=== PATIENT | female | born 1950 | race Caucasian/White ===

== ENCOUNTER 2022-12-04 10:48 | Observation (INO) ==
[2022-12-04] MEDS ORDERED: SODIUM CHLORIDE 0.9% 1000ML 1,000 ML IV ONE ×2 (10:57→15:00)
[2022-12-04 11:37] LABS: Basophils # (auto) 0.08 K/uL (0-0.2); Basophils % (auto) 0.8 %; Eosinophils # (auto) 0.05 K/uL (0-0.50); Eosinophils % (auto) 0.5 %; Hematocrit (blood only) 43.1 % (37.0-47.0); Hemoglobin 13.8 g/dl (12.0-16.0); Immature Granulocytes # (auto) 0.07 K/uL (0.01-0.20); Immature Granulocytes % (auto) 0.7 %; Lymphocytes # (auto) 1.17 K/uL (1.2-3.4); Lymphocytes % (auto) 12.3 %; Mean Corpuscular Hemoglobin 28.3 pg (25.0-34.0); Mean Corpuscular Volume 88.3 fL (80.0-100.0); Mean Platelet Volume 9.3 fL (9.4-12.4); Monocytes # (auto) 0.59 K/uL (0.11-0.59); Monocytes % (auto) 6.2 %; Neutrophils # (auto) 7.52 K/uL (1.40-6.50); Neutrophils % (auto) 79.5 %; Platelet Count 345 K/uL (130-400); RDW Coefficient of Variation 12.8 % (11.5-14.5); RDW Standard Deviation 41.4 fL (36.4-46.3); Red Blood Count 4.88 M/uL (4.20-5.40); White Blood Count 9.48 K/ul (4.8-10.8)
[2022-12-04 11:57] LABS: Albumin Globulin Ratio 1.5 (0.9-2); Albumin Level 4.3 gm/dl (3.4-5.0); BUN Creatinine Ratio 67.2 (10-20); Bilirubin,Total 0.9 mg/dl (0.2-1.0); Calcium 9.9 mg/dl (8.5-10.1); Creatinine Clr Calc Pharmacy 69.4 ml/min; Est GFR (African American) 103.3 ml/min; Est GFR (Non-African American) 89.2 ml/min; Globulin 2.9 gm/dl (2.5-4.0); Phosphorus 3.6 mg/dl (2.5-4.9); Potassium 4.1 mmol/L (3.5-5.1); Total Protein 7.2 gm/dl (6.0-8.3); Troponin I High Sensitivity 4.4 pg/ml (0-14)
--- NOTE | 2022-12-04 11:59 | XRay Report ---
XR chest 1V portable HISTORY: Atypical chest pain. COMPARISON: Chest 11/11/2022. FINDINGS: No pneumothorax or no pleural effusions. Left-sided dual-chamber pacemaker. The heart is no rmal in size. Cervical spinal fusion hardware is again noted. The lungs are clear. No evidence for pu lmonary edema. An atrial septal closure device is present. IMPRESSION: No significant change compared to the prior study. No acute process. ACT 112: Negative or not required by law. Electronically signed by: Sarmad Dickerson M.D. 12/04/2022 11:58 AM
[2022-12-04 12:02] LABS: Thyroid Stimulating Hormone 0.232 uIu/ml (0.300-4.500)
[2022-12-04] MEDS ORDERED: diphenhydrAMINE 50 MG/ML VIAL IV STA (12:25)
[2022-12-04] MEDS ORDERED: METOCLOPRAMIDE HCL INJ 5 MG/ML 2 ML VIAL IV STA (12:25)
[2022-12-04] MEDS ORDERED: FAMOTIDINE 20MG IV PUSH 20 MG/5 ML SYR IV STA (12:27)
[2022-12-04 12:37] LABS: T4 Free Thyroxine 1.45 ng/dl (0.61-1.60)
[2022-12-04] MEDS ORDERED: OPTIRAY 320 500ml IV ONE (13:51)
--- NOTE | 2022-12-04 14:10 | CT Scan Report ---
UNENHANCED CT OF THE BRAIN; CT ANGIOGRAM OF THE BRAIN; CT ANGIOGRAM OF THE NECK CLINICAL HISTORY: Vertigo. COMPARISON STUDY: CT of the brain dated 10/14/2022. TECHNIQUE: Unenhanced axial CT scan of the brain is performed. Subsequently, following the IV adminis tration of 108 of [employer] 320, CT angiogram of the head and neck was performed from the aortic arch t o the vertex. Images are reviewed in the axial, sagittal, and coronal planes. 3-D MIPS images are cre ated and assessed. IV contrast was administered without complication. All measurements were calculate d based on NASCET criteria. A dose lowering technique was utilized adhering to the principles of ALA RA. The examinations are compromised by motion artifact. CT DOSE: 2791.83 mGy.cm FINDINGS: Brain parenchyma: There is age-related involutional change noting moderate subcortical and periventri cular microangiopathic disease. There is no hemorrhage, mass effect, or evidence of acute territorial ischemia by CT criteria. There is no evidence of enhancing mass lesion on the angiogram phase images . The ventricles, sulci, and cisterns are prominent secondary to involutional change. Cox-white arielle er differentiation is preserved. No extra-axial fluid collection is seen. Thoracic aorta: There is atherosclerotic calcification of the thoracic aorta. Visualized portions of the thoracic aorta are normal in caliber. The aortic arch demonstrates standard 3-vessel anatomy. Right carotid arterial system: The right common carotid artery is widely patent, as are the right int ernal and external carotid arteries. Calcified plaque is noted in the carotid bulb. Left carotid arterial system: The left common carotid artery is widely patent, as are the left administration internship al and external carotid arteries. Calcified plaque is noted in the carotid bulb. Vertebral arteries: The vertebral arteries are widely patent bilaterally and codominant. Subclavian arteries: Widely patent bilaterally. Intracranial vasculature: There is atherosclerotic calcification of the cavernous carotid arteries. T he internal carotid arteries are patent at the skull base, as are the anterior and middle cerebral ar teries bilaterally. The vertebrobasilar system and posterior cerebral arteries are widely patent. The vertebral arteries are codominant. There are small bilateral posterior communicating arteries. There is no aneurysm, high-grade stenosis, or focal vessel cut off seen throughout the intracranial circul ation. Jugular veins: Patent bilaterally. Dural sinuses: Patent. Lung apices: Partially visualized upper lobe lung parenchyma appears clear. Soft tissues: The visualized pharyngeal soft tissues are normal in appearance noting angiographic pha se technique. The oropharyngeal airway appears widely patent. The salivary and thyroid glands are nor mal in appearance. No cervical lymphadenopathy is seen. Pacemaker leads are noted at the left thoraci c inlet. Skeletal structures: The skeletal structures are osteopenic. The calvarium appears intact. The cervic al spine is maintained thickening multilevel spondylotic and postsurgical change. No lytic or blastic lesion is seen. Orbits: The bony orbits are intact. Orbital contents are normal as visualized noting a right ocular l ens implant. Sinuses and mastoids: The paranasal sinuses are clear. The mastoid air cells are well pneumatized. IMPRESSION: 1. There is no hemorrhage, mass effect, or evidence of acute territorial ischemia by CT criteria noti ng a motion degraded examination. 2. Unremarkable CT angiogram of the brain. 3. Unremarkable CT angiogram of the neck. ACT 112: Negative or not required by law. Electronically signed by: Carlos Gallo M.D. 12/04/2022 2:07 PM
[2022-12-04] MEDS ORDERED: PROMETHAZINE 25 MG/51 ML BAG IV STA (15:00)
--- NOTE | 2022-12-04 15:11 | Emergency Department Note ---
Impression & Plan Vertigo, Dehydration, Metabolic acidosis, Intractable nausea and vomiting, Adult failure to thrive ED Provider Note NAME: BAYRON FALL AGE: 72 SEX: F ARRIVES VIA: Walk-In INFORMANT: Patient ED PROVIDER(S): Ole Khanna MD CHIEF COMPLAINT: Vertigo, nausea vomiting, referred PLAN: Disposition: Admit MEDICAL DECISION MAKING: The patient is a pleasant 72-year-old woman with a past medical history of GERD with esophagitis, depression, tardive dyskinesia, CORINA, type 2 diabetes, peripheral neuropathy, hypertension, hyperlipidemia, sick sinus syndrome status post PPM who presents to the emergency department accompanied by her daughter for evaluation of persistent symptoms of vertigo with room spinning and associated nausea and vomiting which has been chronic for months. The patient was seen in the emergency yesterday for evaluation of her symptoms of vertigo and was treated with meclizine and Ativan. She was seen by her PCP office this morning and referred to the emergency department due to persistence of symptoms and concern for dehydration. They deny fevers, chills, cough, congestion, urinary symptoms. Patient has had poor oral intake. The patient reports that she has not moved her bowels since Friday. She had been seen in the emergency department in October and also September by this provider had an unremarkable CT of her abdomen pelvis in September and KUB in October demonstrating constipation. The patient had improved at that time following IV fluid hydration, famotidine, Carafate and was started on lactulose prn. She was noted to have a mild metabolic acidosis likely related to suspected starvation ketosis given her poor oral intake. On subsequent outpatient follow-up this had resolved in the setting of her IV fluid hydration during her emergency department visit. On arrival the patient is uncomfortable but no acute distress, afebrile with stable vital signs. She appears clinically dry. She has mild epigastric discomfort without discrete tenderness. Her tardive dyskinesia is at baseline. She exhibits generalized weakness in all extremities without focal weakness. EKG without overt acute ischemia. CXR negative for acute cardiopulmonary process. WBC, H/H and platelets within normal limits. Chemistry demonstrates similar mild metabolic acidosis as was the case in October with anion gap of 19 and bicarb of 18. BUN is 43 with BUN/creatinine >60. LFTs unremarkable. High- sensitivity troponin 4.4, within normal limits. TSH is slightly low at 0.232 however free T4 within normal limits. COVID-19 RNA, JENNIFER test was negative. CT of the head and CT of the head and neck were performed and were negative for acute abnormalities. Upon evaluation the patient did report some improvement in her symptoms though still a persistence of vertigo and mild nausea. Given the patient's continued symptoms in the setting of dehydration and poor oral intake the patient and her daughter at the bedside agree with plan for admission for further management. Case was discussed with LATRICE Engle hospitalist, who will evaluate the patient for admission. Triage Nursing notes reviewed and agree them. Prior/outside medical records reviewed Vital Signs: reviewed Differential diagnosis: Benign positional vertigo, dehydration, hypovolemia, anemia, tumor, infection, hypoglycemia, electrolyte abnormalities, cardiac sources, intracerebral event, toxicologic, neurologic, as well as other pathologies. ER treatment provided: See below. Diagnostics interpreted by me: ECG: Normal sinus rhythm, 73 bpm, no ectopy, right bundle branch block, no overt ST elevation or depression, QTc 467, QRS 122 Cardiac Monitoring: An order for continuous cardiac monitoring was placed and demonstrated Normal sinus rhythm, 73 bpm, no ectopy. Laboratory studies: See below Imaging studies: See below Consultation(s): LATRICE Engle hospitalist HPI: The patient is a pleasant 72-year-old woman with a past medical history of GERD with esophagitis, depression, tardive dyskinesia, CORINA, type 2 diabetes, peripheral neuropathy, hypertension, hyperlipidemia, sick sinus syndrome status post PPM who presents to the emergency department accompanied by her daughter for evaluation of persistent symptoms of vertigo with room spinning and associated nausea and vomiting which has been chronic for months. The patient was seen in the emergency yesterday for evaluation of her symptoms of vertigo and was treated with meclizine and Ativan. She was seen by her PCP office this morning and referred to the emergency department due to persistence of symptoms and concern for dehydration. They deny fevers, chills, cough, congestion, urinary symptoms. Patient has had poor oral intake. The patient reports that she has not moved her bowels since Friday. She had been seen in the emergency department in October and also September by this provider had an unremarkable CT of her abdomen pelvis in September and KUB in October demonstrating constipation. The patient had improved at that time following IV fluid hydration, famotidine, Carafate and was started on lactulose prn. She was noted to have a mild metabolic acidosis likely related to suspected starvation ketosis given her poor oral intake. On subsequent outpatient follow-up this had resolved in the setting of her IV fluid hydration during her emergency department visit. ROS: See above HPI for pertinent positives & negatives. A total of 10 systems reviewed and were otherwise negative. VITALS:See Below PHYSICAL EXAMINATION: GENERAL: Awake, alert, fatigued/uncomfortable-appearing, in no distress HENT: Normocephalic, atraumatic. Oropharynx with dry mucous membranes and otherwise unremarkable. EYES: Normal conjunctiva. Sclera non-icteric. EOMI. No nystamgus. PEARRL. NECK: Supple. No nuchal rigidity. FROM. No JVD. RESPIRATORY: Clear to auscultation. CARDIAC: Regular rate, normal rhythm. Extremities warm and well perfused. Pulses equal. ABDOMEN: Soft, non-distended. Mild epigastric discomfort without discrete tenderness. No rebound or guarding. No masses. RECTAL: Deferred. MUSCULOSKELETAL: Chest examination reveals no tenderness. The back is symmetrical on inspection without obvious abnormality. There is no CVA tenderness to palpation. No joint edema. LOWER EXTREMITIES: Calves are equal size bilaterally and non-tender. No edema. No discoloration. NEURO:No focal sensory or motor deficits noted. Generalized weakness without focal extremity weakness. Tardive dyskinesia is at baseline. SKIN: No rash or jaundice noted. Ole Khanna MD Past Med/Surg History Medical History Asthma, mild persistent DM type 2 with diabetic peripheral neuropathy Dyslipidemia GERD with esophagitis GERD and medium-sized hiatus hernia with associated Aravind's erosions (dx [address] Portillo) s/p lap Saji Fundoplication by Dr. Peralta at [facility] [place] in May of 2021 HTN (hypertension) Iron deficiency anemia Major depressive disorder CORINA (obstructive sleep apnea) PTSD (post-traumatic stress disorder) RLS (restless legs syndrome) SSS (sick sinus syndrome) Tardive dyskinesia Vitamin D deficiency Surgical History Amputation toe H/O ovarian cystectomy Hammer toe History of appendectomy History of bladder surgery vaginal sling History of bunionectomy History of cardiac cath History of cataract surgery History of cholecystectomy History of colonoscopy History of esophagogastroduodenoscopy (EGD) History of hysterectomy History of knee replacement bilateral History of repair of hiatal hernia History of tonsillectomy Pacemaker S/P cardiac pacemaker procedure S/P cervical spinal fusion S/P repair of paraesophageal hernia Status post rotator cuff repair Family History Daughter Cervical cancer Father Gallbladder cancer Aunt Diabetes Brother Suicide Heart disease Mother Schizophrenia Suicide Social History Smoking Status: Never smoker Hx Alcohol Use: No Hx Substance Use: No Preferred Language: Tanzanian Feels Safe at Home: Yes Allergies Allergies Allergy/AdvReac Type Severity Reaction Status Date / Time camphor [From Sarna Original] Allergy Intermediate Rash Verified 12/04/22 09:42 menthol [From Sarna Original] Allergy Intermediate Rash Verified 12/04/22 09:42 adhesive Allergy Mild TAPE Verified 12/04/22 09:42 aspirin [From Aggrenox] Allergy Unknown Unknown Verified 12/04/22 09:42 chlorpromazine Allergy Unknown CAN'T Verified 12/04/22 09:42 REMEMBER dipyridamole [From Aggrenox] Allergy Unknown Unknown Verified 12/04/22 09:42 latex Allergy Unknown Unknown Verified 12/04/22 09:42 loratadine Allergy Unknown Unknown Verified 12/04/22 09:42 prazosin Allergy Unknown CAN'T Verified 12/04/22 09:42 REMEMBER sulfamethoxazole [Bactrim] Allergy Unknown CAN'T Verified 12/04/22 09:42 REMEMBER trimethoprim [Bactrim] Allergy Unknown CAN'T Verified 12/04/22 09:42 REMEMBER cyclobenzaprine AdvReac Intermediate psych Verified 12/04/22 09:42 [From Flexeril] complications oxycodone AdvReac Intermediate ITCHING Verified 12/04/22 09:42 Home Meds Home Medications Medication Instructions Recorded Confirmed insulin glargine 100 unit/mL (3 6 unit subcut QPM 10/25/22 12/04/22 mL) subcutaneous pen (Lantus Solostar U-100 Insulin) diclofenac sodium 1 % topical gel 2 g topical QID PRN Pain 11/11/22 12/04/22 (Voltaren Arthritis Pain) gabapentin 100 mg capsule 100 mg PO QPM 11/11/22 12/04/22 gabapentin 300 mg capsule 300 mg PO TID 11/11/22 12/04/22 pantoprazole 40 mg tablet,delayed 40 mg PO DAILY 11/11/22 12/04/22 release (Protonix) metoprolol tartrate 25 mg tablet 12.5 mg PO DAILY 12/04/22 12/04/22 Previous Rx's Medication Instructions Recorded albuterol sulfate 2.5 mg/3 mL 2.5 mg (3 mL) inhalation Q6H PRN 09/25/22 (0.083 %) solution for nebulization shortness of breath or wheezing #180 mL albuterol sulfate 90 mcg/actuation 2 puff inhalation Q6H PRN 09/25/22 aerosol inhaler (Proventil HFA) shortness of breath or wheezing #8.5 grams amino acids-protein hydrolysate 16 30 ml PO BID #5,760 mL 09/25/22 gram-100 kcal/30 mL oral liquid (Liquacel) aspirin 81 mg tablet,delayed 81 mg PO DAILY #90 tabs 09/25/22 release (Adult Low Dose Aspirin) budesonide-formoterol HFA 160 2 puff inhalation BID #10.2 grams 09/25/22 mcg-4.5 mcg/actuation aerosol inhaler (Symbicort) buspirone 5 mg tablet See Rx Instructions PO .COMPLEX 09/25/22 #90 tabs cholecalciferol (vitamin D3) 50 50 mcg PO DAILY #30 caps 09/25/22 mcg (2,000 unit) capsule fluticasone propionate 50 2 spray intranasal DAILY #16 grams 09/25/22 mcg/actuation nasal spray,suspension (Flonase Allergy Relief) metoclopramide HCl 5 mg tablet 5 mg PO TID PRN nausea and 09/25/22 (Reglan) vomiting #30 tabs trolamine salicylate 10 % topical 1 applic topical DAILY PRN muscle 09/25/22 cream pain #100 grams venlafaxine 150 mg 150 mg PO DAILY #90 caps 09/25/22 capsule,extended release 24 hr empagliflozin 25 mg tablet 25 mg PO DAILY #90 tabs 10/03/22 (Jardiance) pen needle, diabetic 32 gauge x #100 ea 10/03/22" (BD Ultra-Fine Shreya Pen Needle) blood sugar diagnostic (OneTouch #100 ea 10/30/22 Ultra Test strips) blood-glucose meter #1 ea 11/13/22 lisinopril 2.5 mg tablet 2.5 mg PO DAILY #30 tabs 11/13/22 atorvastatin 40 mg tablet 40 mg PO DAILY #90 tabs 11/15/22 blood sugar diagnostic (OneTouch #100 ea 11/18/22 Verio test strips) lancets (EdRoverTouch UltraSoft #200 ea 11/18/22 Lancets) meclizine 12.5 mg tablet 12.5 mg PO TID PRN dizziness #20 12/02/22 tabs Results & Data (ED) Vital Signs Vital Signs - 24 hr 12/04/22 10:50 12/04/22 11:43 12/04/22 12:00 Temperature 36.6 C Temperature Source Temporal Artery Scan Pulse Rate 77 78 Pulse Rate from SpO2 Sensor Pulse Rhythm Regular Respiratory Rate 26 H 18 Respiratory Effort / Characteristics Spontaneous Blood Pressure 138/74 155/88 H Blood Pressure Mean 95 110 Pulse Oximetry 98 100 Oxygen Delivery Method Room Air Room Air Sepsis New/Unexplained Change in Mental Status N/A Sepsis Action Taken by Nursing No Action Required 12/04/22 12:00 12/04/22 12:22 12/04/22 13:01 Temperature Temperature Source Pulse Rate 75 74 83 Pulse Rate from SpO2 Sensor 77 82 Pulse Rhythm Respiratory Rate 19 24 Respiratory Effort / Characteristics Blood Pressure Blood Pressure Mean Pulse Oximetry 100 100 Oxygen Delivery Method Sepsis New/Unexplained Change in Mental Status Sepsis Action Taken by Nursing 12/04/22 13:01 12/04/22 14:00 12/04/22 14:00 Temperature Temperature Source Pulse Rate 78 Pulse Rate from SpO2 Sensor 78 Pulse Rhythm Respiratory Rate 24 Respiratory Effort / Characteristics Blood Pressure 132/47 L 118/60 Blood Pressure Mean 75 79 Pulse Oximetry 100 Oxygen Delivery Method Sepsis New/Unexplained Change in Mental Status Sepsis Action Taken by Nursing 12/04/22 15:00 12/04/22 16:00 12/04/22 16:11 Temperature Temperature Source Pulse Rate 91 H 90 90 Pulse Rate from SpO2 Sensor Pulse Rhythm Respiratory Rate 28 H 32 H Respiratory Effort / Characteristics Blood Pressure 123/51 L 118/63 Blood Pressure Mean 75 81 Pulse Oximetry 97 98 Oxygen Delivery Method Sepsis New/Unexplained Change in Mental Status Sepsis Action Taken by Nursing Laboratory Data Attestation: I reviewed the patient's lab results. 12/04/22 11:05 12/04/22 11:05 Lab Results 12/04/22 12/04/22 12/04/22 Range/Units 11:05 11:05 11:05 WBC 9.48 (4.8-10.8) K/ul RBC 4.88 (4.20-5.40) M/uL Hgb 13.8 (12.0-16.0) g/dl Hct 43.1 (37.0-47.0) % MCV 88.3 (80.0-100.0) fL MCH 28.3 (25.0-34.0) pg MCHC 32.0 (32.0-36.0) g/dL RDW Std Deviation 41.4 (36.4-46.3) fL RDW Coeff of Peggy 12.8 (11.5-14.5) % Plt Count 345 (130-400) K/uL MPV 9.3 L (9.4-12.4) fL Immature Gran % (Auto) 0.7 % Neut % (Auto) 79.5 % Lymph % (Auto) 12.3 % Culberson % (Auto) 6.2 % Eos % (Auto) 0.5 % Baso % (Auto) 0.8 % Neut # (Auto) 7.52 H (1.40-6.50) K/uL Lymph # (Auto) 1.17 L (1.2-3.4) K/uL Culberson # (Auto) 0.59 (0.11-0.59) K/uL Eos # (Auto) 0.05 (0-0.50) K/uL Baso # (Auto) 0.08 (0-0.2) K/uL Immature Gran # (Auto) 0.07 (0.01-0.20) K/uL Sodium 135 L (136-145) mmol/L Potassium 4.1 (3.5-5.1) mmol/L Chloride 98 (98-107) mmol/L Carbon Dioxide 18 L (21-32) mmol/L Anion Gap 19 H (3-11) BUN 43 H D (6-23) mg/dl Creatinine 0.64 (0.6-1.2) mg/dl Est Cr Clr Drug Dosing 69.4 ml/min Est GFR ( Amer) 103.3 ml/min Est GFR (Non-Af Amer) 89.2 ml/min BUN/Creatinine Ratio 67.2 H (10-20) Glucose 159 H (70-99(Fasting)) mg/dl POC Glucose (70-99) mg/dl Calcium 9.9 (8.5-10.1) mg/dl Phosphorus 3.6 (2.5-4.9) mg/dl Magnesium 2.0 (1.7-2.4) mg/dl Total Bilirubin 0.9 (0.2-1.0) mg/dl AST 28 (13-39) U/L ALT 21 (7-52) U/L Alkaline Phosphatase 85 (34-104) U/L Troponin I High Sens 4.4 (0-14) pg/ml Total Protein 7.2 (6.0-8.3) gm/dl Albumin 4.3 (3.4-5.0) gm/dl Globulin 2.9 (2.5-4.0) gm/dl Albumin/Globulin Ratio 1.5 (0.9-2) Lipase 10 L (11-82) U/L TSH 0.232 L (0.300-4.500) uIu/ml Free T4 1.45 (0.61-1.60) ng/dl SARS-CoV-2, RNA, NAAT (NEGATIVE) 12/04/22 12/04/22 Range/Units 11:33 11:35 WBC (4.8-10.8) K/ul RBC (4.20-5.40) M/uL Hgb (12.0-16.0) g/dl Hct (37.0-47.0) % MCV (80.0-100.0) fL MCH (25.0-34.0) pg MCHC (32.0-36.0) g/dL RDW Std Deviation (36.4-46.3) fL RDW Coeff of Peggy (11.5-14.5) % Plt Count (130-400) K/uL MPV (9.4-12.4) fL Immature Gran % (Auto) % Neut % (Auto) % Lymph % (Auto) % Culberson % (Auto) % Eos % (Auto) % Baso % (Auto) % Neut # (Auto) (1.40-6.50) K/uL Lymph # (Auto) (1.2-3.4) K/uL Culberson # (Auto) (0.11-0.59) K/uL Eos # (Auto) (0-0.50) K/uL Baso # (Auto) (0-0.2) K/uL Immature Gran # (Auto) (0.01-0.20) K/uL Sodium (136-145) mmol/L Potassium (3.5-5.1) mmol/L Chloride (98-107) mmol/L Carbon Dioxide (21-32) mmol/L Anion Gap (3-11) BUN (6-23) mg/dl Creatinine (0.6-1.2) mg/dl Est Cr Clr Drug Dosing ml/min Est GFR ( Amer) ml/min Est GFR (Non-Af Amer) ml/min BUN/Creatinine Ratio (10-20) Glucose (70-99(Fasting)) mg/dl POC Glucose 135 H (70-99) mg/dl Calcium (8.5-10.1) mg/dl Phosphorus (2.5-4.9) mg/dl Magnesium (1.7-2.4) mg/dl Total Bilirubin (0.2-1.0) mg/dl AST (13-39) U/L ALT (7-52) U/L Alkaline Phosphatase (34-104) U/L Troponin I High Sens (0-14) pg/ml Total Protein (6.0-8.3) gm/dl Albumin (3.4-5.0) gm/dl Globulin (2.5-4.0) gm/dl Albumin/Globulin Ratio (0.9-2) Lipase (11-82) U/L TSH (0.300-4.500) uIu/ml Free T4 (0.61-1.60) ng/dl SARS-CoV-2, RNA, NAAT NEGATIVE (NEGATIVE) Administered Medications Discontinued Medications Diphenhydramine HCl (Diphenhydramine 50 Mg/Ml Vial) 12.5 mg IV NOW STA Stop: 12/04/22 12:26 Last Admin: 12/04/22 12:33 Dose: 12.5 mg Documented By: DARRYN Sodium Chloride (Nss 1000ml) 1,000 mls @ 999 mls/hr IV .Q1H1M ONE Stop: 12/04/22 11:57 Last Infusion: 12/04/22 12:56 Dose: 0 mls/hr Documented By: Admin: 12/04/22 11:32 Dose: 999 mls/hr Documented By: DARRYN Famotidine (Pepcid 20mg Iv Push) 20 mg in 5 mls @ 2.5 mls/min IV NOW STA Stop: 12/04/22 12:28 Last Admin: 12/04/22 12:35 Dose: 2.5 mls/min Documented By: DARRYN Promethazine HCl (Phenergan) 25 mg in 51 mls @ 204 mls/hr IV NOW STA Stop: 12/04/22 15:14 Last Infusion: 12/04/22 15:33 Dose: 0 mls/hr Documented By: Admin: 12/04/22 15:13 Dose: 204 mls/hr Documented By: ML Sodium Chloride (Nss 1000ml) 1,000 mls @ 999 mls/hr IV .Q1H1M ONE Stop: 12/04/22 16:00 Last Infusion: 12/04/22 16:16 Dose: 0 mls/hr Documented By: Admin: 12/04/22 15:14 Dose: 999 mls/hr Documented By: ML Ioversol (Optiray 320 500ml) 108 ml IV ONCE ONE Stop: 12/04/22 13:52 Last Admin: 12/04/22 13:52 Dose: 108 ml Documented By: MARISOL Metoclopramide HCl (Metoclopramide Hcl Inj 5 Mg/Ml 2 Ml Vial) 5 mg IV NOW STA Stop: 12/04/22 12:26 Last Admin: 12/04/22 12:35 Dose: 5 mg Documented By: DARRYN Imaging Data Radiologist's Impression: Chest X-Ray 12/04/22 11:00 XR chest 1V portable HISTORY: Atypical chest pain. COMPARISON: Chest 11/11/2022. FINDINGS: No pneumothorax or no pleural effusions. Left-sided dual-chamber pacemaker. The heart is normal in size. Cervical spinal fusion hardware is again noted. The lungs are clear. No evidence for pulmonary edema. An atrial septal closure device is present. IMPRESSION: No significant change compared to the prior study. No acute process. ACT 112: Negative or not required by law. Electronically signed by: Sarmad Dickerson M.D. 12/04/2022 11:[address] 12/04/22 12:[address] OF THE BRAIN; CT ANGIOGRAM OF THE BRAIN; CT ANGIOGRAM OF THE NECK CLINICAL HISTORY: Vertigo. COMPARISON STUDY: CT of the brain dated 10/14/2022. TECHNIQUE: Unenhanced axial CT scan of the brain is performed. Subsequently, following the IV administration of 108 of Optiray 320, CT angiogram of the head and neck was performed from the aortic arch to the vertex. Images are reviewed in the axial, sagittal, and coronal planes. 3-D MIPS images are created and assessed. IV contrast was administered without complication. All measurements were calculated based on NASCET criteria. A dose lowering technique was utilized adhering to the principles of ALARA. The examinations are compromised by motion artifact. CT DOSE: 2791.83 mGy.cm FINDINGS: Brain parenchyma: There is age-related involutional change noting moderate subcortical and periventricular microangiopathic disease. There is no hemorrhage, mass effect, or evidence of acute territorial ischemia by CT criteria. There is no evidence of enhancing mass lesion on the angiogram phase images. The ventricles, sulci, and cisterns are prominent secondary to involutional change. Cox-white matter differentiation is preserved. No extra- axial fluid collection is seen. Thoracic aorta: There is atherosclerotic calcification of the thoracic aorta. Visualized portions of the thoracic aorta are normal in caliber. The aortic arch demonstrates standard 3-vessel anatomy. Right carotid arterial system: The right common carotid artery is widely patent, as are the right internal and external carotid arteries. Calcified plaque is noted in the carotid bulb. Left carotid arterial system: The left common carotid artery is widely patent, as are the left internal and external carotid arteries. Calcified plaque is noted in the carotid bulb. Vertebral arteries: The vertebral arteries are widely patent bilaterally and codominant. Subclavian arteries: Widely patent bilaterally. Intracranial vasculature: There is atherosclerotic calcification of the cavernous carotid arteries. The internal carotid arteries are patent at the skull base, as are the anterior and middle cerebral arteries bilaterally. The vertebrobasilar system and posterior cerebral arteries are widely patent. The vertebral arteries are codominant. There are small bilateral posterior communicating arteries. There is no aneurysm, high-grade stenosis, or focal vessel cut off seen throughout the intracranial circulation. Jugular veins: Patent bilaterally. Dural sinuses: Patent. Lung apices: Partially visualized upper lobe lung parenchyma appears clear. Soft tissues: The visualized pharyngeal soft tissues are normal in appearance n oting angiographic phase technique. The oropharyngeal airway appears widely patent. The salivary and thyroid glands are normal in appearance. No cervical lymphadenopathy is seen. Pacemaker leads are noted at the left thoracic inlet. Skeletal structures: The skeletal structures are osteopenic. The calvarium appears intact. The cervical spine is maintained thickening multilevel spondylotic and postsurgical change. No lytic or blastic lesion is seen. Orbits: The bony orbits are intact. Orbital contents are normal as visualized noting a right ocular lens implant. Sinuses and mastoids: The paranasal sinuses are clear. The mastoid air cells are well pneumatized. IMPRESSION: 1. There is no hemorrhage, mass effect, or evidence of acute territorial ischem ia by CT criteria noting a motion degraded examination. 2. Unremarkable CT angiogram of the brain. 3. Unremarkable CT angiogram of the neck. ACT 112: Negative or not required by law. Electronically signed by: Carlos Gallo M.D. 12/04/2022 2:07 PM Head CTA 12/04/22 12:[address] OF THE BRAIN; CT ANGIOGRAM OF THE BRAIN; CT ANGIOGRAM OF THE NECK CLINICAL HISTORY: Vertigo. COMPARISON STUDY: CT of the brain dated 10/14/2022. TECHNIQUE: Unenhanced axial CT scan of the brain is performed. Subsequently, following the IV administration of 108 of Optiray 320, CT angiogram of the head and neck was performed from the aortic arch to the vertex. Images are reviewed in the axial, sagittal, and coronal planes. 3-D MIPS images are created and assessed. IV contrast was administered without complication. All measurements were calculated based on NASCET criteria. A dose lowering technique was utilized adhering to the principles of ALARA. The examinations are compromised by motion artifact. CT DOSE: 2791.83 mGy.cm FINDINGS: Brain parenchyma: There is age-related involutional change noting moderate subc ortical and periventricular microangiopathic disease. There is no hemorrhage, mass effect, or evidence of acute territorial ischemia by CT criteria. There is no evidence of enhancing mass lesion on the angiogram phase images. The ventricles, sulci, and cisterns are prominent secondary to involutional change. Cox-white matter differentiation is preserved. No extra-axial fluid collection is seen. Thoracic aorta: There is atherosclerotic calcification of the thoracic aorta. Visualized portions of the thoracic aorta are normal in caliber. The aortic arch demonstrates standard 3-vessel anatomy. Right carotid arterial system: The right common carotid artery is widely patent, as are the right internal and external carotid arteries. Calcified plaque is noted in the carotid bulb. Left carotid arterial system: The left common carotid artery is widely patent, as are the left internal and external carotid arteries. Calcified plaque is noted in the carotid bulb. Vertebral arteries: The vertebral arteries are widely patent bilaterally and codominant. Subclavian arteries: Widely patent bilaterally. Intracranial vasculature: There is atherosclerotic calcification of the cavernous carotid arteries. The internal carotid arteries are patent at the skull base, as are the anterior and middle cerebral arteries bilaterally. The vertebrobasilar system and posterior cerebral arteries are widely patent. The vertebral arteries are codominant. There are small bilateral posterior communicating arteries. There is no aneurysm, high-grade stenosis, or focal vessel cut off seen throughout the intracranial circulation. Jugular veins: Patent bilaterally. Dural sinuses: Patent. Lung apices: Partially visualized upper lobe lung parenchyma appears clear. Soft tissues: The visualized pharyngeal soft tissues are normal in appearance noting angiographic phase technique. The oropharyngeal airway appears widely patent. The salivary and thyroid glands are normal in appearance. No cervical lymphadenopathy is seen. Pacemaker leads are noted at the left thoracic inlet. Skeletal structures: The skeletal structures are osteopenic. The calvarium appears intact. The cervical spine is maintained thickening multilevel spondylo tic and postsurgical change. No lytic or blastic lesion is seen. Orbits: The bony orbits are intact. Orbital contents are normal as visualized noting a right ocular lens implant. Sinuses and mastoids: The paranasal sinuses are clear. The mastoid air cells are well pneumatized. IMPRESSION: 1. There is no hemorrhage, mass effect, or evidence of acute territorial ischemia by CT criteria noting a motion degraded examination. 2. Unremarkable CT angiogram of the brain. 3. Unremarkable CT angiogram of the neck. ACT 112: Negative or not required by law. Electronically signed by: Carlos Gallo M.D. 12/04/2022 2:07 PM Neck CTA 12/04/22 12:[address] OF THE BRAIN; CT ANGIOGRAM OF THE BRAIN; CT ANGIOGRAM OF THE NECK CLINICAL HISTORY: Vertigo. COMPARISON STUDY: CT of the brain dated 10/14/2022. TECHNIQUE: Unenhanced axial CT scan of the brain is performed. Subsequently, following the IV administration of 108 of Optiray 320, CT angiogram of the head and neck was performed from the aortic arch to the vertex. Images are reviewed in the axial, sagittal, and coronal planes. 3-D MIPS images are created and assessed. IV contrast was administered without complication. All measurements were calculated based on NASCET criteria. A dose lowering technique was uti lized adhering to the principles of ALARA. The examinations are compromised by motion artifact. CT DOSE: 2791.83 mGy.cm FINDINGS: Brain parenchyma: There is age-related involutional change noting moderate subcortical and periventricular microangiopathic disease. There is no hemorrhage, mass effect, or evidence of acute territorial ischemia by CT criteria. There is no evidence of enhancing mass lesion on the angiogram phase images. The ventricles, sulci, and cisterns are prominent secondary to involutional change. Cox-white matter differentiation is preserved. No extra- axial fluid collection is seen. Thoracic aorta: There is atherosclerotic calcification of the thoracic aorta. Visualized portions of the thoracic aorta are normal in caliber. The aortic arch demonstrates standard 3-vessel anatomy. Right carotid arterial system: The right common carotid artery is widely patent, as are the right internal and external carotid arteries. Calcified plaque is noted in the carotid bulb. Left carotid arterial system: The left common carotid artery is widely patent, as are the left internal and external carotid arteries. Calcified plaque is noted in the carotid bulb. Vertebral arteries: The vertebral arteries are widely patent bilaterally and codominant. Subclavian arteries: Widely patent bilaterally. Intracranial vasculature: There is atherosclerotic calcification of the cavernous carotid arteries. The internal carotid arteries are patent at the skull base, as are the anterior and middle cerebral arteries bilaterally. The vertebrobasilar system and posterior cerebral arteries are widely patent. The vertebral arteries are codominant. There are small bilateral posterior communicating arteries. There is no aneurysm, high-grade stenosis, or focal vess el cut off seen throughout the intracranial circulation. Jugular veins: Patent bilaterally. Dural sinuses: Patent. Lung apices: Partially visualized upper lobe lung parenchyma appears clear. Soft tissues: The visualized pharyngeal soft tissues are normal in appearance noting angiographic phase technique. The oropharyngeal airway appears widely patent. The salivary and thyroid glands are normal in appearance. No cervical lymphadenopathy is seen. Pacemaker leads are noted at the left thoracic inlet. Skeletal structures: The skeletal structures are osteopenic. The calvarium appears intact. The cervical spine is maintained thickening multilevel spondylotic and postsurgical change. No lytic or blastic lesion is seen. Orbits: The bony orbits are intact. Orbital contents are normal as visualized noting a right ocular lens implant. Sinuses and mastoids: The paranasal sinuses are clear. The mastoid air cells are well pneumatized. IMPRESSION: 1. There is no hemorrhage, mass effect, or evidence of acute territorial ischemia by CT criteria noting a motion degraded examination. 2. Unremarkable CT angiogram of the brain. 3. Unremarkable CT angiogram of the neck. ACT 112: Negative or not required by law. Electronically signed by: Carlos Gallo M.D. 12/04/2022 2:07 PM Discharge Plan Visit Data Chief Complaint: Weakness Stated Complaint: WEAKNESS,DIFFICULTY SPEAKING/WALKING ED Provider: Ole Khanna Discharge Problem: Vertigo, Dehydration, Metabolic acidosis, Intractable nausea and vomiting, Adult failure to thrive Forms Stand Alone Forms: My [facility] Prescriptions Prescriptions: No Action (DME) OneTouch Ultra Test Strip See Rx Instructions .ROUTE .MEDSUPPLY Qty: 100 0RF Rx Instructions: Check blood sugar before meals and at bedtime atorvastatin 40 mg tablet 40 mg PO DAILY Qty: 90 3RF (DME) lancets [OneTouch UltraSoft Lancets] [facility] See Rx Instructions .Route Qty: 200 3RF Rx Instructions: Check blood sugar before meals and at bedtime (DME) OneTouch Verio test strips Strip See Rx Instructions .Route Qty: 100 3RF Rx Instructions: Check blood sugar before meals and at bedtime Jardiance 25 mg tablet 25 mg PO DAILY Qty: 90 3RF (DME) pen needle, diabetic [BD Ultra-Fine Shreya Pen Needle] 32 gauge x 5/32" needle See Rx Instructions .ROUTE .MEDSUPPLY Qty: 100 3RF Rx Instructions: As directed lisinopril 2.5 mg tablet 2.5 mg PO DAILY Qty: 30 2RF (DME) blood-glucose meter Kit See Rx Instructions .Route Qty: 1 0RF Rx Instructions: E11.42 check BSG four times daily metoprolol tartrate 25 mg tablet 12.5 mg PO DAILY Rx Instructions: take 1/2 in am and 1/2 in pm metoclopramide HCl [Reglan] 5 mg tablet 5 mg PO TID PRN (Reason: nausea and vomiting) Qty: 30 0RF cholecalciferol (vitamin D3) 50 mcg (2,000 unit) capsule 50 mcg PO DAILY Qty: 30 0RF trolamine salicylate 10 % cream 1 applic topical DAILY PRN (Reason: muscle pain) Qty: 100 0RF albuterol sulfate 2.5 mg /3 mL (0.083 %) solution for nebulization 2.5 mg inhalation Q6H PRN (Reason: shortness of breath or wheezing) Qty: 180 3RF venlafaxine 150 mg capsule,extended release 24hr 150 mg PO DAILY Qty: 90 3RF aspirin [Adult Low Dose Aspirin] 81 mg tablet,delayed release (DR/EC) 81 mg PO DAILY Qty: 90 3RF fluticasone propionate [Flonase Allergy Relief] 50 mcg/actuation spray,suspension 2 spray intranasal DAILY Qty: 16 2RF Rx Instructions: administer into each nostril Liquacel 16-100 gram-kcal/30 mL liquid 30 ml PO BID Qty: 5760 0RF buspirone 5 mg tablet See Rx Instructions PO .COMPLEX Qty: 90 2RF Rx Instructions: 2 tabs in the morning and 1 tab in the evening orally; budesonide-formoterol [Symbicort] 160-4.5 mcg/actuation HFA aerosol inhaler 2 puff inhalation BID Qty: 10.2 3RF Rx Instructions: Rinse mouth out after use albuterol sulfate [Proventil HFA] 90 mcg/actuation HFA aerosol inhaler 2 puff inhalation Q6H PRN (Reason: shortness of breath or wheezing) Qty: 8.5 0RF insulin glargine [Lantus Solostar U-100 Insulin] 100 unit/mL (3 mL) insulin pen 6 unit subcut QPM Hold Instructions: Hypoglycemia pantoprazole [Protonix] 40 mg tablet,delayed release (DR/EC) 40 mg PO DAILY gabapentin 300 mg capsule 300 mg PO TID Rx Instructions: Take by mouth three times daily, TOTAL DOSE AT HS 400 MG. gabapentin 100 mg capsule 100 mg PO QPM Rx Instructions: TOTAL DOSE QPM 400 MG--Take with 300 MG CAP. diclofenac sodium [Voltaren Arthritis Pain] 1 % gel 2 g topical QID PRN (Reason: Pain) meclizine 12.5 mg tablet 12.5 mg PO TID PRN (Reason: dizziness) Qty: 20 0RF Referrals Referrals: Jennifer Martin CRNP [Primary Care Provider] -
--- NOTE | 2022-12-04 15:38 | History & Physical Report ---
Date of Service December 04, 2022 Assessment & Plan (1) Vertigo: Plan: Weakness, ambulatory dysfunction, vertigo. Hx BPPV Patient is with room spinning/dizziness which occurs even when laying still in bed and which has awoken her from sleep. This is different from the past, she has had BPPV with rotary nystagmus however her symptoms now occur even while laying still. DDx includes BPPV, will follow-up for stroke given increased risk. Patient has received MRIs since having a pacemaker placed, reports this is pacemaker safe. Interrogation pending. MRI brain ordered EKG without ischemic changes Chest x-ray normal No leukocytosis Patient with a elevated anion gap and bicarb of 18 in the setting of renal dysfunction TSH mildly low with normal free T4 COVID-negative CTAhead/neck without acute findings Patient does continue with vertigo and nausea which have not improved with meclizine MRI ordered given history of TIA for vertebrobasilar assessment. No hearing loss Troponin high-sensitivity is normal, no transaminitis, BSG 159 Clinically volume depleted, BUN/creatinine ratio 67.2. Admitting creatinine 0.64. 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 Follows outpatient with cardiology Continue telemetry due to weakness and presyncope, interrogation pending Asthma No maintenance inhalers, uses albuterol as needed Anxiety/depression Continue BuSpar 10 mg a.m., 5 mg p.m. Continue Effexor 150 mg daily Continue outpatient counseling on discharge DVT prophylaxis: Lovenox dose reduced for age/BMI Diet: Type II DM Disposition: Medical telemetry CODE STATUS: DNR/DNI (2) GERD with esophagitis: (3) DM type 2 with diabetic peripheral neuropathy: (4) HTN (hypertension): (5) SSS (sick sinus syndrome): (6) S/P cardiac pacemaker procedure: (7) CORINA (obstructive sleep apnea): (8) Tardive dyskinesia: History of Present Illness Primary Care Provider: MARGOTH Craig Patient was referred to the ER by her PCP on morning visit for worsening weakness with some shortness of breath. PCP noting that she is unable to care for herself and can no longer reliant on roommates, office of aging was contacted by PCP and patient was recommended for admission and case management consultation Patient seen at the bedside. She reports she generally does not eat very much and has a poor diet, has had minimal intake in the last couple of weeks. She has a history of "ear stones "which has caused "I spinning "when she has had a test being laid back in the past, but that was many years ago. Her current dizziness which got significantly worse yesterday and today feels similar and that the room spins, but happens even when she is lying perfectly still in bed. She has also felt more weak and discoordinated in both of her arms and has difficulty performing finger-nose testing. She has not had any chest pain, janel st pressure. Does not dose that she has had multiple TIAs without focal residual deficits, but is generally globally weak. She did take aspirin this morning. She does take atorvastatin. She does have dyskinesia related to past psychiatric medication treatment. She has not had any fevers or chills, she notes that her temperature tends to be a little bit lower at baseline around 96 is normal for her. She has had nausea with the room spinning, denies vomiting. Is constipated generally at baseline, no abdominal pain on admission. Denies neck pain. Denies numbness/tingling. Medical History: Reviewed Medications: Reviewed Surgical History: Reviewed Family history: Reviewed Allergies: Reviewed Social History: Denies tobacco, alcohol, substance use Code Status: DNR/DNI Allergies Allergy/AdvReac Type Severity Reaction Status Date / Time camphor [From Sarna Original] Allergy Intermediate Rash Verified 12/04/22 09:42 menthol [From Sarna Original] Allergy Intermediate Rash Verified 12/04/22 09:42 adhesive Allergy Mild TAPE Verified 12/04/22 09:42 aspirin [From Aggrenox] Allergy Unknown Unknown Verified 12/04/22 09:42 chlorpromazine Allergy Unknown CAN'T Verified 03/15/23 09:42 REMEMBER dipyridamole [From Aggrenox] Allergy Unknown Unknown Verified 12/04/22 09:42 latex Allergy Unknown Unknown Verified 12/04/22 09:42 loratadine Allergy Unknown Unknown Verified 12/04/22 09:42 prazosin Allergy Unknown CAN'T Verified 12/04/22 09:42 REMEMBER sulfamethoxazole [Bactrim] Allergy Unknown CAN'T Verified 12/04/22 09:42 REMEMBER trimethoprim [Bactrim] Allergy Unknown CAN'T Verified 12/04/22 09:42 REMEMBER cyclobenzaprine AdvReac Intermediate psych Verified 12/04/22 09:42 [From Flexeril] complications oxycodone AdvReac Intermediate ITCHING Verified 12/04/22 09:42 Home Medications Medication Instructions Recorded Confirmed Type albuterol sulfate 2.5 mg/3 mL 2.5 mg (3 mL) inhalation Q6H PRN 09/25/22 12/04/22 Rx (0.083 %) solution for nebulization shortness of breath or wheezing #180 mL albuterol sulfate 90 mcg/actuation 2 puff inhalation Q6H PRN 09/25/22 12/04/22 Rx aerosol inhaler (Proventil HFA) shortness of breath or wheezing #8.5 grams amino acids-protein hydrolysate 16 30 ml PO BID #5,760 mL 09/25/22 12/04/22 Rx gram-100 kcal/30 mL oral liquid (Liquacel) aspirin 81 mg tablet,delayed 81 mg PO DAILY #90 tabs 09/25/22 12/04/22 Rx release (Adult Low Dose Aspirin) budesonide-formoterol HFA 160 2 puff inhalation BID #10.2 grams 09/25/22 12/04/22 Rx mcg-4.5 mcg/actuation aerosol inhaler (Symbicort) buspirone 5 mg tablet See Rx Instructions PO .COMPLEX 09/25/22 12/04/22 Rx #90 tabs cholecalciferol (vitamin D3) 50 50 mcg PO DAILY #30 caps 09/25/22 12/04/22 Rx mcg (2,000 unit) capsule fluticasone propionate 50 2 spray intranasal DAILY #16 grams 09/25/22 12/04/22 Rx mcg/actuation nasal spray,suspension (Flonase Allergy Relief) metoclopramide HCl 5 mg tablet 5 mg PO TID PRN nausea and 09/25/22 12/04/22 Rx (Reglan) vomiting #30 tabs trolamine salicylate 10 % topical 1 applic topical DAILY PRN muscle 09/25/22 12/04/22 Rx cream pain #100 grams venlafaxine 150 mg 150 mg PO DAILY #90 caps 09/25/22 12/04/22 Rx capsule,extended release 24 hr empagliflozin 25 mg tablet 25 mg PO DAILY #90 tabs 10/03/22 12/04/22 Rx (Jardiance) pen needle, diabetic 32 gauge x #100 ea 10/03/22 12/04/22 Rx 532" (BD Ultra-Fine Shreya Pen Needle) insulin glargine 100 unit/mL (3 6 unit subcut QPM 10/25/22 12/04/22 History mL) subcutaneous pen (Lantus Solostar U-100 Insulin) blood sugar diagnostic (OneTouch #100 ea 10/30/22 12/04/22 Rx Ultra Test strips) diclofenac sodium 1 % topical gel 2 g topical QID PRN Pain 11/11/22 12/04/22 History (Voltaren Arthritis Pain) gabapentin 100 mg capsule 100 mg PO QPM 11/11/22 12/04/22 History gabapentin 300 mg capsule 300 mg PO TID 11/11/22 12/04/22 History pantoprazole 40 mg tablet,delayed 40 mg PO DAILY 11/11/22 12/04/22 History release (Protonix) blood-glucose meter #1 ea 11/13/22 12/04/22 Rx lisinopril 2.5 mg tablet 2.5 mg PO DAILY #30 tabs 11/13/22 12/04/22 Rx atorvastatin 40 mg tablet 40 mg PO DAILY #90 tabs 11/15/22 12/04/22 Rx blood sugar diagnostic (OneTouch #100 ea 11/18/22 12/04/22 Rx Verio test strips) [facility]anc[facility] ([facility] 11/18/22 12/04/22 Rx Lancets) meclizine 12.5 mg tablet 12.5 mg PO TID PRN dizziness #20 12/02/22 12/04/22 Rx tabs metoprolol tartrate 25 mg tablet 12.5 mg PO DAILY 12/04/22 12/04/22 History Past Med/Surg History Medical History Asthma, mild persistent DM type 2 with diabetic peripheral neuropathy Dyslipidemia GERD with esophagitis GERD and medium-sized hiatus hernia with associated Aravind's erosions (dx [address] Portillo) s/p lap Saji Fundoplication by Dr. Peralta at [facility] [place] of [place] HTN (hypertension) Iron deficiency anemia Major depressive disorder CORINA (obstructive sleep apnea) PTSD (post-traumatic stress disorder) RLS (restless legs syndrome) SSS (sick sinus syndrome) Tardive dyskinesia Vitamin D deficiency Surgical History Amputation toe H/O ovarian cystectomy Hammer toe History of appendectomy History of bladder surgery vaginal sling History of bunionectomy History of cardiac cath History of cataract surgery History of cholecystectomy History of colonoscopy History of esophagogastroduodenoscopy (EGD) History of hysterectomy History of knee replacement bilateral History of repair of hiatal hernia History of tonsillectomy Pacemaker S/P cardiac pacemaker procedure S/P cervical spinal fusion S/P repair of paraesophageal hernia Status post rotator cuff repair Family History Daughter Cervical cancer Father Gallbladder cancer Aunt Diabetes Brother Suicide Heart disease Mother Schizophrenia Suicide Social History Smoking Status: Never smoker Hx Alcohol Use: No Hx Substance Use: No Preferred Language: Israeli Feels Safe at Home: Yes Review of Systems Review of Systems: All systems reviewed & are unremarkable except as noted in HPI & below Physical Exam Physical Exam: General: A&Ox3. NAD. Cooperative. Appears weak/frail. HEENT: Atraumatic, normocephalic. Poor dentition, multiple missing teeth. Vision/hearing grossly intact. No hearing deficit. Pulm: CTAB A&P. -wheezes, -rales, -rhonchi. Symmetrical chest rise. No increased work of breathing. No respiratory distress. Cardiac: RRR, -mrg. Radial pulses intact and symmetrical. Abdominal: Nontender, nondistended, soft. BS present. CRANIAL NERVES: II: Pupils equal and reactive, no relative afferent pupillary defect, no VF cuts III, IV, : EOM intact, no gaze preference or deviation, no nystagmus. V: normal sensation in V1, V2, and V3 segments bilaterally VII: no asymmetry, no nasolabial fold flattening VIII: normal hearing to speech IX, X: normal palatal elevation, no uvular deviation XI: 5/5 head turn and 5/5 shoulder shrug bilaterally XII: midline tongue protrusion Patient with dyskinesia on heel/mcmillan and finger-nose testing. Is with dysmetria, worse than baseline per pt. Roll Capper strength/elbow flexion/extension 4 - /5, hip flexion 4 -/5, ankle dorsiflexion/plantarflexion 4/5 bilaterally Results & Data Results & Data Vital Signs (Past 12 Hours) Vital Signs Temp Pulse Resp BP Pulse Ox O2 Del Method 12/04/22 14:00 78 24 100 12/04/22 14:00 118/60 12/04/22 13:01 132/47 L 12/04/22 13:01 83 24 100 12/04/22 12:22 74 12/04/22 12:00 75 19 100 12/04/22 12:00 155/88 H 12/04/22 11:43 78 18 100 Room Air 12/04/22 10:50 36.6 C 77 26 H 138/74 98 Room Air PG Care Time/CCT Total # of Minutes Spent Total Time Spent with Patient: Total time spent is greater than 50% in coordination of care (as documented) at patient's floor/unit and/or counseling patient: Coding Level of Care Code 23778 INT INP/OBS CARE 3/75MIN Diagnoses Vertigo R42 GERD with esophagitis K21.00 DM type 2 with diabetic peripheral neuropathy E11.42 HTN (hypertension) I10 SSS (sick sinus syndrome) I49.5 S/P cardiac pacemaker procedure Z95.0 CORINA (obstructive sleep apnea) G47.33 Tardive dyskinesia G24.01
[2022-12-04 18:00] LABS: Appearance Urine Clear (Clear); Bilirubin Urine Negative (Negative); Blood Urine Negative (Negative); Color Urine Yellow; Glucose Urine UA 3+ (Negative); Ketones Urine 3+ (Negative); Leukocyte Esterase Urine Negative (Negative); Nitrite Urine Negative (Negative); Protein Urine Negative (Negative); Specific Gravity Urine > 1.045 (1.000-1.030); Urobilinogen Urine Negative (Negative)
--- NOTE | 2022-12-04 18:38 | XRay Report ---
KUB CLINICAL HISTORY: Nausea and vomiting. FINDINGS: 2 AP supine abdominal radiographs are compared to study dated 11/11/2022 and correlated with abdominal CT dated 10/14/2022. There is a nonobstructed abdominal bowel gas pattern. No evidence of i ntraperitoneal free air is seen on these supine images. Cholecystectomy clips are seen in the right u pper quadrant. Excreted IV contrast is noted within the renal collecting systems and bladder. Numerou s phleboliths are again seen in the pelvis. The skeletal structures are osteopenic and appear intact. Lumbosacral spondylosis is observed. The heart is enlarged. Pacemaker leads are in place. IMPRESSION: No acute abnormality is identified. See above. Electronically signed by: Carlos Gallo M.D. 12/04/2022 6:37 PM
[2022-12-04] MEDS ORDERED: POLYETHYLENE (MIRALAX) 17 GM PACK PO PRN (21:46)
[2022-12-04] MEDS ORDERED: MAGNESIUM HYDROXIDE SUSP 30 ML UDC PO PRN (21:46)
[2022-12-04] MEDS ORDERED: NORMOSOL-R 1,000 ML IV SCH (21:46)
[2022-12-04] MEDS: GABAPENTIN 100 MG CAP PO SCH (22:48)
[2022-12-04] MEDS: busPIRone 5 MG TAB PO SCH (22:49)
[2022-12-05] MEDS: ACETAMINOPHEN 325 MG TAB PO PRN (02:14)
[2022-12-05] MEDS: ONDANSETRON INJ 2 MG/ML 2 ML VIAL IV PRN ×3 (02:17→20:53)
[2022-12-05] MEDS ORDERED: MoRPHine SULFATE 2 MG/ML CARP IV ONE (04:15)
[2022-12-05 07:40] LABS: Basophils # (auto) 0.05 K/uL (0-0.2); Eosinophils # (auto) 0.16 K/uL (0-0.50); Eosinophils % (auto) 3.1 %; Hematocrit (blood only) 33.4 % (37.0-47.0); Immature Granulocytes # (auto) 0.01 K/uL (0.01-0.20); Immature Granulocytes % (auto) 0.2 %; Lymphocytes # (auto) 1.74 K/uL (1.2-3.4); Lymphocytes % (auto) 33.3 %; Mean Corpuscular Hemoglobin 28.4 pg (25.0-34.0); Mean Corpuscular Hgb Conc 32.9 g/dL (32.0-36.0); Mean Corpuscular Volume 86.3 fL (80.0-100.0); Mean Platelet Volume 9.3 fL (9.4-12.4); Monocytes # (auto) 0.61 K/uL (0.11-0.59); Monocytes % (auto) 11.7 %; Neutrophils # (auto) 2.66 K/uL (1.40-6.50); Neutrophils % (auto) 50.7 %; Platelet Count 259 K/uL (130-400); RDW Coefficient of Variation 12.8 % (11.5-14.5); RDW Standard Deviation 40.4 fL (36.4-46.3); Red Blood Count 3.87 M/uL (4.20-5.40); White Blood Count 5.23 K/ul (4.8-10.8)
[2022-12-05 07:58] LABS: BUN Creatinine Ratio 64.8 (10-20); Calcium 8.6 mg/dl (8.5-10.1); Creatinine Clr Calc Pharmacy 82.2 ml/min; Est GFR (African American) 109.3 ml/min; Est GFR (Non-African American) 94.3 ml/min; Potassium 3.8 mmol/L (3.5-5.1)
--- NOTE | 2022-12-05 10:44 | Magnetic Resonance Report ---
MR brain wo con HISTORY: 72 years-old Female ? vertebrobasilar cva acute dizziness with stroke like symptoms and hea dache COMPARISON: Head CT 12/04/2022 TECHNIQUE: Multiplanar multisequence MRI of the brain was obtained without the use of IV contrast FINDINGS: Partially empty sella. No restricted diffusion. No acute intracranial hemorrhage, midline shift, abno rmal extra axial collection, hydrocephalus or intracranial mass. No pathologic blooming artifact. Inv olutional changes with moderate T2/FLAIR hyperintense foci throughout the white matter. Cerebral venous sinuses and major arterial flow voids appear patent. Prior right-sided lens repair. T he skull, and soft tissues are unremarkable. Mastoid air cells and paranasal sinuses are generally cl ear. IMPRESSION: 1. No acute intracranial abnormality. 2. No acute or subacute infarct. 2. Involutional changes with moderate chronic microvascular ischemic disease. ACT 112: Negative or not required by law. The above report was generated using voice recognition software. It may contain grammatical, syntax o r spelling errors. Electronically signed by: Maykel Lainez M.D. 12/05/2022 10:41 AM
[2022-12-05] MEDS: ENOXAPARIN INJ 30 MG/0.3 ML SYR SQ SCH (10:45)
[2022-12-05] MEDS: ASPIRIN 81 MG ECTAB PO SCH ×2 (10:45→11:24)
[2022-12-05] MEDS: METOPROLOL TARTRATE 25 MG TAB PO SCH (10:45)
[2022-12-05] MEDS: ATORVASTATIN 40 MG TAB PO SCH (10:45)
[2022-12-05] MEDS: CHOLECALCIFEROL 1,000 UNITS 25 MCG TAB PO SCH ×2 (10:45→11:24)
[2022-12-05] MEDS: VENLAFAXINE HCL XR 150 MG CAPXR PO SCH ×2 (10:46→11:24)
[2022-12-05] MEDS: lisinopril 2.5 MG TAB PO SCH (10:46)
[2022-12-05] MEDS: PANTOprazole 40 MG TAB PO SCH (10:46)
[2022-12-05] MEDS: busPIRone 5 MG TAB PO SCH ×3 (10:46→20:25)
[2022-12-05] MEDS: FLUTICASONE/VILANTEROL 200/25MCG 14 PUFFS/INHALER INH SCH (10:47)
[2022-12-05] MEDS: MECLIZINE 12.5 MG TAB PO PRN (15:22)
--- NOTE | 2022-12-05 16:50 | Hospitalist Progress Note ---
Date of Service December 05, 2022 Assessment & Plan (1) Vertigo: Plan: Weakness, ambulatory dysfunction, vertigo. 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 Consult PT/OT Consult social work GERD Continue PPI Type II DM with peripheral neuropathy Last A1c 10.6 in September, poorly controlled Convert to basal bolus insulin while inpatient Patient may have diabetic gastroparesis due to poorly controlled diabetes, has a history of constipation Bowel regimen Glucose checks AC/at bedtime Goal BSG 131375 Weight-based basal bolus: Lantus 6 units twice daily, CF 70, carb ratio 23 Hypertension Metoprolol 12.5 mg twice daily Hyperlipidemia Atorvastatin daily, continue History of prior CVA Continue daily aspirin Sick sinus syndrome S/p dual-chamber pacemaker placement 01/2022. Follows outpatient with cardiology Continue telemetry due to weakness and presyncope, interrogation pending Asthma No maintenance inhalers, uses albuterol as needed Anxiety/depression Continue BuSpar 10 mg a.m., 5 mg p.m. Continue Effexor 150 mg daily Continue outpatient counseling on discharge DVT prophylaxis: Lovenox dose reduced for age/BMI Diet: Type II DM Disposition: Medical telemetry CODE STATUS: DNR/DNI (2) GERD with esophagitis: (3) DM type 2 with diabetic peripheral neuropathy: (4) HTN (hypertension): (5) SSS (sick sinus syndrome): (6) S/P cardiac pacemaker procedure: (7) CORINA (obstructive sleep apnea): (8) Tardive dyskinesia: Admission and Anticipated Discharge Date Admission Date: December 04, 2022 Subjective Patient complains of ongoing dizziness. Denies chest pain or shortness of breath. Review of Systems Review of Systems: All systems reviewed & are unremarkable except as noted in Subjective Physical Exam Physical Exam: General: Awake, conversant, tardive dyskinesia noted Heart: S1, S2/regular rate and rhythm, no murmur rubs or gallops Lungs: Clear to auscultation bilaterally. Normal effort Abdomen: Soft/nontender/nondistended. No hepatosplenomegaly Extremities: No clubbing/cyanosis. No edema Behavior: Appropriate, cooperative Results & Data Results & Data Vital Signs (Past 12 Hours) Vital Signs Temp Pulse Pulse Resp BP Pulse Ox O2 Del Method 12/05/22 16:06 63 12/05/22 15:36 36.5 C 63 18 97/60 L 96 Room Air 12/05/22 11:35 36.6 C 65 16 105/64 99 Room Air 12/05/22 07:33 36.5 C 69 14 113/70 94 Room Air 12/05/22 06:07 81 Laboratory Results Abnormal lab results 12/04/22 12/05/22 12/05/22 Range/Units 17:31 06:53 06:53 RBC 3.87 L (4.20-5.40) M/uL Hgb 11.0 L (12.0-16.0) g/dl Hct 33.4 L (37.0-47.0) % MPV 9.3 L (9.4-12.4) fL [place] # (Auto) 0.61 H (0.11-0.59) K/uL BUN 35 H (6-23) mg/dl Creatinine 0.54 L (0.6-1.2) mg/dl BUN/Creatinine Ratio 64.8 H (10-20) POC Glucose (70-99) mg/dl Ur Specific [place] > 1.045 H (1.000-1.030) Urine Glucose (UA) 3+ H (Negative) Urine Ketones 3+ H (Negative) 12/05/22 Range/Units 11:25 RBC (4.20-5.40) M/uL Hgb (12.0-16.0) g/dl Hct (37.0-47.0) % MPV (9.4-12.4) fL [place] # (Auto) (0.11-0.59) K/uL BUN (6-23) mg/dl Creatinine (0.6-1.2) mg/dl BUN/Creatinine Ratio (10-20) POC Glucose 102 H (70-99) mg/dl Ur Specific [place] (1.000-1.030) Urine Glucose (UA) (Negative) Urine Ketones (Negative) Diagnostic Findings KUB X-Ray 12/04/22 14:51 KUB CLINICAL HISTORY: Nausea and vomiting. FINDINGS: 2 AP supine abdominal radiographs are compared to study dated 11/11/2022 and correlated with abdominal CT dated 10/14/2022. There is a nonobstructed abdominal bowel gas pattern. No evidence of intraperitoneal free air is seen on these supine images. Cholecystectomy clips are seen in the right upper quadrant. Excreted IV contrast is noted within the renal collecting systems and bladder. Numerous phleboliths are again seen in the pelvis. The skeletal structures are osteopenic and appear intact. Lumbosacral spondylosis is observed. The heart is enlarged. Pacemaker leads are in place. IMPRESSION: No acute abnormality is identified. See above. Electronically signed by: Carlos Gallo M.D. 12/04/2022 6:37 PM Brain MRI 12/05/22 00:00 MR brain wo con HISTORY: 72 years-old Female ? vertebrobasilar cva acute dizziness with stroke like symptoms and headache COMPARISON: Head CT 12/04/2022 TECHNIQUE: Multiplanar multisequence MRI of the brain was obtained without the use of IV contrast FINDINGS: Partially empty sella. No restricted diffusion. No acute intracranial hemorrhage, midline shift, abnormal extra axial collection, hydrocephalus or intracranial mass. No pathologic blooming artifact. Involutional changes with moderate T2/FLAIR hyperintense foci throughout the white matter. Cerebral venous sinuses and major arterial flow voids appear patent. Prior right-sided lens repair. The skull, and soft tissues are unremarkable. Mastoid air cells and paranasal sinuses are generally clear. IMPRESSION: 1. No acute intracranial abnormality. 2. No acute or subacute infarct. 2. Involutional changes with moderate chronic microvascular ischemic disease. ACT 112: Negative or not required by law. The above report was generated using voice recognition software. It may contain grammatical, syntax or spelling errors. Electronically signed by: Maykel Lainez M.D. 12/05/2022 10:41 AM PG Care Time/CCT Total # of Minutes Spent Total Time Spent with Patient: Total time spent is greater than 50% in coordination of care (as documented) at patient's floor/unit and/or counseling patient: Coding Level of Care Code 70049 SUB INP/OBS CARE 2/35MIN Diagnoses Vertigo R42 GERD with esophagitis K21.00 DM type 2 with diabetic peripheral neuropathy E11.42 HTN (hypertension) I10 SSS (sick sinus syndrome) I49.5 S/P cardiac pacemaker procedure Z95.0 CORINA (obstructive sleep apnea) G47.33 Tardive dyskinesia G24.01
--- NOTE | 2022-12-05 18:44 | XCELERA ---
[id number]
[2022-12-05] MEDS: GABAPENTIN 100 MG CAP PO SCH (20:25)
[2022-12-06] MEDS: lisinopril 2.5 MG TAB PO SCH (08:56)
[2022-12-06] MEDS: VENLAFAXINE HCL XR 150 MG CAPXR PO SCH (08:56)
[2022-12-06] MEDS: ASPIRIN 81 MG ECTAB PO SCH (08:56)
[2022-12-06] MEDS: CHOLECALCIFEROL 1,000 UNITS 25 MCG TAB PO SCH (08:56)
[2022-12-06] MEDS: ATORVASTATIN 40 MG TAB PO SCH (08:56)
[2022-12-06] MEDS: busPIRone 5 MG TAB PO SCH ×2 (08:56→21:19)
[2022-12-06] MEDS: ENOXAPARIN INJ 30 MG/0.3 ML SYR SQ SCH (08:57)
[2022-12-06] MEDS: METOPROLOL TARTRATE 25 MG TAB PO SCH (08:57)
[2022-12-06] MEDS: PANTOprazole 40 MG TAB PO SCH (08:57)
[2022-12-06] MEDS: FLUTICASONE/VILANTEROL 200/25MCG 14 PUFFS/INHALER INH SCH (08:57)
[2022-12-06] MEDS: ACETAMINOPHEN 325 MG TAB PO PRN ×3 (10:54→23:05)
--- NOTE | 2022-12-06 15:23 | Hospitalist Progress Note ---
Date of Service December 06, 2022 Assessment & Plan (1) Vertigo: Plan: Weakness, ambulatory dysfunction, vertigo. 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 Consult PT/OT Consult social work Consult case folder to see if PT/OT can help with the vertigo while inpatient GERD Continue PPI Type II DM with peripheral neuropathy Last A1c 10.6 in September, poorly controlled Convert to basal bolus insulin while inpatient Patient may have diabetic gastroparesis due to poorly controlled diabetes, has a history of constipation Bowel regimen Glucose checks AC/at bedtime Goal BSG 105204 Weight-based basal bolus: Lantus 6 units twice daily, CF 70, carb ratio 23 Hypertension Metoprolol 12.5 mg twice daily Hyperlipidemia Atorvastatin daily, continue History of prior CVA Continue daily aspirin Sick sinus syndrome S/p dual-chamber pacemaker placement 01/2022. Follows outpatient with cardiology Continue telemetry due to weakness and presyncope, interrogation pending Asthma No maintenance inhalers, uses albuterol as needed Anxiety/depression Continue BuSpar 10 mg a.m., 5 mg p.m. Continue Effexor 150 mg daily Continue outpatient counseling on discharge DVT prophylaxis: Lovenox dose reduced for age/BMI Diet: Type II DM Disposition: Medical telemetry CODE STATUS: DNR/DNI (2) GERD with esophagitis: (3) DM type 2 with diabetic peripheral neuropathy: (4) HTN (hypertension): (5) SSS (sick sinus syndrome): (6) S/P cardiac pacemaker procedure: (7) CORINA (obstructive sleep apnea): (8) Tardive dyskinesia: Admission and Anticipated Discharge Date Admission Date: December 04, 2022 Subjective Patient complains of ongoing vertigo earlier this morning. Patient complains of nausea associated with the vertigo Review of Systems Review of Systems: All systems reviewed & are unremarkable except as noted in Subjective Physical Exam Physical Exam: General: Awake, conversant, tardive dyskinesia noted Heart: S1, S2/regular rate and rhythm, no murmur rubs or gallops Lungs: Clear to auscultation bilaterally. Normal effort Abdomen: Soft/nontender/nondistended. No hepatosplenomegaly Extremities: No clubbing/cyanosis. No edema Behavior: Appropriate, cooperative Results & Data Results & Data Vital Signs (Past 12 Hours) Vital Signs Temp Pulse Pulse Resp BP Pulse Ox O2 Del Method 12/06/22 15:09 36.7 C 61 18 141/90 H 96 Room Air 12/06/22 11:17 36.7 C 60 20 124/76 95 Room Air 12/06/22 08:14 65 12/06/22 08:02 60 20 111/66 96 Room Air PG Care Time/CCT Total # of Minutes Spent Total Time Spent with Patient: Total time spent is greater than 50% in coordination of care (as documented) at patient's floor/unit and/or counseling patient: Coding Level of Care Code 14359 SUB INP/OBS CARE 2/35MIN Diagnoses Vertigo R42 GERD with esophagitis K21.00 DM type 2 with diabetic peripheral neuropathy E11.42 HTN (hypertension) I10 SSS (sick sinus syndrome) I49.5 S/P cardiac pacemaker procedure Z95.0 CORINA (obstructive sleep apnea) G47.33 Tardive dyskinesia G24.01
[2022-12-06] MEDS: POLYETHYLENE (MIRALAX) 17 GM PACK PO SCH (15:47)
[2022-12-06] MEDS: GABAPENTIN 100 MG CAP PO SCH (21:20)
--- NOTE | 2022-12-06 23:30 | Electrocardiogram Report ---
Test Reason : Blood Pressure : / mmHG Vent. Rate : 073 BPM Atrial Rate : 073 BPM P-R Int : 136 ms QRS Dur : 122 ms QT Int : 424 ms P-R-T Axes : 020 055 037 degrees QTc Int : 467 ms Normal sinus rhythm Right bundle branch block Abnormal ECG When compared with ECG of 02-DEC-2022 20:00, T wave inversion no longer evident in Anterior leads Confirmed by Eddie Mcgowan ([id number]) on 12/06/2022 11:29:46 PM Referred By: Confirmed By:Eddie Mcgowan
[2022-12-07] MEDS ORDERED: MELATONIN 3 MG TAB PO PRN (00:14)
[2022-12-07] MEDS ORDERED: MoRPHine SULFATE 2 MG/ML CARP IV STA ×2 (01:31→07:35)
[2022-12-07 07:16] LABS: Creatinine Clr Calc Pharmacy 82.2 ml/min; Est GFR (African American) 109.3 ml/min; Est GFR (Non-African American) 94.3 ml/min
[2022-12-07] MEDS: PANTOprazole 40 MG TAB PO SCH (08:18)
[2022-12-07] MEDS: CHOLECALCIFEROL 1,000 UNITS 25 MCG TAB PO SCH (08:18)
[2022-12-07] MEDS: METOPROLOL TARTRATE 25 MG TAB PO SCH (08:18)
[2022-12-07] MEDS: ASPIRIN 81 MG ECTAB PO SCH (08:18)
[2022-12-07] MEDS: busPIRone 5 MG TAB PO SCH ×2 (08:18→21:26)
[2022-12-07] MEDS: VENLAFAXINE HCL XR 150 MG CAPXR PO SCH (08:18)
[2022-12-07] MEDS: lisinopril 2.5 MG TAB PO SCH (08:18)
[2022-12-07] MEDS: ATORVASTATIN 40 MG TAB PO SCH (08:18)
[2022-12-07] MEDS: POLYETHYLENE (MIRALAX) 17 GM PACK PO SCH (08:19)
[2022-12-07] MEDS: ENOXAPARIN INJ 30 MG/0.3 ML SYR SQ SCH (08:19)
[2022-12-07] MEDS: FLUTICASONE/VILANTEROL 200/25MCG 14 PUFFS/INHALER INH SCH (08:19)
[2022-12-07] MEDS: GABAPENTIN 300 MG CAP PO SCH ×3 (09:59→21:26)
--- NOTE | 2022-12-07 14:11 | Hospitalist Progress Note ---
Date of Service December 07, 2022 Assessment & Plan (1) Vertigo: Plan: Weakness, ambulatory dysfunction, vertigo. 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 Consult PT/OT Consult social work Consult cyanide case hardener to see if PT/OT can help with the vertigo while inpatient Patient agreed with rehab placement, Awaiting placement Generalized pain Patient has a history of restless leg syndrome and diabetic neuropathy for which she is on gabapentin at home Gabapentin was being held since admission Patient has been complaining of generalized pain all over, requiring morphine Resume gabapentin GERD Continue PPI Type II DM with peripheral neuropathy Last A1c 10.6 in September, poorly controlled Convert to basal bolus insulin while inpatient Patient may have diabetic gastroparesis due to poorly controlled diabetes, has a history of constipation Bowel regimen Glucose checks AC/at bedtime Goal BSG 046982 Weight-based basal bolus: Lantus 6 units twice daily, CF 70, carb ratio 23 Hypertension Metoprolol 12.5 mg twice daily Hyperlipidemia Atorvastatin daily, continue History of prior CVA Continue daily aspirin Sick sinus syndrome S/p dual-chamber pacemaker placement 01/2022. Follows outpatient with cardiology Continue telemetry due to weakness and presyncope, interrogation pending Asthma No maintenance inhalers, uses albuterol as needed Anxiety/depression Continue BuSpar 10 mg a.m., 5 mg p.m. Continue Effexor 150 mg daily Continue outpatient counseling on discharge DVT prophylaxis: Lovenox dose reduced for age/BMI Diet: Type II DM CODE STATUS: DNR/DNI (2) GERD with esophagitis: (3) DM type 2 with diabetic peripheral neuropathy: (4) HTN (hypertension): (5) SSS (sick sinus syndrome): (6) S/P cardiac pacemaker procedure: (7) CORINA (obstructive sleep apnea): (8) Tardive dyskinesia: Admission and Anticipated Discharge Date Admission Date: December 06, 2022 Subjective Overnight, patient had severe generalized pain all over her body, she was given morphine with good response. Noted that she takes gabapentin 300 mg each in the morning and afternoon and 400 mg at night. Her gabapentin was being held during the hospital stay. Review of Systems Review of Systems: All systems reviewed & are unremarkable except as noted in Subjective Physical Exam Physical Exam: General: Awake, conversant, tardive dyskinesia noted Heart: S1, S2/regular rate and rhythm, no murmur rubs or gallops Lungs: Clear to auscultation bilaterally. Normal effort Abdomen: Soft/nontender/nondistended. No hepatosplenomegaly Extremities: No clubbing/cyanosis. No edema Behavior: Appropriate, cooperative Results & Data Results & Data Vital Signs (Past 12 Hours) Vital Signs Temp Pulse Resp BP BP Pulse Ox O2 Del Method 12/07/22 07:44 36.5 C 71 16 112/64 99 Room Air 12/07/22 02:07 36.4 C L 61 153/69 H 95 Room Air Laboratory Results Abnormal lab results 12/06/22 12/06/22 12/06/22 Range/Units 16:33 16:34 16:35 Creatinine (0.6-1.2) mg/dl POC Glucose 302 H* 294 H 305 H* (70-99) mg/dl 12/06/22 12/07/22 12/07/22 Range/Units 20:13 06:02 07:28 Creatinine 0.54 L (0.6-1.2) mg/dl POC Glucose 177 H 115 H (70-99) mg/dl 12/07/22 Range/Units 11:42 Creatinine (0.6-1.2) mg/dl POC Glucose 150 H (70-99) mg/dl PG Care Time/CCT Total # of Minutes Spent Total Time Spent with Patient: Total time spent is greater than 50% in coordination of care (as documented) at patient's floor/unit and/or counseling patient: Coding Level of Care Code 50768 SUB INP/OBS CARE 2/35MIN Diagnoses Vertigo R42 GERD with esophagitis K21.00 DM type 2 with diabetic peripheral neuropathy E11.42 HTN (hypertension) I10 SSS (sick sinus syndrome) I49.5 S/P cardiac pacemaker procedure Z95.0 CORINA (obstructive sleep apnea) G47.33 Tardive dyskinesia G24.01
[2022-12-07] MEDS ORDERED: METOCLOPRAMIDE HCL 5 MG TABLET PO PRN (14:12)
[2022-12-07] MEDS: INSULIN ASPART PER UNIT CHARGE SC SCH ×2 (17:45→21:24)
[2022-12-07] MEDS: ACETAMINOPHEN 325 MG TAB PO PRN (19:32)
[2022-12-07] MEDS: LANTUS PER UNIT CHARGE SQ SCH (21:23)
[2022-12-07] MEDS: GABAPENTIN 100 MG CAP PO SCH (21:26)
[2022-12-08] MEDS: ACETAMINOPHEN 325 MG TAB PO PRN ×2 (08:06→21:32)
[2022-12-08] MEDS: POLYETHYLENE (MIRALAX) 17 GM PACK PO SCH (08:15)
[2022-12-08] MEDS: ASPIRIN 81 MG ECTAB PO SCH (08:52)
[2022-12-08] MEDS: ATORVASTATIN 40 MG TAB PO SCH (08:53)
[2022-12-08] MEDS: busPIRone 5 MG TAB PO SCH ×2 (08:54→21:27)
[2022-12-08] MEDS: CHOLECALCIFEROL 1,000 UNITS 25 MCG TAB PO SCH (08:55)
[2022-12-08] MEDS: lisinopril 2.5 MG TAB PO SCH (08:56)
[2022-12-08] MEDS: GABAPENTIN 300 MG CAP PO SCH ×3 (08:56→21:27)
[2022-12-08] MEDS: METOPROLOL TARTRATE 25 MG TAB PO SCH (08:57)
[2022-12-08] MEDS: PANTOprazole 40 MG TAB PO SCH (08:59)
[2022-12-08] MEDS: VENLAFAXINE HCL XR 150 MG CAPXR PO SCH (09:00)
[2022-12-08] MEDS: ENOXAPARIN INJ 30 MG/0.3 ML SYR SQ SCH (09:15)
[2022-12-08] MEDS: FLUTICASONE/VILANTEROL 200/25MCG 14 PUFFS/INHALER INH SCH (09:21)
[2022-12-08] MEDS: LANTUS PER UNIT CHARGE SQ SCH ×2 (09:32→21:26)
[2022-12-08] MEDS: INSULIN ASPART PER UNIT CHARGE SC SCH ×4 (09:33→21:49)
--- NOTE | 2022-12-08 13:31 | Hospitalist Progress Note ---
Date of Service December 08, 2022 Assessment & Plan (1) Vertigo: Plan: Weakness, ambulatory dysfunction, vertigo. 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 Consult PT/OT Consult social work Consult manager case management to see if PT/OT can help with the vertigo while inpatient Patient agreed with rehab placement, Awaiting placement Generalized pain Patient has a history of restless leg syndrome and diabetic neuropathy for which she is on gabapentin at home Gabapentin was being held since admission Patient has been complaining of generalized pain all over, which could be related to gabapentin withdrawal Resumed gabapentin Dysphagia Patient has trouble swallowing Ordered a pured diet GERD Continue PPI Type II DM with peripheral neuropathy Last A1c 10.6 in September, poorly controlled Convert to basal bolus insulin while inpatient Patient may have diabetic gastroparesis due to poorly controlled diabetes, has a history of constipation Bowel regimen Glucose checks AC/at bedtime Goal BSG 137579 Weight-based basal bolus: Lantus 6 units twice daily, CF 70, carb ratio 23 Hypertension Metoprolol 12.5 mg twice daily Hyperlipidemia Atorvastatin daily, continue History of prior CVA Continue daily aspirin Sick sinus syndrome S/p dual-chamber pacemaker placement 01/2022. Follows outpatient with cardiology Continue telemetry due to weakness and presyncope, interrogation pending Asthma No maintenance inhalers, uses albuterol as needed Anxiety/depression Continue BuSpar 10 mg a.m., 5 mg p.m. Continue Effexor 150 mg daily Continue outpatient counseling on discharge DVT prophylaxis: Lovenox dose reduced for age/BMI Diet: Type II DM pured (2) GERD with esophagitis: (3) DM type 2 with diabetic peripheral neuropathy: (4) HTN (hypertension): (5) SSS (sick sinus syndrome): (6) S/P cardiac pacemaker procedure: (7) CORINA (obstructive sleep apnea): (8) Tardive dyskinesia: Admission and Anticipated Discharge Date Admission Date: December 06, 2022 Subjective Patient complains of aches and pains all over. Daughter in the room states that her pain is worse whenever it is "rainy and cloudy outside". The patient states that she was diagnosed with schizophrenia many years ago and was started on antipsychotic medication. She is no more on that medication but it has left her with a tardive dyskinesia. Patient says that she always has trouble swallowing anything other than a pured diet. Review of Systems Review of Systems: All systems reviewed & are unremarkable except as noted in Subjective Physical Exam Physical Exam: General: Awake, conversant, tardive dyskinesia noted Heart: S1, S2/regular rate and rhythm, no murmur rubs or gallops Lungs: Clear to auscultation bilaterally. Normal effort Abdomen: Soft/nontender/nondistended. No hepatosplenomegaly Extremities: No clubbing/cyanosis. No edema Behavior: Appropriate, cooperative Results & Data Results & Data Vital Signs (Past 12 Hours) Vital Signs Temp Pulse Pulse Resp BP BP Pulse Ox 12/08/22 11:50 36.4 C L 60 20 101/60 97 12/08/22 07:30 36.4 C L 63 16 112/71 99 12/08/22 07:04 36.5 C 69 18 116/70 100 O2 Del Method 12/08/22 11:50 Room Air 12/08/22 07:30 Room Air 12/08/22 07:04 Room Air Laboratory Results Abnormal lab results 12/07/22 12/07/22 12/08/22 Range/Units 17:01 21:12 11:59 POC Glucose 127 H 104 H 204 H (70-99) mg/dl PG Care Time/CCT Total # of Minutes Spent Total Time Spent with Patient: Total time spent is greater than 50% in coordination of care (as documented) at patient's floor/unit and/or counseling patient: Coding Level of Care Code 75023 SUB INP/OBS CARE 2/35MIN Diagnoses Vertigo R42 GERD with esophagitis K21.00 DM type 2 with diabetic peripheral neuropathy E11.42 HTN (hypertension) I10 SSS (sick sinus syndrome) I49.5 S/P cardiac pacemaker procedure Z95.0 CORINA (obstructive sleep apnea) G47.33 Tardive dyskinesia G24.01
[2022-12-08] MEDS ORDERED: bisacodyL 10 MG SUPP PR STA (13:38)
[2022-12-08] MEDS: DOCUSATE SODIUM/SENNA 50/8.6MG TAB PO SCH (14:57)
[2022-12-08] MEDS: GABAPENTIN 100 MG CAP PO SCH (21:27)
[2022-12-09] MEDS: METOPROLOL TARTRATE 25 MG TAB PO SCH (07:58)
[2022-12-09] MEDS: POLYETHYLENE (MIRALAX) 17 GM PACK PO SCH (08:03)
[2022-12-09] MEDS: VENLAFAXINE HCL XR 150 MG CAPXR PO SCH (08:05)
[2022-12-09] MEDS: lisinopril 2.5 MG TAB PO SCH (08:06)
[2022-12-09] MEDS: PANTOprazole 40 MG TAB PO SCH (08:06)
[2022-12-09] MEDS: GABAPENTIN 300 MG CAP PO SCH ×3 (08:07→20:53)
[2022-12-09] MEDS: DOCUSATE SODIUM/SENNA 50/8.6MG TAB PO SCH (08:08)
[2022-12-09] MEDS: FLUTICASONE/VILANTEROL 200/25MCG 14 PUFFS/INHALER INH SCH (08:08)
[2022-12-09] MEDS: CHOLECALCIFEROL 1,000 UNITS 25 MCG TAB PO SCH (08:09)
[2022-12-09] MEDS: busPIRone 5 MG TAB PO SCH ×2 (08:10→20:53)
[2022-12-09] MEDS: ASPIRIN 81 MG ECTAB PO SCH (08:11)
[2022-12-09] MEDS: ATORVASTATIN 40 MG TAB PO SCH (08:11)
[2022-12-09] MEDS: ENOXAPARIN INJ 30 MG/0.3 ML SYR SQ SCH (08:22)
[2022-12-09] MEDS: INSULIN ASPART PER UNIT CHARGE SC SCH ×4 (09:06→20:57)
[2022-12-09] MEDS: LANTUS PER UNIT CHARGE SQ SCH ×2 (09:13→20:54)
--- NOTE | 2022-12-09 10:40 | Fluoroscopy Report ---
FL video swallow CLINICAL HISTORY: 72 years-old Female with solid food and pill dysphagia. TECHNIQUE: Video fluoroscopic evaluation of swallowing was performed in the AP and lateral projection s by the speech pathology staff. The patient is fed thin liquid, mildly thick, pudding and cracker wi th paste consistencies. FLUOROSCOPY TIME: 2.9 minutes. 1102 images were submitted. 37.19 mGy Air Kerma COMPARISON STUDY: None. FINDINGS: Laryngeal penetration with thin liquid barium and trace aspiration with mildly thick liquid . No aspiration with additional consistencies. Decreased pharyngeal constriction with epiglottic inve rsion. Study is motion degraded. Extensive cervical spinal fusion hardware. IMPRESSION: 1. Aspiration as above. 2. Please see the speech pathologist report for detailed findings and recommendations. ACT 112: Negative or not required by law. Electronically signed by: Maykel Lainez M.D. 12/09/2022 10:26 AM
--- NOTE | 2022-12-09 15:57 | Hospitalist Progress Note ---
Date of Service December 09, 2022 Assessment & Plan (1) Vertigo: Plan: Weakness, ambulatory dysfunction, vertigo. 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 Consult PT/OT Consult social work Consult outpatient case manager Patient agreed with rehab placement, Awaiting placement Generalized pain Patient has a history of restless leg syndrome and diabetic neuropathy for which she is on gabapentin at home Gabapentin was being held since admission Patient has been complaining of generalized pain all over, which could be related to gabapentin withdrawal Resumed gabapentin Dysphagia Patient has trouble swallowing Ordered a pured diet Video swallow test results reviewed GERD Continue PPI Type II DM with peripheral neuropathy Last A1c 10.6 in September, poorly controlled Convert to basal bolus insulin while inpatient Patient may have diabetic gastroparesis due to poorly controlled diabetes, has a history of constipation Bowel regimen Glucose checks AC/at bedtime Goal BSG 969715 Weight-based basal bolus: Lantus 6 units twice daily, CF 70, carb ratio 23 Hypertension Metoprolol 12.5 mg twice daily Hyperlipidemia Atorvastatin daily, continue History of prior CVA Continue daily aspirin Sick sinus syndrome S/p dual-chamber pacemaker placement 01/2022. Follows outpatient with cardiology Continue telemetry due to weakness and presyncope, interrogation pending Asthma No maintenance inhalers, uses albuterol as needed Anxiety/depression Continue BuSpar 10 mg a.m., 5 mg p.m. Continue Effexor 150 mg daily Continue outpatient counseling on discharge DVT prophylaxis: Lovenox dose reduced for age/BMI Diet: Type II DM pured Code: Patient confirmed DNR/DNI (2) GERD with esophagitis: (3) DM type 2 with diabetic peripheral neuropathy: (4) HTN (hypertension): (5) SSS (sick sinus syndrome): (6) S/P cardiac pacemaker procedure: (7) CORINA (obstructive sleep apnea): (8) Tardive dyskinesia: Admission and Anticipated Discharge Date Admission Date: December 06, 2022 Subjective Patient says that she feels much better since she had a bowel movement. She still has episodes of vertigo. Review of Systems Review of Systems: All systems reviewed & are unremarkable except as noted in Subjective Physical Exam Physical Exam: General: Awake, conversant, tardive dyskinesia noted Heart: S1, S2/regular rate and rhythm, no murmur rubs or gallops Lungs: Clear to auscultation bilaterally. Normal effort Abdomen: Soft/nontender/nondistended. No hepatosplenomegaly Extremities: No clubbing/cyanosis. No edema Behavior: Appropriate, cooperative Results & Data Results & Data Vital Signs (Past 12 Hours) Vital Signs Temp Pulse Resp BP BP Pulse Ox O2 Del Method 12/09/22 15:31 36.6 C 80 16 142/71 H 95 Room Air 12/09/22 07:45 36.4 C L 66 15 110/72 97 Room Air Laboratory Results Abnormal lab results 12/08/22 12/09/22 Range/Units 20:33 11:51 POC Glucose 111 H 126 H (70-99) mg/dl Diagnostic Findings Videofluoroscopic Swallow 12/09/22 13:00 FL video swallow CLINICAL HISTORY: 72 years-old Female with solid food and pill dysphagia. TECHNIQUE: Video fluoroscopic evaluation of swallowing was performed in the AP and lateral projections by the speech pathology staff. The patient is fed thin liquid, mildly thick, pudding and cracker with paste consistencies. FLUOROSCOPY TIME: 2.9 minutes. 1102 images were submitted. 37.19 mGy Air Kerma COMPARISON STUDY: None. FINDINGS: Laryngeal penetration with thin liquid barium and trace aspiration wi th mildly thick liquid. No aspiration with additional consistencies. Decreased pharyngeal constriction with epiglottic inversion. Study is motion degraded. Extensive cervical spinal fusion hardware. IMPRESSION: 1. Aspiration as above. 2. Please see the speech pathologist report for detailed findings and recommendations. ACT 112: Negative or not required by law. Electronically signed by: Maykel Lainez M.D. 12/09/2022 10:26 AM PG Care Time/CCT Total # of Minutes Spent Total Time Spent with Patient: Total time spent is greater than 50% in coordination of care (as documented) at patient's floor/unit and/or counseling patient: Coding Level of Care Code 35841 SUB INP/OBS CARE 1/25MIN Diagnoses Vertigo R42 GERD with esophagitis K21.00 DM type 2 with diabetic peripheral neuropathy E11.42 HTN (hypertension) I10 SSS (sick sinus syndrome) I49.5 S/P cardiac pacemaker procedure Z95.0 CORINA (obstructive sleep apnea) G47.33 Tardive dyskinesia G24.01
[2022-12-09] MEDS: ACETAMINOPHEN 325 MG TAB PO PRN (20:52)
[2022-12-09] MEDS: GABAPENTIN 100 MG CAP PO SCH (20:53)
[2022-12-10 06:52] LABS: Creatinine Clr Calc Pharmacy 75.2 ml/min; Est GFR (African American) 106.1 ml/min; Est GFR (Non-African American) 91.6 ml/min
[2022-12-10] MEDS: INSULIN ASPART PER UNIT CHARGE SC SCH ×4 (08:25→20:51)
[2022-12-10] MEDS ORDERED: GLUCOSE 40% GEL 15 GM TUBE PO PRN (08:45)
[2022-12-10] MEDS ORDERED: GLUCOSE 10 TAB/TUBE PO PRN (08:45)
[2022-12-10] MEDS ORDERED: DEXTROSE 50% 50 ML SYRINGE IV PRN (08:45)
[2022-12-10] MEDS ORDERED: CARBOHYDRATES FOR HYPOGLYCEMIA PO PRN (08:45)
[2022-12-10] MEDS ORDERED: GLUCAGON FOR INJ 1 MG VIAL IM PRN (08:45)
[2022-12-10] MEDS: CHOLECALCIFEROL 1,000 UNITS 25 MCG TAB PO SCH (09:33)
[2022-12-10] MEDS: GABAPENTIN 300 MG CAP PO SCH ×3 (09:33→20:52)
[2022-12-10] MEDS: busPIRone 5 MG TAB PO SCH ×2 (09:34→20:52)
[2022-12-10] MEDS: PANTOprazole 40 MG TAB PO SCH (09:34)
[2022-12-10] MEDS: METOPROLOL TARTRATE 25 MG TAB PO SCH (09:34)
[2022-12-10] MEDS: lisinopril 2.5 MG TAB PO SCH (09:34)
[2022-12-10] MEDS: DOCUSATE SODIUM/SENNA 50/8.6MG TAB PO SCH (09:34)
[2022-12-10] MEDS: ASPIRIN 81 MG ECTAB PO SCH (09:34)
[2022-12-10] MEDS: ENOXAPARIN INJ 30 MG/0.3 ML SYR SQ SCH (09:35)
[2022-12-10] MEDS: VENLAFAXINE HCL XR 150 MG CAPXR PO SCH (09:35)
[2022-12-10] MEDS: ATORVASTATIN 40 MG TAB PO SCH (09:35)
[2022-12-10] MEDS: POLYETHYLENE (MIRALAX) 17 GM PACK PO SCH (09:35)
[2022-12-10] MEDS: FLUTICASONE/VILANTEROL 200/25MCG 14 PUFFS/INHALER INH SCH (09:35)
[2022-12-10] MEDS: MECLIZINE 12.5 MG TAB PO PRN (09:40)
--- NOTE | 2022-12-10 17:16 | Hospitalist Progress Note ---
Date of Service December 10, 2022 Assessment & Plan (1) Vertigo: Plan: Weakness, ambulatory dysfunction, vertigo. 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 Home health will be set up Patient is going to be discharged tomorrow when the family can get her Generalized pain Patient has a history of restless leg syndrome and diabetic neuropathy for which she is on gabapentin at home Gabapentin was being held since admission Patient has been complaining of generalized pain all over, which could be related to gabapentin withdrawal Resumed gabapentin Dysphagia Patient has trouble swallowing Ordered a pured diet Video swallow test results reviewed GERD Continue PPI Type II DM with peripheral neuropathy Last A1c 10.6 in September, poorly controlled Convert to basal bolus insulin while inpatient Patient may have diabetic gastroparesis due to poorly controlled diabetes, has a history of constipation Bowel regimen Glucose checks AC/at bedtime Goal BSG 131235 Weight-based basal bolus: Lantus 6 units twice daily, CF 70, carb ratio 23 Hypertension Metoprolol 12.5 mg twice daily Hyperlipidemia Atorvastatin daily, continue History of prior CVA Continue daily aspirin Sick sinus syndrome S/p dual-chamber pacemaker placement 01/2022. Follows outpatient with cardiology Continue telemetry due to weakness and presyncope, interrogation pending Asthma No maintenance inhalers, uses albuterol as needed Anxiety/depression Continue BuSpar 10 mg a.m., 5 mg p.m. Continue Effexor 150 mg daily Continue outpatient counseling on discharge DVT prophylaxis: Lovenox dose reduced for age/BMI Diet: Type II DM pured Code: Patient confirmed DNR/DNI (2) GERD with esophagitis: (3) DM type 2 with diabetic peripheral neuropathy: (4) HTN (hypertension): (5) SSS (sick sinus syndrome): (6) S/P cardiac pacemaker procedure: (7) CORINA (obstructive sleep apnea): (8) Tardive dyskinesia: Admission and Anticipated Discharge Date Admission Date: December 06, 2022 Subjective Patient feels well today. Complains of a little bit of vertigo. But overall much better. Review of Systems Review of Systems: All systems reviewed & are unremarkable except as noted in Subjective Physical Exam Physical Exam: General: Awake, conversant, tardive dyskinesia noted Heart: S1, S2/regular rate and rhythm, no murmur rubs or gallops Lungs: Clear to auscultation bilaterally. Normal effort Abdomen: Soft/nontender/nondistended. No hepatosplenomegaly Extremities: No clubbing/cyanosis. No edema Behavior: Appropriate, cooperative Results & Data Results & Data Vital Signs (Past 12 Hours) Vital Signs Temp Pulse Pulse Resp BP Pulse Ox O2 Del Method 12/10/22 15:24 36.5 C 88 16 111/64 95 Room Air 12/10/22 11:07 36.7 C 68 16 107/63 94 Room Air 12/10/22 09:00 Room Air 12/10/22 08:19 36.2 C L 70 16 126/74 97 Room Air PG Care Time/CCT Total # of Minutes Spent Total Time Spent with Patient: Total time spent is greater than 50% in coordination of care (as documented) at patient's floor/unit and/or counseling patient: Coding Level of Care Code 57633 SUB INP/OBS CARE 2/35MIN Diagnoses Vertigo R42 GERD with esophagitis K21.00 DM type 2 with diabetic peripheral neuropathy E11.42 HTN (hypertension) I10 SSS (sick sinus syndrome) I49.5 S/P cardiac pacemaker procedure Z95.0 CROINA (obstructive sleep apnea) G47.33 Tardive dyskinesia G24.01
[2022-12-10] MEDS: GABAPENTIN 100 MG CAP PO SCH (20:52)
[2022-12-10] MEDS: ACETAMINOPHEN 325 MG TAB PO PRN (20:54)
[2022-12-10] MEDS ORDERED: LANTUS PER UNIT CHARGE SQ SCH (21:00)
[2022-12-11] MEDS: ACETAMINOPHEN 325 MG TAB PO PRN (07:13)
[2022-12-11] MEDS: INSULIN ASPART PER UNIT CHARGE SC SCH (08:24)
[2022-12-11] MEDS: ASPIRIN 81 MG ECTAB PO SCH (08:45)
[2022-12-11] MEDS: ATORVASTATIN 40 MG TAB PO SCH (08:46)
[2022-12-11] MEDS: busPIRone 5 MG TAB PO SCH (08:47)
[2022-12-11] MEDS: DOCUSATE SODIUM/SENNA 50/8.6MG TAB PO SCH (08:50)
[2022-12-11] MEDS: CHOLECALCIFEROL 1,000 UNITS 25 MCG TAB PO SCH (08:50)
[2022-12-11] MEDS: lisinopril 2.5 MG TAB PO SCH (08:51)
[2022-12-11] MEDS: GABAPENTIN 300 MG CAP PO SCH (08:51)
[2022-12-11] MEDS: METOPROLOL TARTRATE 25 MG TAB PO SCH (08:52)
[2022-12-11] MEDS: PANTOprazole 40 MG TAB PO SCH (08:53)
[2022-12-11] MEDS: VENLAFAXINE HCL XR 150 MG CAPXR PO SCH (08:53)
[2022-12-11] MEDS: POLYETHYLENE (MIRALAX) 17 GM PACK PO SCH (08:59)
[2022-12-11] MEDS: ENOXAPARIN INJ 30 MG/0.3 ML SYR SQ SCH (09:02)
[2022-12-11] MEDS: FLUTICASONE/VILANTEROL 200/25MCG 14 PUFFS/INHALER INH SCH (09:05)
--- NOTE | 2022-12-11 10:52 | Discharge Summary ---
Date of Service December 11, 2022 Admission HPI Per Admitting Provider Patient was referred to the ER by her PCP on morning visit for worsening weakness with some shortness of breath. PCP noting that she is unable to care for herself and can no longer reliant on roommates, office of aging was contacted by PCP and patient was recommended for admission and case management consultation Patient seen at the bedside. She reports she generally does not eat very much and has a poor diet, has had minimal intake in the last couple of weeks. She has a history of "ear stones "which has caused "I spinning "when she has had a test being laid back in the past, but that was many years ago. Her current dizziness which got significantly worse yesterday and today feels similar and that the room spins, but happens even when she is lying perfectly still in bed. She has also felt more weak and discoordinated in both of her arms and has difficulty performing finger-nose testing. She has not had any chest pain, chest pressure. Does not dose that she has had multiple TIAs without focal re sidual deficits, but is generally globally weak. She did take aspirin this morning. She does take atorvastatin. She does have dyskinesia related to past psychiatric medication treatment. She has not had any fevers or chills, she notes that her temperature tends to be a little bit lower at baseline around 96 is normal for her. She has had nausea with the room spinning, denies vomiting. Is constipated generally at baseline, no abdominal pain on admission. Denies neck pain. Denies numbness/tingling. Medical History: Reviewed Medications: Reviewed Surgical History: Reviewed Family history: Reviewed Allergies: Reviewed Social History: Denies tobacco, alcohol, substance use Code Status: DNR/DNI Admission Exam Per Admitting Provider General: A&Ox3. NAD. Cooperative. Appears weak/frail. HEENT: Atraumatic, normocephalic. Poor dentition, multiple missing teeth. Vision/hearing grossly intact. No hearing deficit. Pulm: CTAB A&P. -wheezes, -rales, -rhonchi. Symmetrical chest rise. No increased work of breathing. No respiratory distress. Cardiac: RRR, -mrg. Radial pulses intact and symmetrical. Abdominal: Nontender, nondistended, soft. BS present. CRANIAL NERVES: II: Pupils equal and reactive, no relative afferent pupillary defect, no VF cuts III, IV, : EOM intact, no gaze preference or deviation, no nystagmus. V: normal sensation in V1, V2, and V3 segments bilaterally VII: no asymmetry, no nasolabial fold flattening VIII: normal hearing to speech IX, X: normal palatal elevation, no uvular deviation XI: 5/5 head turn and 5/5 shoulder shrug bilaterally XII: midline tongue protrusion Patient with dyskinesia on heel/mcmillan and finger-nose testing. Is with dysmetria, worse than baseline per pt. Slide Attendant strength/elbow flexion/extension 4 - /5, hip flexion 4 -/5, ankle dorsiflexion/plantarflexion 4/5 bilaterally Principal Diagnosis Vertigo due to benign positional vertigo Discharge Exam General: Awake, conversant, tardive dyskinesia noted Heart: S1, S2/regular rate and rhythm, no murmur rubs or gallops Lungs: Clear to auscultation bilaterally. Normal effort Abdomen: Soft/nontender/nondistended. No hepatosplenomegaly Extremities: No clubbing/cyanosis. No edema Behavior: Appropriate, cooperative Discharge Data Allergies Allergy/AdvReac Type Severity Reaction Status Date / Time camphor [From Sarna Original] Allergy Intermediate Rash Verified 12/04/22 09:42 menthol [From Sarna Original] Allergy Intermediate Rash Verified 12/04/22 09:42 adhesive Allergy Mild TAPE Verified 12/04/22 09:42 aspirin [From Aggrenox] Allergy Unknown Unknown Verified 12/04/22 09:42 chlorpromazine Allergy Unknown CAN'T Verified 12/04/22 09:42 REMEMBER dipyridamole [From Aggrenox] Allergy Unknown Unknown Verified 12/04/22 09:42 latex Allergy Unknown Unknown Verified 12/04/22 09:42 loratadine Allergy Unknown Unknown Verified 12/04/22 09:42 prazosin Allergy Unknown CAN'T Verified 12/04/22 09:42 REMEMBER sulfamethoxazole [Bactrim] Allergy Unknown CAN'T Verified 12/04/22 09:42 REMEMBER trimethoprim [Bactrim] Allergy Unknown CAN'T Verified 12/04/22 09:42 REMEMBER cyclobenzaprine AdvReac Intermediate psych Verified 12/04/22 09:42 [From Flexeril] complications oxycodone AdvReac Intermediate ITCHING Verified 12/04/22 09:42 Consultations 12/04/22 15:06 ED Decision to Admit Stat Ordered Studies 12/04/22 12:25 CT angio head w con Stat CT angio neck with con Stat CT head/brain wo con Stat 12/05/22 00:00 MR brain wo con Urgent 12/09/22 13:00 FL video swallow Routine Hospital Course (1) Vertigo: Weakness, ambulatory dysfunction, vertigo. 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 This is most likely benign positional vertigo. PT/OT recommended acute rehab, however patient is now wanting to go home. Home health will be set up Patient is going to be discharged tomorrow when the family can get her Vertigo has improved. Patient will go for vestibular therapy outpatient. Prescription given Generalized pain Patient has a history of restless leg syndrome and diabetic neuropathy for which she is on gabapentin at home Gabapentin was being held since admission Resumed gabapentin and her generalized pain resolved Dysphagia Patient has trouble swallowing Ordered a pured diet which is what patient eats at home Video swallow test results reviewed GERD Continue PPI Type II DM with peripheral neuropathy Last A1c 10.6 in September, poorly controlled Hypertension Metoprolol 12.5 mg twice daily Hyperlipidemia Atorvastatin daily, continue History of prior CVA Continue daily aspirin Sick sinus syndrome S/p dual-chamber pacemaker placement 01/2022. Follows outpatient with cardiology Continue telemetry due to weakness and presyncope, interrogation pending Asthma No maintenance inhalers, uses albuterol as needed Anxiety/depression Continue BuSpar 10 mg a.m., 5 mg p.m. Continue Effexor 150 mg daily Continue outpatient counseling on discharge DVT prophylaxis: Lovenox dose reduced for age/BMI Diet: Type II DM pured Code: Patient confirmed DNR/DNI (2) GERD with esophagitis: (3) DM type 2 with diabetic peripheral neuropathy: (4) HTN (hypertension): (5) SSS (sick sinus syndrome): (6) S/P cardiac pacemaker procedure: (7) CORINA (obstructive sleep apnea): (8) Tardive dyskinesia: Total Time Total Time Spent Total Time Spent (In Minutes): 35 Discharge Plan Discharge Items Patient Disposition: Home - Home Health Services Reason For Visit: WEAKNESS, VERTIGO, OOA REFERRAL 2/2 INABILITY TO C Discharge Diagnosis: Vertigo most likely secondary to benign positional vertigo Activity: Resume your previous activity Non-emergency contact: Primary Care Provider Call non-emergency contact if: your symptoms worsen Follow-up/Referrals: Jennifer Martin CRNP [Primary Care Provider] - 12/16/22 1:00 pm Diet: Carb Consistent or DM2 Addtl Attending Provider Instructions: Advised to note that you have been given a prescription for outpatient vestibular therapy for your vertigo. Pending Studies at Discharge: No Stand-Alone Forms: [facility] Medications and DC Order Prescriptions: Continued (DME) OneTouch Ultra Test Strip See Rx Instructions .ROUTE .MEDSUPPLY Qty: 100 0RF Rx Instructions: Check blood sugar before meals and at bedtime atorvastatin 40 mg tablet 40 mg PO DAILY Qty: 90 3RF (DME) lancets [OneTouch UltraSoft Lancets] Misc See Rx Instructions .Route Qty: 200 3RF Rx Instructions: Check blood sugar before meals and at bedtime (DME) OneTouch Verio test strips Strip See Rx Instructions .Route Qty: 100 3RF Rx Instructions: Check blood sugar before meals and at bedtime Sutab 1.479-0.188- 0.225 gram tablet See Rx Instructions PO .COMPLEX Qty: 24 0RF Rx Instructions: Take per split dose instructions. PLEASE USE COUPON BIN: [id number] PCN: EULOG[employer]#: [id number] Jardiance 25 mg tablet 25 mg PO DAILY Qty: 90 3RF (DME) pen needle, diabetic [BD Ultra-Fine Shreya Pen Needle] 32 gauge x 5/32" needle See Rx Instructions .ROUTE .MEDSUPPLY Qty: 100 3RF Rx Instructions: As directed lisinopril 2.5 mg tablet 2.5 mg PO DAILY Qty: 30 2RF (DME) blood-glucose meter Kit See Rx Instructions .Route Qty: 1 0RF Rx Instructions: E11.42 check BSG four times daily metoprolol tartrate 25 mg tablet 12.5 mg PO DAILY Rx Instructions: take 1/2 in am and 1/2 in pm metoclopramide HCl [Reglan] 5 mg tablet 5 mg PO TID PRN (Reason: nausea and vomiting) Qty: 30 0RF cholecalciferol (vitamin D3) 50 mcg (2,000 unit) capsule 50 mcg PO DAILY Qty: 30 0RF trolamine salicylate 10 % cream 1 applic topical DAILY PRN (Reason: muscle pain) Qty: 100 0RF albuterol sulfate 2.5 mg /3 mL (0.083 %) solution for nebulization 2.5 mg inhalation Q6H PRN (Reason: shortness of breath or wheezing) Qty: 180 3RF venlafaxine 150 mg capsule,extended release 24hr 150 mg PO DAILY Qty: 90 3RF aspirin [Adult Low Dose Aspirin] 81 mg tablet,delayed release (DR/EC) 81 mg PO DAILY Qty: 90 3RF fluticasone propionate [Flonase Allergy Relief] 50 mcg/actuation spray,suspension 2 spray intranasal DAILY Qty: 16 2RF Rx Instructions: administer into each nostril Liquacel 16-100 gram-kcal/30 mL liquid 30 ml PO BID Qty: 5760 0RF buspirone 5 mg tablet See Rx Instructions PO .COMPLEX Qty: 90 2RF Rx Instructions: 2 tabs in the morning and 1 tab in the evening orally; budesonide-formoterol [Symbicort] 160-4.5 mcg/actuation HFA aerosol inhaler 2 puff inhalation BID Qty: 10.2 3RF Rx Instructions: Rinse mouth out after use albuterol sulfate [Proventil HFA] 90 mcg/actuation HFA aerosol inhaler 2 puff inhalation Q6H PRN (Reason: shortness of breath or wheezing) Qty: 8.5 0RF insulin glargine [Lantus Solostar U-100 Insulin] 100 unit/mL (3 mL) insulin pen 6 unit subcut QPM Hold Instructions: Hypoglycemia pantoprazole [Protonix] 40 mg tablet,delayed release (DR/EC) 40 mg PO DAILY gabapentin 300 mg capsule 300 mg PO TID Rx Instructions: Take by mouth three times daily, TOTAL DOSE AT HS 400 MG. gabapentin 100 mg capsule 100 mg PO QPM Rx Instructions: TOTAL DOSE QPM 400 MG--Take with 300 MG CAP. diclofenac sodium [Voltaren Arthritis Pain] 1 % gel 2 g topical QID PRN (Reason: Pain) meclizine 12.5 mg tablet 12.5 mg PO TID PRN (Reason: dizziness) Qty: 20 0RF Discharge Orders: Discharge Order (Routine); Ordered 12/11/22 Ordered By: Vic Delcid/Other Patient Handouts: Vertigo Staying Safe Admission Data Admit Date/Time: 12/06/22 15:23 Attending Provider: Vic Andrews Admit Provider: Kevin Baptiste Primary Care Provider: Jennifer Martin Other Providers: Kevin Baptiste ; [place] Other Interventions: Discharge Summary Assessment (RN) Last Done: 12/11/22 11:13 Coding Level of Care Code 31795 INP/OBS DISCH >30 MIN Diagnoses Vertigo R42 GERD with esophagitis K21.00 DM type 2 with diabetic peripheral neuropathy E11.42 HTN (hypertension) I10 SSS (sick sinus syndrome) I49.5 S/P cardiac pacemaker procedure Z95.0 CORINA (obstructive sleep apnea) G47.33 Tardive dyskinesia G24.01
== END 2022-12-11 11:42 | disposition home health service (06) | DRG 149 ==
LOC: 2N 10:48 → ED 10:48 → SUATTDRO 15:42 → 2N 21:00 → 3W 12-07 15:33

== ENCOUNTER 2023-03-05 11:06 | Observation (INO) ==
[2023-03-05] MEDS ORDERED: CEFEPIME 2,000 MG/20 ML VIAL IV STA (11:35)
[2023-03-05] MEDS ORDERED: SODIUM CHLORIDE 0.9% 500 ML IV SCH (11:45)
[2023-03-05] MEDS ORDERED: ONDANSETRON INJ 2 MG/ML 2 ML VIAL IV STA (11:55)
[2023-03-05] MEDS ORDERED: ACETAMINOPHEN 1,000 MG/100 ML VIAL IV STA (11:55)
[2023-03-05] MEDS ORDERED: SODIUM CHLORIDE 0.9% 1000ML 1,000 ML IV ONE (11:55)
--- NOTE | 2023-03-05 11:58 | Emergency Department Note ---
Impression & Plan Weakness, Vomiting, Acute dehydration, Gastroparesis ED Provider Note NAME: BAYRON FALL AGE: 72 SEX: F : 1950 ARRIVES VIA: Walk-In INFORMANT: [Patient][family] ED PROVIDER(S): [Carlos Maldonado MD] CHIEF COMPLAINT: Illness HISTORY OF PRESENT ILLNESS: The patient is a 72-year-old female with a history of gastroparesis and Cortez's esophagitis. She has had some weakness and decline in the last several months. In the last week, things have markedly worsened. She is vomiting more. She is complained of some body aches. She has become weaker to the point of not being able to stand. There has been no cough or congestion or respiratory complaint, no urinary complaint. No diarrhea. She states that her whole body hurts, even the skin seems to hurt. PMHx/PSHx: See Below SOCIAL HISTORY: See Below. PHYSICAL EXAM: GENERAL: Patient is in no acute distress. HEENT: No acute trauma, normocephalic atraumatic, mucous membranes markedly dry, no nasal congestion. NECK: No stridor, no adenopathy, no meningismus, trachea is midline. LUNGS: Clear to auscultation bilaterally, no wheeze, no rhonchi, breath sounds equal. HEART: Mildly tachycardic, regular rhythm, no murmurs. ABDOMEN: Soft, nontender, bowel sounds positive, no peritonitis. EXTREMITIES: No cyanosis or edema, full range of motion of all the joints without pain or difficulty, no signs for acute trauma. NEUROLOGIC: Awake, alert, no acute motor or sensory deficits, no focal weakness. SKIN: No rash, no jaundice, no diaphoresis. DIFFERENTIAL DIAGNOSIS: Dehydration, intracranial bleeding, stroke, bowel obstruction, sepsis or bacteremia, UTI, renal or liver failure, dehydration, among others. EMERGENCY DEPARTMENT COURSE/PROCEDURES: Prior/Outside records reviewed: Previous GI notes. ECG per my interpretation: Indication was weakness. The ECG shows a normal sinus rhythm with a rate of 83. There is a right bundle branch block. There is no ST elevation, no PVCs. QTc is 458. Compared to an ECG from January to January 2023, I see no significant change. Continuous Cardiac Monitoring per my interpretation: An order was placed for continuous cardiac monitoring. The monitor shows a rate of 83 with normal sinus rhythm. MEDICAL DECISION MAKING: There is no leukocytosis or concerning anemia. There is a normal platelet count. INR is not elevated. Renal panel testing shows an anion gap of 21 with a slightly lower CO2 at 19. BUN was slightly elevated. The anion gap, lower CO2 and elevated BUN are likely secondary to dehydration. There is no renal failure. Lactic acid level was slightly elevated, likely from dehydration. Repeat lactic acid level showed normalization. No concerning liver enzyme elevation. Total CK was not elevated making rhabdomyolysis unlikely. Patient's TSH was low, the T4 however was normal. ECG shows a normal sinus rhythm, no obvious ST elevation. Cardiac enzyme testing x1 is not consistent with acute cardiac injury. Urinalysis shows dehydration, no obvious infection. COVID test returned negative. Chest film per my review did not show mediastinal widening or pneumonia. Brain CT showed no acute bleed or mass effect. CT of the abdomen pelvis did not show any bowel obstruction or acute surgical process. On exam, the patient appeared quite dehydrated. Patient was given IV saline, 1.5 L. She was given 1 L of lactated Ringer's IV. She received IV Zofran for nausea, IV cefepime as empiric antibiotic coverage. She received IV Pepcid and IV Protonix. The patient is currently resting comfortably. She does require a hospital stay. She is quite dehydrated from persistent vomiting. She is now so weak that she cannot stand or care for herself. I spoke with the patient and her family, I did speak with case management, the on-call hospitalist was consulted. DISPOSITION: Patient's presentation and findings warrant a hospital stay. Past Med/Surg History Medical History Anxiety Asthma, mild persistent inhaler daily/prn, nebulizer prn Dehydration recently admitted to [facility] for this (12/04/22) Depression DM type 2 with diabetic peripheral neuropathy Dyslipidemia GERD with esophagitis GERD and medium-sized hiatus hernia with associated Aravind's erosions (dx [address] Portillo) s/p lap Saji Fundoplication by Dr. Peralta at [facility] in May of 2021 History of COVID-19 diagnosed 08/2022--admitted to [facility]-- HTN (hypertension) Intractable nausea and vomiting Iron deficiency anemia Major depressive disorder Metabolic acidosis CORINA (obstructive sleep apnea) device recalled and never got another device Osteoarthritis PTSD (post-traumatic stress disorder) RLS (restless legs syndrome) SSS (sick sinus syndrome) Stroke 2002--due to high blood pressure---speech deficit, otherwise no other issues--was cleared from neurologist Tardive dyskinesia Vitamin D deficiency Surgical History Amputation toe Hammer toe History of appendectomy History of bilateral oophorectomy History of bladder surgery vaginal sling History of bunionectomy History of cardiac cath "a long time ago"--no stents placed History of cataract surgery right History of cholecystectomy History of colonoscopy History of dilatation and curettage History of esophagogastroduodenoscopy (EGD) History of hysterectomy History of knee replacement bilateral History of repair of hiatal hernia History of tonsillectomy History of tooth extraction Pacemaker medtronic--placed 01/2022 @ [facility]--follows S/P cardiac pacemaker procedure medtronic S/P cervical spinal fusion normal ROM S/P repair of paraesophageal hernia Status post rotator cuff repair Family History Daughter Cervical cancer Father Gallbladder cancer Colorectal cancer Aunt Diabetes Breast cancer Brother Heart disease Suicide Mother Schizophrenia Suicide Grandmother (Paternal) Breast cancer Grandfather (Paternal) Myocardial infarction Other Family history not known due to adoption Denies family history of Ovarian cancer Prostate cancer Social History Smoking Status: Never smoker Second Hand Exposure: No; Do You Dip or Chew Tobacco: No; Hx Alcohol Use: No Hx Substance Use: No Preferred Language: Gibraltarian Communication Ability: Effective Visual Impairment: Limited Hearing Ability: Normal Vegetable Grader Required: No Beliefs That Will Affect Care: None marital status: / Current Living Situation: Family Current Living Situation Comment: Lives at the [facility] current occupational status: retired How many Children do You have: 0 Feels Safe at Home: Yes Childhood Exposure to Second-Hand Smoke: Yes Diet: low carbohydrate and regular caffeine: Yes during the past year weight has: remained stable Dental Care, Regularly: Yes Physical Activity Frequency: Does not Exercise Seatbelt Use: always Sunscreen Use: Yes Do you think of yourself as: straight/heterosexual Gender Identity: Female Assistive Devices: Denture - Upper, Denture - Lower and Glasses Allergies Allergies Allergy/AdvReac Type Severity Reaction Status Date / Time adhesive Allergy Intermediate ITCHY RASH Verified 01/27/23 16:00 camphor [From Sarna Original] Allergy Intermediate ITCHY, Verified 01/27/23 16:01 BLISTERY RASH latex Allergy Intermediate itching Verified 01/27/23 16:00 menthol [From Sarna Original] Allergy Intermediate ITCHY, Verified 01/27/23 1 6:01 BLISTERY RASH methyl salicylate Allergy Intermediate ITCHY, Verified 01/27/23 16:00 [From Icy Hot] BLISTERING RASH nickel Allergy Intermediate swelling Verified 01/27/23 16:00 and redness sulfamethoxazole [Bactrim] Allergy Intermediate THROAT Verified 01/27/23 16:00 FELT FULL, MOUTH ULCERS trimethoprim [Bactrim] Allergy Intermediate THROAT Verified 01/27/23 16:00 FELT FULL, MOUTH ULCERS chlorpromazine Allergy Unknown CAN'T Verified 01/27/23 16:00 REMEMBER aspirin [From Aggrenox] AdvReac Intermediate MADE Verified 01/27/23 16:00 HEADACHE WORSE cyclobenzaprine AdvReac Intermediate psych Verified 01/27/23 16:00 [From Flexeril] complications dipyridamole [From Aggrenox] AdvReac Intermediate MADE Verified 01/27/23 16:00 HEADACHE WORSE loratadine AdvReac Intermediate AGITATED, Verified 01/27/23 16:00 IF CONTAINS DECONGESTANT--BECOMES MEAN oxycodone AdvReac Intermediate NAUSEA/VOMI Verified 01/27/23 16:00 TING prazosin AdvReac Intermediate ABD Verified 01/27/23 16:00 PAIN/NAUSEA/VOMITING Home Meds Home Medications Medication Instructions Recorded Confirmed gabapentin 100 mg capsule 100 mg PO QPM 11/11/22 03/05/23 gabapentin 300 mg capsule 300 mg PO TID 11/11/22 03/05/23 pantoprazole 40 mg tablet,delayed 40 mg PO QAM 11/11/22 03/05/23 release (Protonix) metoprolol tartrate 25 mg tablet 25 mg PO BID 12/04/22 03/05/23 aspirin 81 mg tablet,delayed 81 mg PO QAM 12/11/22 03/05/23 release (Adult Low Dose Aspirin) atorvastatin 40 mg tablet 40 mg PO QAM 12/11/22 03/05/23 buspirone 5 mg tablet See Rx Instructions .Route .COMPLEX 12/11/22 03/05/23 cholecalciferol (vitamin D3) 50 50 mcg PO QAM 12/11/22 03/05/23 mcg (2,000 unit) capsule empagliflozin 25 mg tablet 25 mg PO QAM 12/11/22 03/05/23 (Jardiance) fluticasone propionate 50 2 spray intranasal DAILY PRN 12/11/22 03/05/23 mcg/actuation nasal Allergy Symptoms spray,suspension (Flonase Allergy Relief) venlafaxine 150 mg 150 mg PO QAM 12/11/22 03/05/23 capsule,extended release 24 hr insulin glargine 100 unit/mL (3 10 unit subcut QPM 01/02/23 03/05/23 mL) subcutaneous pen (Lantus Solostar U-100 Insulin) metformin 1,000 mg tablet 1,000 mg PO BID 01/02/23 03/05/23 lisinopril 10 mg tablet 5 mg PO QAM 01/27/23 03/05/23 venlafaxine 75 mg capsule,extended 75 mg PO DAILY 03/05/23 03/05/23 release 24 hr Previous Rx's Medication Instructions Recorded albuterol sulfate 90 mcg/actuation 2 puff inhalation Q6H PRN 09/25/22 aerosol inhaler (Proventil HFA) shortness of breath or wheezing #8.5 grams pen needle, diabetic 32 gauge x #100 ea 10/03/2232" (BD Ultra-Fine Shreya Pen Needle) blood sugar diagnostic (OneTouch #100 ea 10/30/22 Ultra Test strips) blood-glucose meter #1 ea 11/13/22 lancets (OneTouch UltraSoft #200 ea 11/18/22 Lancets) meclizine 12.5 mg tablet 12.5 mg PO TID PRN dizziness #20 12/02/22 tabs blood sugar diagnostic (OneTouch #100 ea 12/16/22 Verio test strips) Results & Data (ED) Vital Signs Vital Signs - 24 hr 03/05/23 11:07 03/05/23 12:20 03/05/23 11:07 Temperature 37.1 C Temperature Source Temporal Artery Scan Pulse Rate 128 H 83 Respiratory Rate 17 Respiratory Effort / Characteristics Non-Labored Respiratory Depth Normal Blood Pressure 119/74 Blood Pressure [Right Arm] 122/74 Blood Pressure [Right Radial Artery] 122/74 Blood Pressure Mean 89 Blood Pressure Mean [Right Arm] 90 Blood Pressure Mean [Right Radial Artery] 90 Pulse Oximetry 97 99 Oxygen Delivery Method Room Air Nasal Cannula Oxygen Flow Rate 3 Sepsis Recent Fever Within 48 Hours No Sepsis New/Unexplained Change in Mental Status No Sepsis Action Taken by Nursing No Action Required Home Medications Current Medication List: was personally reviewed by me Laboratory Data Attestation: I reviewed the patient's lab results. 03/05/23 12:00 03/05/23 12:00 Lab Results 03/05/23 03/05/23 03/05/23 Range/Units 12:00 12:00 12:00 WBC 10.69 (4.8-10.8) K/ul RBC 4.90 (4.20-5.40) M/uL Hgb 14.1 (12.0-16.0) g/dl Hct 42.5 (37.0-47.0) % MCV 86.7 (80.0-100.0) fL MCH 28.8 (25.0-34.0) pg MCHC 33.2 (32.0-36.0) g/dL RDW Std Deviation 40.4 (36.4-46.3) fL RDW Coeff of Peggy 12.9 (11.5-14.5) % Plt Count 358 (130-400) K/uL MPV 9.2 L (9.4-12.4) fL Immature Gran % (Auto) 0.3 % Neut % (Auto) 85.5 % Lymph % (Auto) 9.0 % [place] % (Auto) 4.6 % Eos % (Auto) 0.1 % Baso % (Auto) 0.5 % Neut # (Auto) 9.15 H (1.40-6.50) K/uL Lymph # (Auto) 0.96 L (1.2-3.4) K/uL [place] # (Auto) 0.49 (0.11-0.59) K/uL Eos # (Auto) 0.01 (0-0.50) K/uL Baso # (Auto) 0.05 (0-0.2) K/uL Immature Gran # (Auto) 0.03 (0.01-0.20) K/uL PT 10.9 (9.0-12.0) Seconds INR 1.0 (0.9-1.1) Sodium 139 (136-145) mmol/L Potassium 4.2 (3.5-5.1) mmol/L Chloride 99 (98-107) mmol/L Carbon Dioxide 19 L (21-32) mmol/L Anion Gap 21 H (3-11) BUN 51 H (6-23) mg/dl Creatinine 0.67 (0.6-1.2) mg/dl Est Cr Clr Drug Dosing 60.0 ml/min Est GFR ( Amer) 101.8 ml/min Est GFR (Non-Af Amer) 87.8 ml/min BUN/Creatinine Ratio 76.1 H (10-20) Glucose 141 H (70-99(Fasting)) mg/dl Lactate (0.4-2.0) mmol/L Calcium 10.2 (8.6-10.3) mg/dl Magnesium 2.1 (1.7-2.4) mg/dl Total Bilirubin 1.0 (0.2-1.0) mg/dl AST 21 (13-39) U/L ALT 18 (7-52) U/L Alkaline Phosphatase 70 (34-104) U/L Total Creatine Kinase 50 (26-192) U/L Troponin I High Sens 6.6 (0-14) pg/ml Total Protein 7.2 (6.0-8.3) gm/dl Albumin 4.4 (3.4-5.0) gm/dl Globulin 2.8 (2.5-4.0) gm/dl Albumin/Globulin Ratio 1.6 (0.9-2) TSH (0.300-4.500) uIu/ml Free T4 (0.61-1.60) ng/dl Urine Color Urine Appearance (Clear) Urine pH (4.5-7.5) Ur Specific [place] (1.000-1.030) Urine Protein (Negative) Urine Glucose (UA) (Negative) Urine Ketones (Negative) Urine Blood (Negative) Urine Nitrite (Negative) Urine Bilirubin (Negative) Urine Urobilinogen (Negative) Ur Leukocyte Esterase (Negative) SARS-CoV-2, RNA, NAAT (NEGATIVE) 03/05/23 03/05/23 03/05/23 Range/Units 12:00 12:00 12:45 WBC (4.8-10.8) K/ul RBC (4.20-5.40) M/uL Hgb (12.0-16.0) g/dl Hct (37.0-47.0) % MCV (80.0-100.0) fL MCH (25.0-34.0) pg MCHC (32.0-36.0) g/dL RDW Std Deviation (36.4-46.3) fL RDW Coeff of Peggy (11.5-14.5) % Plt Count (130-400) K/uL MPV (9.4-12.4) fL Immature Gran % (Auto) % Neut % (Auto) % Lymph % (Auto) % [place] % (Auto) % Eos % (Auto) % Baso % (Auto) % Neut # (Auto) (1.40-6.50) K/uL Lymph # (Auto) (1.2-3.4) K/uL [place] # (Auto) (0.11-0.59) K/uL Eos # (Auto) (0-0.50) K/uL Baso # (Auto) (0-0.2) K/uL Immature Gran # (Auto) (0.01-0.20) K/uL PT (9.0-12.0) Seconds INR (0.9-1.1) Sodium (136-145) mmol/L Potassium (3.5-5.1) mmol/L Chloride (98-107) mmol/L Carbon Dioxide (21-32) mmol/L Anion Gap (3-11) BUN (6-23) mg/dl Creatinine (0.6-1.2) mg/dl Est Cr Clr Drug Dosing ml/min Est GFR ( Amer) ml/min Est GFR (Non-Af Amer) ml/min BUN/Creatinine Ratio (10-20) Glucose (70-99(Fasting)) mg/dl Lactate 2.2 H* (0.4-2.0) mmol/L Calcium (8.6-10.3) mg/dl Magnesium (1.7-2.4) mg/dl Total Bilirubin (0.2-1.0) mg/dl AST (13-39) U/L ALT (7-52) U/L Alkaline Phosphatase (34-104) U/L Total Creatine Kinase (26-192) U/L Troponin I High Sens (0-14) pg/ml Total Protein (6.0-8.3) gm/dl Albumin (3.4-5.0) gm/dl Globulin (2.5-4.0) gm/dl Albumin/Globulin Ratio (0.9-2) TSH 0.252 L (0.300-4.500) uIu/ml Free T4 1.23 (0.61-1.60) ng/dl Urine Color Yellow Urine Appearance Clear (Clear) Urine pH 5.0 (4.5-7.5) Ur Specific [place] 1.031 H (1.000-1.030) Urine Protein Negative (Negative) Urine Glucose (UA) 3+ H (Negative) Urine Ketones 4+ H (Negative) Urine Blood Negative (Negative) Urine Nitrite Negative (Negative) Urine Bilirubin Negative (Negative) Urine Urobilinogen Negative (Negative) Ur Leukocyte Esterase Negative (Negative) SARS-CoV-2, RNA, NAAT (NEGATIVE) 03/05/23 03/05/23 Range/Units 14:15 Unknown WBC (4.8-10.8) K/ul RBC (4.20-5.40) M/uL Hgb (12.0-16.0) g/dl Hct (37.0-47.0) % MCV (80.0-100.0) fL MCH (25.0-34.0) pg MCHC (32.0-36.0) g/dL RDW Std Deviation (36.4-46.3) fL RDW Coeff of Peggy (11.5-14.5) % Plt Count (130-400) K/uL MPV (9.4-12.4) fL Immature Gran % (Auto) % Neut % (Auto) % Lymph % (Auto) % [place] % (Auto) % Eos % (Auto) % Baso % (Auto) % Neut # (Auto) (1.40-6.50) K/uL Lymph # (Auto) (1.2-3.4) K/uL [place] # (Auto) (0.11-0.59) K/uL Eos # (Auto) (0-0.50) K/uL Baso # (Auto) (0-0.2) K/uL Immature Gran # (Auto) (0.01-0.20) K/uL PT (9.0-12.0) Seconds INR (0.9-1.1) Sodium (136-145) mmol/L Potassium (3.5-5.1) mmol/L Chloride (98-107) mmol/L Carbon Dioxide (21-32) mmol/L Anion Gap (3-11) BUN (6-23) mg/dl Creatinine (0.6-1.2) mg/dl Est Cr Clr Drug Dosing ml/min Est GFR ( Amer) ml/min Est GFR (Non-Af Amer) ml/min BUN/Creatinine Ratio (10-20) Glucose (70-99(Fasting)) mg/dl Lactate 1.2 (0.4-2.0) mmol/L Calcium (8.6-10.3) mg/dl Magnesium (1.7-2.4) mg/dl Total Bilirubin (0.2-1.0) mg/dl AST (13-39) U/L ALT (7-52) U/L Alkaline Phosphatase (34-104) U/L Total Creatine Kinase (26-192) U/L Troponin I High Sens (0-14) pg/ml Total Protein (6.0-8.3) gm/dl Albumin (3.4-5.0) gm/dl Globulin (2.5-4.0) gm/dl Albumin/Globulin Ratio (0.9-2) TSH (0.300-4.500) uIu/ml Free T4 (0.61-1.60) ng/dl Urine Color Urine Appearance (Clear) Urine pH (4.5-7.5) Ur Specific [place] (1.000-1.030) Urine Protein (Negative) Urine Glucose (UA) (Negative) Urine Ketones (Negative) Urine Blood (Negative) Urine Nitrite (Negative) Urine Bilirubin (Negative) Urine Urobilinogen (Negative) Ur Leukocyte Esterase (Negative) SARS-CoV-2, RNA, NAAT NEGATIVE (NEGATIVE) Administered Medications Discontinued Medications Sodium Chloride (Nss) 500 mls @ 999 mls/hr IV .Q31M [facility] Stop: 03/05/23 12:15 Last Admin: 03/05/23 13:41 Dose: 999 mls/hr Documented By: BRIELLE Cefepime HCl (Maxipime) 2,000 mg in 20 mls @ 5 mls/min IV NOW STA; Protocol Stop: 03/05/23 11:38 Last Admin: 03/05/23 12:35 Dose: 5 mls/min Documented By: BRIELLE Sodium Chloride (Nss 1000ml) 1,000 mls @ 999 mls/hr IV .Q1H1M ONE Stop: 03/05/23 12:55 Last Admin: 03/05/23 12:36 Dose: 999 mls/hr Documented By: BRIELLE Acetaminophen (Ofirmev) 1,000 mg in 100 mls @ 400 mls/hr IV NOW STA Stop: 03/05/23 12:09 Last Admin: 03/05/23 12:34 Dose: 400 mls/hr Documented By: BRIELLE Ondansetron HCl (Ondansetron Inj 2 Mg/Ml 2 Ml Vial) 4 mg IV NOW STA Stop: 03/05/23 11:56 Last Admin: 03/05/23 12:34 Dose: 4 mg Documented By: BRIELLE Imaging Data Radiologist's Impression: Chest X-Ray 03/05/23 11:34 XR chest 1V portable HISTORY: 72 years-old Female weakness acute weakness COMPARISON: 01/27/2023 TECHNIQUE: AP view of the chest FINDINGS: Cardiac silhouette is enlarged. Dual lead left subclavian pacer. Atherosclerosis of the aorta. Left atrial septal occlusion device. No pneumothorax, pleural effusion, airspace consolidation or pulmonary edema. Degenerative changes of the shoulders and spine. Cholecystectomy. Cervical spinal fusion hardware. Chronic deformity of the distal right clavicle. IMPRESSION: No acute process. ACT 112: Negative or not required by law. The above report was generated using voice recognition software. It may contain grammatical, syntax or spelling errors. Electronically signed by: Maykel Lainez M.D. 03/05/2023 12:[address] 03/05/23 11:48 CT head/brain wo con CLINICAL HISTORY: 72 years-old Female with weakness. Acute weakness TECHNIQUE: Multiple axial CT images of the head were obtained without contrast. A dose lowering technique was utilized adhering to the principles of ALARA. COMPARISON: 12/05/2022. FINDINGS: No acute intracranial hemorrhage, midline shift, intracranial mass, hydrocephalus, territorial ischemia or abnormal extra-axial collection. Involutional changes with chronic microvascular ischemic disease. The calvarium is intact. Right-sided lens repair. The paranasal sinuses, mastoid air cells, and middle ear cavities are clear. IMPRESSION: No acute intracranial abnormality. ACT 112: Negative or not required by law. The above report was generated using voice recognition software. It may contain grammatical, syntax or spelling errors. Electronically signed by: Maykel Lainez M.D. 03/05/2023 1:34 PM Abdomen/Pelvis CT 03/05/23 11:49 CT OF THE ABDOMEN AND PELVIS WITHOUT CONTRAST CLINICAL HISTORY: Vomiting. Possible obstruction. COMPARISON STUDY: CT of the abdomen and pelvis October 14, 2022 and KUB January 27, 2023. TECHNIQUE: Axial images of the abdomen and pelvis were obtained without IV contrast. Images were reviewed in the axial, sagittal, and coronal planes. Aut omated exposure control was utilized for the study. A dose lowering technique was utilized adhering to the principles of ALARA. FINDINGS: Lung bases are unremarkable. Evaluation of the abdomen and pelvis is suboptimal on this unenhanced exam. No pneumatosis, free air or portal venous gas is present. There is no biliary ductal dilatation status post cholecystectomy. There are no urinary calculi. No hydronephrosis is present. Spleen, adrenal glands and pancreas are unremarkable. There is no evidence for a bowel obstruction. Colonic diverticulosis is present without evidence for acute diverticulitis. There is no lymphadenopathy. No fluid collection is present. No acute fractures are identified within visualized skeletal structures. IMPRESSION: 1. No acute process within the abdomen or pelvis on unenhanced exam. 2. No bowel obstruction. 3. Colonic diverticulosis. No evidence for acute diverticulitis. ACT 112: Negative or not required by law. Electronically signed by: Jeffry Morgan M.D. 03/05/2023 1:39 PM Discharge Plan Visit Data Chief Complaint: Illness Stated Complaint: BEEN BEDRIDDEN FOR DAYS ED Provider: Carlos Maldonado Discharge Problem: Weakness, Vomiting, Acute dehydration, Gastroparesis Patient Disposition: Admitted As Inpatient Condition: Fair Forms Stand Alone Forms: mInfo Prescriptions Prescriptions: No Action (DME) OneTouch Ultra Test Strip See Rx Instructions .ROUTE .MEDSUPPLY Qty: 100 0RF Rx Instructions: Check blood sugar before meals and at bedtime (DME) lancets [OneTouch UltraSoft Lancets] Misc See Rx Instructions .Route Qty: 200 3RF Rx Instructions: Check blood sugar before meals and at bedtime (DME) OneTouch Verio test strips Strip See Rx Instructions .Route Qty: 100 3RF Rx Instructions: Check blood sugar before meals and at bedtime metformin 1,000 mg tablet 1,000 mg PO BID Patient Comments: 01/02/23: Prescribed 1000mg BID, but patient takes 2000mg once daily (DME) pen needle, diabetic [BD Ultra-Fine Shreya Pen Needle] 32 gauge x 5/32" needle See Rx Instructions .ROUTE .MEDSUPPLY Qty: 100 3RF Rx Instructions: As directed (DME) blood-glucose meter Kit See Rx Instructions .Route Qty: 1 0RF Rx Instructions: E11.42 check BSG four times daily metoprolol tartrate 25 mg tablet 25 mg PO BID albuterol sulfate [Proventil HFA] 90 mcg/actuation HFA aerosol inhaler 2 puff inhalation Q6H PRN (Reason: shortness of breath or wheezing) Qty: 8.5 0RF insulin glargine [Lantus Solostar U-100 Insulin] 100 unit/mL (3 mL) insulin pen 10 unit subcut QPM Hold Instructions: Hypoglycemia pantoprazole [Protonix] 40 mg tablet,delayed release (DR/EC) 40 mg PO QAM gabapentin 300 mg capsule 300 mg PO TID Rx Instructions: PER ORDER--Take by mouth three times daily, TOTAL DOSE AT HS 400 MG. gabapentin 100 mg capsule 100 mg PO QPM Rx Instructions: TOTAL DOSE QPM 400 MG--Take with 300 MG CAP. lisinopril 10 mg tablet 5 mg PO QAM atorvastatin 40 mg tablet 40 mg PO QAM buspirone 5 mg tablet See Rx Instructions .ROUTE .COMPLEX Rx Instructions: 2 tabs in the morning and 1 tab in the evening orally; venlafaxine 150 mg capsule,extended release 24hr 150 mg PO QAM aspirin [Adult Low Dose Aspirin] 81 mg tablet,delayed release (DR/EC) 81 mg PO QAM fluticasone propionate [Flonase Allergy Relief] 50 mcg/actuation spray,suspension 2 spray intranasal DAILY PRN (Reason: Allergy Symptoms) Rx Instructions: administer into each nostril cholecalciferol (vitamin D3) 50 mcg (2,000 unit) capsule 50 mcg PO QAM Jardiance 25 mg tablet 25 mg PO QAM meclizine 12.5 mg tablet 12.5 mg PO TID PRN (Reason: dizziness) Qty: 20 0RF venlafaxine 75 mg capsule,extended release 24hr 75 mg PO DAILY Referrals Referrals: Jennifer Martin CRNP [Primary Care Provider] -
--- NOTE | 2023-03-05 12:05 | XRay Report ---
XR chest 1V portable HISTORY: 72 years-old Female weakness acute weakness COMPARISON: 01/27/2023 TECHNIQUE: AP view of the chest FINDINGS: Cardiac silhouette is enlarged. Dual lead left subclavian pacer. Atherosclerosis of the aorta. Left a trial septal occlusion device. No pneumothorax, pleural effusion, airspace consolidation or pulmonary edema. Degenerative changes of the shoulders and spine. Cholecystectomy. Cervical spinal fusion hard [place]ara. Chronic deformity of the distal right clavicle. IMPRESSION: No acute process. ACT 112: Negative or not required by law. The above report was generated using voice recognition software. It may contain grammatical, syntax o r spelling errors. Electronically signed by: Maykel Lainez M.D. 03/05/2023 12:04 PM
[2023-03-05 12:52] LABS: Basophils # (auto) 0.05 K/uL (0-0.2); Basophils % (auto) 0.5 %; Eosinophils # (auto) 0.01 K/uL (0-0.50); Eosinophils % (auto) 0.1 %; Hematocrit (blood only) 42.5 % (37.0-47.0); Hemoglobin 14.1 g/dl (12.0-16.0); Immature Granulocytes # (auto) 0.03 K/uL (0.01-0.20); Immature Granulocytes % (auto) 0.3 %; Lymphocytes # (auto) 0.96 K/uL (1.2-3.4); Mean Corpuscular Hemoglobin 28.8 pg (25.0-34.0); Mean Corpuscular Hgb Conc 33.2 g/dL (32.0-36.0); Mean Corpuscular Volume 86.7 fL (80.0-100.0); Mean Platelet Volume 9.2 fL (9.4-12.4); Monocytes # (auto) 0.49 K/uL (0.11-0.59); Monocytes % (auto) 4.6 %; Neutrophils # (auto) 9.15 K/uL (1.40-6.50); Neutrophils % (auto) 85.5 %; Platelet Count 358 K/uL (130-400); RDW Coefficient of Variation 12.9 % (11.5-14.5); RDW Standard Deviation 40.4 fL (36.4-46.3); White Blood Count 10.69 K/ul (4.8-10.8)
[2023-03-05 13:10] LABS: Appearance Urine Clear (Clear); Bilirubin Urine Negative (Negative); Blood Urine Negative (Negative); Color Urine Yellow; Glucose Urine UA 3+ (Negative); Ketones Urine 4+ (Negative); Leukocyte Esterase Urine Negative (Negative); Nitrite Urine Negative (Negative); Protein Urine Negative (Negative); Specific Gravity Urine 1.031 (1.000-1.030); Urobilinogen Urine Negative (Negative)
[2023-03-05 13:21] LABS: Prothrombin Time 10.9 Seconds (9.0-12.0)
[2023-03-05 13:25] LABS: Thyroid Stimulating Hormone 0.252 uIu/ml (0.300-4.500)
--- NOTE | 2023-03-05 13:36 | CT Scan Report ---
CT head/brain wo con CLINICAL HISTORY: 72 years-old Female with weakness. Acute weakness TECHNIQUE: Multiple axial CT images of the head were obtained without contrast. A dose lowering tech nique was utilized adhering to the principles of ALARA. COMPARISON: 12/05/2022. FINDINGS: No acute intracranial hemorrhage, midline shift, intracranial mass, hydrocephalus, territorial ischem ia or abnormal extra-axial collection. Involutional changes with chronic microvascular ischemic disea se. The calvarium is intact. Right-sided lens repair. The paranasal sinuses, mastoid air cells, and middl e ear cavities are clear. IMPRESSION: No acute intracranial abnormality. ACT 112: Negative or not required by law. The above report was generated using voice recognition software. It may contain grammatical, syntax o r spelling errors. Electronically signed by: Maykel Lainez M.D. 03/05/2023 1:34 PM
--- NOTE | 2023-03-05 13:40 | CT Scan Report ---
CT OF THE ABDOMEN AND PELVIS WITHOUT CONTRAST CLINICAL HISTORY: Vomiting. Possible obstruction. COMPARISON STUDY: CT of the abdomen and pelvis October 14, 2022 and KUB January 27, 2023. TECHNIQUE: Axial images of the abdomen and pelvis were obtained without IV contrast. Images were revi ewed in the axial, sagittal, and coronal planes. Automated exposure control was utilized for the jose armando dy. A dose lowering technique was utilized adhering to the principles of ALARA. FINDINGS: Lung bases are unremarkable. Evaluation of the abdomen and pelvis is suboptimal on this une nhanced exam. No pneumatosis, free air or portal venous gas is present. There is no biliary ductal di latation status post cholecystectomy. There are no urinary calculi. No hydronephrosis is present. Spl een, adrenal glands and pancreas are unremarkable. There is no evidence for a bowel obstruction. Boyds isak diverticulosis is present without evidence for acute diverticulitis. There is no lymphadenopathy. No fluid collection is present. No acute fractures are identified within visualized skeletal structu res. IMPRESSION: 1. No acute process within the abdomen or pelvis on unenhanced exam. 2. No bowel obstruction. 3. Colonic diverticulosis. No evidence for acute diverticulitis. ACT 112: Negative or not required by law. Electronically signed by: Jeffry Morgan M.D. 03/05/2023 1:39 PM
[2023-03-05 14:03] LABS: T4 Free Thyroxine 1.23 ng/dl (0.61-1.60)
[2023-03-05] MEDS ORDERED: LACTATED RINGER'S 1,000 ML IV ONE (14:12)
[2023-03-05 14:54] LABS: Alanine Aminotransferase 18 U/L (7-52); Albumin Globulin Ratio 1.6 (0.9-2); Albumin Level 4.4 gm/dl (3.4-5.0); Alkaline Phosphatase 70 U/L (34-104); Anion Gap 21 (3-11); Aspartate Aminotransferase 21 U/L (13-39); BUN Creatinine Ratio 76.1 (10-20); Blood Urea Nitrogen 51 mg/dl (6-23); Calcium 10.2 mg/dl (8.6-10.3); Carbon Dioxide 19 mmol/L (21-32); Chloride 99 mmol/L (98-107); Creatine Kinase 50 U/L (26-192); Est GFR (African American) 101.8 ml/min; Est GFR (Non-African American) 87.8 ml/min; Globulin 2.8 gm/dl (2.5-4.0); Glucose 141 mg/dl (70-99(Fasting)); Magnesium 2.1 mg/dl (1.7-2.4); Potassium 4.2 mmol/L (3.5-5.1); Sodium 139 mmol/L (136-145); Total Protein 7.2 gm/dl (6.0-8.3); Troponin I High Sensitivity 6.6 pg/ml (0-14)
--- NOTE | 2023-03-05 15:03 | Electrocardiogram Report ---
Test Reason : Blood Pressure : / mmHG Vent. Rate : 083 BPM Atrial Rate : 083 BPM P-R Int : 136 ms QRS Dur : 114 ms QT Int : 390 ms P-R-T Axes : 075 053 028 degrees QTc Int : 458 ms Normal sinus rhythm Incomplete right bundle branch block T wave abnormality, consider anterior ischemia Abnormal ECG When compared with ECG of 27-JAN-2023 13:53, Nonspecific T wave abnormality no longer evident in Lateral leads Confirmed by Wil Alvarez ([id number]) on 03/05/2023 3:03:19 PM Referred By: Jennifer Martin Confirmed By:Adrián Alvarez
[2023-03-05] MEDS ORDERED: PANTOprazole 40 MG in SYRINGE 0 ML IV ONE (15:22)
[2023-03-05] MEDS ORDERED: FAMOTIDINE 20MG IV PUSH 20 MG/5 ML SYR IV STA (15:22)
--- NOTE | 2023-03-05 16:04 | History & Physical Report ---
Date of Service March 05, 2023 Assessment & Plan (1) Adult failure to thrive: Plan: -Admit to med/tele -Currently stable but severely malnourished and in constant pain -At this time the patient's clinical status has declined substantially over the past year -She is severely malnourished with evidence of ketosis -Initial lactate elevated at 2.2, has clear to 1.3 on 2 hour repeat -At this time the patient cannot keep solids or liquids down -Will consult [facility] for re-evaluation and further discussions regarding GOC moving forward -Will also consult our Manager Printing and Palliative medicine -PT/OT consults placed -Will keep NPO except meds tonight, continue maintenance LR while NPO -Will give her 0.5 mg IV morphine now for severe neuropathic pain >Then continue with prn IV tylenol, can use additional small doses of morphine if needed -Monitor intake and output q6h, daily weights -BL SCD's and Sub-Q lovenox for DVT PPX -AM CBC, CMP, mag (2) Gastroparesis: Plan: -Officially diagnosed at [facility] last month on GES -Unable to keep food or liquids down -NPO, GI and speech consults -PRN Reglan for nausea/vomiting (3) Munoz's esophagus: Plan: -Will continue with 40 mg IV Protonix daily while NPO (4) SVT (supraventricular tachycardia): Plan: -Currently stable -Continue metoprolol (5) DM type 2 with diabetic peripheral neuropathy: Plan: -Hold metformin and Jardiance -Monitor BSG q6h while NPO, goal is 110-160 -Start with 5 units lantus BID as she typically takes 10 units HS -CF of 50 q6h while NPO, hold CR for now to avoid hypoglycemia -Adjust regimen as needed -AM A1C ordered (6) HTN (hypertension): Plan: -Stable -Continue lisinopril (7) Dyslipidemia: Plan: -Hold statin for now until CK is back (8) PTSD (post-traumatic stress disorder): Plan: -Continue Venlafaxine and Buspar (9) CORINA (obstructive sleep apnea): Plan: -Will hold HS CPAP at this time as she is high risk for aspiration with her current symptoms Plan The patient was discussed with Dr. Geronimo at the time of the admission History of Present Illness Chief Complaint: Nausea/vomiting, dehydration, weakness Primary Care Provider: MARGOTH Craig Agnes is a 72 year old female with a PMH significant for hiatial hernia S/P Saji fundoplication in 2020, Munoz's esophagus, SSS S/P pacemaker placement in 2021, DMII, previous CVA, tardive dyskinesia, and chronic nausea/vomiting who presented to the [facility] ED on 03/05/23 for intractable nausea/vomiting, dehydration, and generalized weakness. In the ED the patient was initially tachycardic at 128 but otherwise stable. Labs were significant for an initial lactate of 2.2, BUN of 51, AG of 21 with bicarb of 19, and covid [address] of the head was read as no acute findings. Chest xray was read as no acute process. CT of the abd/pelvis wo con was read as "1. No acute process within the abdomen or pelvis on unenhanced exam. 2. No bowel obstruction. 3. Colonic diverticulosis. No evidence for acute diverticulitis.". Prior to admission the patient was given 1500 mL NSS, 1L LR, a dose of cefepime, 1gm IV tylenol, 4mg IV zofran, 40 mg IV pantoprazole, and 20 mg IV famotidine. Per chart review, the patient was recently seen in the GI clinic on 01/10 after her last EGD on 12/17/22. Findings were consistent with short segment munoz's esophagus; therapeutic dilation was also performed at that time. At the time of the exam the patient was lying in bed and appears uncomfortable, her daughter/POA is also sitting bedside, history was obtained from both. Since her fundoplication in 2020 the patient has had ongoing issues with intractable nausea/vomiting. She has lost approximately 130 lbs since then. She had a gastric emptying study last month at [facility] which was positive, per the patient's daughter. The patient has an appointment with a Gastroparesis specialist down in [place] on May 05. Since 02/27 the patient has had intractable nausea and vomiting after eating. They reported that she is even vomiting protein shakes at this point. The patient denies chocking on any emesis or having in go down her trachea. She denies recent fever, chills, chest pain, SOB, abd pain, hematemesis, coffee ground emesis, dysuria, hematuria, increased urinary frequency, diarrhea, LE swelling, and recent trauma. She has had progressive generalized weakness to the point that she is too weak to get out of bed. Her peripheral neuropathy has been exacerbated over the past 2 weeks. The patient looked at me and said "I just want the pain to go away". Due to the patient's severe clinical decline I had a long discussion with she and her daughter regarding goals of care and their wishes moving forward. I explained that I am concerned she is so malnourished to the point where she may not recover. At this time I don't think she would be able to wait until May 05 to see her Gastroparesis specialist if her symptoms remain this severe. The patient has a living will and is a DNR/DNI. I explained that I would like to have the [facility] team evaluate her again and have her evaluated by our Manager Printing to see what options she has at this point. I discussed the possibility of having the patient evaluated by Palliative Medicine, the patient and her daughter are in agreement. I also spoke to the patient and her daughter regarding the possible need for Hospice on discharge due to her clinical decline and poor quality of life. The patient and her daughter expressed that they would like to discuss hospice if the patient has a poor prognosis moving forward. We explained that we will try and treat the patient's pain as best we can, but opioids will worsen her gastroparesis in the long run, the patient and her daughter expressed understanding. Please refer to Dr. Geronimo's attestation for any changes to the treatment plan Allergies Allergy/AdvReac Type Severity Reaction Status Date / Time adhesive Allergy Intermediate ITCHY RASH Verified 01/27/23 16:00 camphor [From Sarna Original] Allergy Intermediate ITCHY, Verified 01/27/23 16:01 BLISTERY RASH latex Allergy Intermediate itching Verified 01/27/23 16:00 menthol [From Sarna Original] Allergy Intermediate ITCHY, Verified 01/27/23 16:01 BLISTERY RASH methyl salicylate Allergy Intermediate ITCHY, Verified 01/27/23 16:00 [From Icy Hot] BLISTERING RASH nickel Allergy Intermediate swelling Verified 01/27/23 16:00 and redness sulfamethoxazole [Bactrim] Allergy Intermediate THROAT Verified 01/27/23 16:00 FELT FULL, MOUTH ULCERS trimethoprim [Bactrim] Allergy Intermediate THROAT Verified 01/27/23 16:00 FELT FULL, MOUTH ULCERS chlorpromazine Allergy Unknown CAN'T Verified 01/27/23 16:00 REMEMBER aspirin [From Aggrenox] AdvReac Intermediate MADE Verified 01/27/23 16:00 HEADACHE WORSE cyclobenzaprine AdvReac Intermediate psych Verified 01/27/23 16:00 [From Flexeril] complications dipyridamole [From Aggrenox] AdvReac Intermediate MADE Verified 01/27/23 16:00 HEADACHE WORSE loratadine AdvReac Intermediate AGITATED, Verified 01/27/23 16:00 IF CONTAINS DECONGESTANT--BECOMES MEAN oxycodone AdvReac Intermediate NAUSEA/VOMI Verified 01/27/23 16:00 TING prazosin AdvReac Intermediate ABD Verified 01/27/23 16:00 PAIN/NAUSEA/VOMITING Home Medications Medication Instructions Recorded Confirmed Type albuterol sulfate 90 mcg/actuation 2 puff inhalation Q6H PRN 09/25/22 03/05/23 Rx aerosol inhaler (Proventil HFA) shortness of breath or wheezing #8.5 grams pen needle, diabetic 32 gauge x #100 ea 10/03/22 03/05/23 Rx 5/32" (BD Ultra-Fine Shreya Pen Needle) blood sugar diagnostic (YouDatauch #100 ea 10/30/22 03/05/23 Rx Ultra Test strips) gabapentin 100 mg capsule 100 mg PO QPM 11/11/22 03/05/23 History gabapentin 300 mg capsule 300 mg PO TID 11/11/22 03/05/23 History pantoprazole 40 mg tablet,delayed 40 mg PO QAM 11/11/22 03/05/23 History release (Protonix) blood-glucose meter #1 ea 11/13/22 03/05/23 Rx lancets (YouDatauch UltraSoft #200 ea 11/18/22 03/05/23 Rx Lancets) metoprolol tartrate 25 mg tablet 12.5 mg PO DAILY 12/04/22 03/05/23 History aspirin 81 mg tablet,delayed 81 mg PO QAM 12/11/22 03/05/23 History release (Adult Low Dose Aspirin) atorvastatin 40 mg tablet 40 mg PO QAM 12/11/22 03/05/23 History buspirone 5 mg tablet See Rx Instructions .Route .COMPLEX 12/11/22 03/05/23 History cholecalciferol (vitamin D3) 50 50 mcg PO QAM 12/11/22 03/05/23 History mcg (2,000 unit) capsule empagliflozin 25 mg tablet 25 mg PO QAM 12/11/22 03/05/23 History (Jardiance) fluticasone propionate 50 2 spray intranasal DAILY PRN 12/11/22 03/05/23 History mcg/actuation nasal Allergy Symptoms spray,suspension (Flonase Allergy Relief) blood sugar diagnostic (OneTouch #100 ea 12/16/22 03/05/23 Rx Verio test strips) insulin glargine 100 unit/mL (3 10 unit subcut QPM 01/02/23 03/05/23 History mL) subcutaneous pen (Lantus Solostar U-100 Insulin) metformin 1,000 mg tablet 1,000 mg PO BID 01/02/23 03/05/23 History lisinopril 10 mg tablet 5 mg PO QAM 01/27/23 03/05/23 History venlafaxine 75 mg capsule,extended 75 mg PO DAILY 03/05/23 03/05/23 History release 24 hr Past Med/Surg History Medical History Anxiety Asthma, mild persistent inhaler daily/prn, nebulizer prn Dehydration recently admitted to [facility] for this (12/04/22) Depression DM type 2 with diabetic peripheral neuropathy Dyslipidemia GERD with esophagitis GERD and medium-sized hiatus hernia with associated Aravind's erosions (dx [address] Portillo) s/p lap Saji Fundoplication by Dr. Peralta [place] [facility] [place] History of COVID-19 diagnosed 08/2022--admitted to [facility]-- HTN (hypertension) Intractable nausea and vomiting Iron deficiency anemia Major depressive disorder Metabolic acidosis CORINA (obstructive sleep apnea) device recalled and never got another device Osteoarthritis PTSD (post-traumatic stress disorder) RLS (restless legs syndrome) SSS (sick sinus syndrome) Stroke 2002--due to high blood pressure---speech deficit, otherwise no other issues--was cleared from neurologist Tardive dyskinesia Vitamin D deficiency Surgical History Amputation toe Hammer toe History of appendectomy History of bilateral oophorectomy History of bladder surgery vaginal sling History of bunionectomy History of cardiac cath "a long time ago"--no stents placed History of cataract surgery right History of cholecystectomy History of colonoscopy History of dilatation and curettage History of esophagogastroduodenoscopy (EGD) History of hysterectomy History of knee replacement bilateral History of repair of hiatal hernia History of tonsillectomy History of tooth extraction Pacemaker medtronic--placed 01/2022 @ [facility]--follows S/P cardiac pacemaker procedure medtronic S/P cervical spinal fusion normal ROM S/P repair of paraesophageal hernia Status post rotator cuff repair Family History Daughter Cervical cancer Father Gallbladder cancer Colorectal cancer Aunt Diabetes Breast cancer Brother Heart disease Suicide Mother Schizophrenia Suicide Grandmother (Paternal) Breast cancer Grandfather (Paternal) Myocardial infarction Other Family history not known due to adoption Denies family history of Ovarian cancer Prostate cancer Social History Smoking Status: Never smoker Second Hand Exposure: No; Do You Dip or Chew Tobacco: No; Hx Alcohol Use: No Hx Substance Use: No Preferred Language: Colombian Communication Ability: Impaired Visual Impairment: Limited Hearing Ability: Normal Ripsawyer Required: No Beliefs That Will Affect Care: None marital status: / Current Living Situation: Family Current Living Situation Comment: [facility] current occupational status: retired How many Children do You have: 0 Other Information That Helps Us Care for You: No Feels Safe at Home: Yes Safety Concerns: Feels Safe At This Time Childhood Exposure to Second-Hand Smoke: Yes Diet: low carbohydrate and regular caffeine: Yes during the past year weight has: remained stable Dental Care, Regularly: Yes Physical Activity Frequency: Does not Exercise Seatbelt Use: always Sunscreen Use: Yes Do you think of yourself as: straight/heterosexual Gender Identity: Female Assistive Devices: Glasses Physical Exam Physical Exam: Physical Exam: General: In distress due to pain, severely malnourished, older than stated age, HEENT: Normocephalic, atraumatic, no scleral icterus, pupils around round, symmetrical, and reactive to light, dried vomit on the lateral borders of the mouth, Dry mucus membranes, trachea midline, no thyromegaly Chest/Pulm: No respiratory distress, symmetrical chest expansion, clear breath sounds throughout Cardiac: RRR, no murmurs noted Abdomen: Negative for ascites and bruising, normoactive bowel sounds, soft, non-tender to palpation throughout Musculoskeletal: No acute trauma, patient able to move upper and lower extremities voluntarily but with symmetrical weakness in all extremities Extremities: Radial, dorsalis pedis, and posterior tibial pulses are intact and symmetrical, no edema noted in the BL LE's Skin: Warm, dry, no rashes , lesions, or scars noted Neuro: Alert and oriented to person, place, month, year, and president, no focal defects, no tremors noted Psych: Polite and cooperative during the exam Results & Data Results & Data Vital Signs (Past 12 Hours) Vital Signs Temp Pulse Resp BP BP BP Pulse Ox 03/05/23 11:07 17 122/74 122/74 99 03/05/23 12:20 83 03/05/23 11:07 37.1 C 128 H 119/74 97 O2 Del Method O2 Flow Rate 03/05/23 11:07 Nasal Cannula 3 03/05/23 12:20 03/05/23 11:07 Room Air Laboratory Results Abnormal lab results 03/05/23 03/05/23 03/05/23 Range/Units 12:00 12:00 12:00 MPV 9.2 L (9.4-12.4) fL Neut # (Auto) 9.15 H (1.40-6.50) K/uL Lymph # (Auto) 0.96 L (1.2-3.4) K/uL Carbon Dioxide 19 L (21-32) mmol/L Anion Gap 21 H (3-11) BUN 51 H (6-23) mg/dl BUN/Creatinine Ratio 76.1 H (10-20) Glucose 141 H (70-99(Fasting)) mg/dl Lactate 2.2 H* (0.4-2.0) mmol/L TSH (0.300-4.500) uIu/ml Ur Specific Stanford (1.000-1.030) Urine Glucose (UA) (Negative) Urine Ketones (Negative) 03/05/23 03/05/23 Range/Units 12:00 12:45 MPV (9.4-12.4) fL Neut # (Auto) (1.40-6.50) K/uL Lymph # (Auto) (1.2-3.4) K/uL Carbon Dioxide (21-32) mmol/L Anion Gap (3-11) BUN (6-23) mg/dl BUN/Creatinine Ratio (10-20) Glucose (70-99(Fasting)) mg/dl Lactate (0.4-2.0) mmol/L TSH 0.252 L (0.300-4.500) uIu/ml Ur Specific Stanford 1.031 H (1.000-1.030) Urine Glucose (UA) 3+ H (Negative) Urine Ketones 4+ H (Negative) Diagnostic Findings Chest X-Ray 03/05/23 11:34 XR chest 1V portable HISTORY: 72 years-old Female weakness acute weakness COMPARISON: 01/27/2023 TECHNIQUE: AP view of the chest FINDINGS: Cardiac silhouette is enlarged. Dual lead left subclavian pacer. Atherosclerosis of the aorta. Left atrial septal occlusion device. No pneumothorax, pleural effusion, airspace consolidation or pulmonary edema. Degenerative changes of the shoulders and spine. Cholecystectomy. Cervical spinal fusion hardware. Chronic deformity of the distal right clavicle. IMPRESSION: No acute process. ACT 112: Negative or not required by law. The above report was generated using voice recognition software. It may contain grammatical, syntax or spelling errors. Electronically signed by: Maykel Lainez M.D. 03/05/2023 12:[address] 03/05/23 11:48 CT head/brain wo con CLINICAL HISTORY: 72 years-old Female with weakness. Acute weakness TECHNIQUE: Multiple axial CT images of the head were obtained without contrast. A dose lowering technique was utilized adhering to the principles of ALARA. COMPARISON: 12/05/2022. FINDINGS: No acute intracranial hemorrhage, midline shift, intracranial mass, hydrocephalus, territorial ischemia or abnormal extra-axial collection. Involutional changes with chronic microvascular ischemic disease. The calvarium is intact. Right-sided lens repair. The paranasal sinuses, mastoid air cells, and middle ear cavities are clear. IMPRESSION: No acute intracranial abnormality. ACT 112: Negative or not required by law. The above report was generated using voice recognition software. It may contain grammatical, syntax or spelling errors. Electronically signed by: Maykel Lainez M.D. 03/05/2023 1:34 PM Abdomen/Pelvis CT 03/05/23 11:49 CT OF THE ABDOMEN AND PELVIS WITHOUT CONTRAST CLINICAL HISTORY: Vomiting. Possible obstruction. COMPARISON STUDY: CT of the abdomen and pelvis October 14, 2022 and KUB January 27, 2023. TECHNIQUE: Axial images of the abdomen and pelvis were obtained without IV contrast. Images were reviewed in the axial, sagittal, and coronal planes. Automated exposure control was utilized for the study. A dose lowering technique was utilized adhering to the principles of ALARA. FINDINGS: Lung bases are unremarkable. Evaluation of the abdomen and pelvis is suboptimal on this unenhanced exam. No pneumatosis, free air or portal venous gas is present. There is no biliary ductal dilatation status post cholecystectomy. There are no urinary calculi. No hydronephrosis is present. Spleen, adrenal glands and pancreas are unremarkable. There is no evidence for a bowel obstruction. Colonic diverticulosis is present without evidence for acute diverticulitis. There is no lymphadenopathy. No fluid collection is present. No acute fractures are identified within visualized skeletal structures. IMPRESSION: 1. No acute process within the abdomen or pelvis on unenhanced exam. 2. No bowel obstruction. 3. Colonic diverticulosis. No evidence for acute diverticulitis. ACT 112: Negative or not required by law. Electronically signed by: Jeffry Morgan M.D. 03/05/2023 1:39 PM ECG Additional Comments: Normal sinus rhythm Incomplete right bundle branch block T wave abnormality, consider anterior ischemia Abnormal ECG When compared with ECG of 27-JAN-2023 13:53, Nonspecific T wave abnormality no longer evident in Lateral leads Confirmed by Wil Alvarez ([id number]) on 03/05/2023 3:03:19 PM Code Status & VTE Plan Code Status DNR/DNI Supervising Physician Co-Signing Physician Notes I personally saw and examined the patient. I verified all givens points and agree with Augusto Chapa PA-C with the following exceptions and/or additions: 72 year old presents to the ER with decreased oral intake and severe generalized pain. O/E Alert, groaning in pain, pain on palpation anywhere on her body, HS RRR, Chest CTAB, Abdo soft A/P Failure to thrive - suspect generalized pain due to not being able to take her regular medications such as gabapentin. atorvastatin should be discontinued in case contributing towards myalgias but she isn't taking this recently anyway. She is severely cachectic and malnourished and mainly just wishes to be made comfortable at this time. They have just started discussions with hospice which appears appropriate since EGD showed no reversible etiology for her nausea/vomiting and she effectively needs opiates at this time to control her pain which will make her gastroparesis worse - explained to patient and daughter and agreed to discussion with palliative care for ongoing symptom management as main goal. PG Care Time/CCT Total # of Minutes Spent Total Time Spent with Patient: Total time spent is greater than 50% in coordination of care (as documented) at patient's floor/unit and/or counseling patient: Coding [place] [address] INT INP/OBS CARE 3/75MIN Patient Type Established Medical Decision Making High Complexity Diagnoses Adult failure to thrive R62.7 Gastroparesis K31.84 Munoz's esophagus K22.70 SVT (supraventricular tachycardia) I47.1 DM type 2 with diabetic peripheral neuropathy E11.42 HTN (hypertension) I10 Dyslipidemia E78.5 PTSD (post-traumatic stress disorder) F43.10 CORINA (obstructive sleep apnea) G47.33
[2023-03-05] MEDS ORDERED: MoRPHine SULFATE 2 MG/ML CARP IV STA (16:45)
[2023-03-05 17:08] LABS: C Reactive Protein < 0.50 mg/dl (0-0.5); Phosphorus 4.9 mg/dl (2.5-4.9)
[2023-03-05] MEDS ORDERED: DEXTROSE 50% 50 ML SYRINGE IV PRN (17:11)
[2023-03-05] MEDS ORDERED: CARBOHYDRATES FOR HYPOGLYCEMIA PO PRN (17:11)
[2023-03-05] MEDS ORDERED: GLUCAGON FOR INJ 1 MG VIAL SQ PRN (17:11)
[2023-03-05] MEDS ORDERED: GLUCOSE 10 TAB/TUBE PO PRN (17:11)
[2023-03-05] MEDS ORDERED: GLUCOSE 40% GEL 15 GM TUBE PO PRN (17:11)
[2023-03-05] MEDS ORDERED: ALBUTEROL HFA 8 GM INHALER INH PRN (18:42)
[2023-03-05] MEDS ORDERED: METOCLOPRAMIDE HCL INJ 5 MG/ML 2 ML VIAL IV PRN (18:42)
[2023-03-05] MEDS: LACTATED RINGER'S 1,000 ML IV SCH (20:08)
[2023-03-05] MEDS: ENOXAPARIN INJ 40 MG/0.4 ML SYR SQ SCH (20:11)
[2023-03-05] MEDS: ACETAMINOPHEN 1,000 MG/100 ML VIAL IV PRN (20:14)
[2023-03-05] MEDS: GABAPENTIN 300 MG CAP PO SCH (20:18)
[2023-03-05] MEDS: INSULIN ASPART PER UNIT CHARGE SC SCH (20:19)
[2023-03-05] MEDS: LANTUS PER UNIT CHARGE SQ SCH (20:22)
[2023-03-05] MEDS: busPIRone 5 MG TAB PO SCH (20:22)
[2023-03-05] MEDS ORDERED: INSULIN ASPART PER UNIT CHARGE SC SCH (21:00)
[2023-03-06] MEDS ORDERED: MoRPHine SULFATE 2 MG/ML CARP IV STA
[2023-03-06] MEDS: INSULIN ASPART PER UNIT CHARGE SC SCH ×4 (00:04→18:09)
[2023-03-06] MEDS: ACETAMINOPHEN 1,000 MG/100 ML VIAL IV PRN (05:17)
[2023-03-06 07:13] LABS: Albumin Globulin Ratio 1.5 (0.9-2); Albumin Level 3.4 gm/dl (3.4-5.0); BUN Creatinine Ratio 66.1 (10-20); Bilirubin,Total 0.8 mg/dl (0.2-1.0); Creatinine Clr Calc Pharmacy 71.1 ml/min; Est GFR (African American) 104.4 ml/min; Est GFR (Non-African American) 90.1 ml/min; Globulin 2.2 gm/dl (2.5-4.0); Magnesium 1.8 mg/dl (1.7-2.4); Potassium 3.9 mmol/L (3.5-5.1); Total Protein 5.6 gm/dl (6.0-8.3)
[2023-03-06 07:25] LABS: Basophils # (auto) 0.06 K/uL (0-0.2); Basophils % (auto) 0.6 %; Eosinophils # (auto) 0.03 K/uL (0-0.50); Eosinophils % (auto) 0.3 %; Hemoglobin 10.6 g/dl (12.0-16.0); Immature Granulocytes # (auto) 0.05 K/uL (0.01-0.20); Immature Granulocytes % (auto) 0.5 %; Lymphocytes # (auto) 1.49 K/uL (1.2-3.4); Lymphocytes % (auto) 13.7 %; Mean Corpuscular Hemoglobin 28.9 pg (25.0-34.0); Mean Corpuscular Hgb Conc 33.1 g/dL (32.0-36.0); Mean Corpuscular Volume 87.2 fL (80.0-100.0); Mean Platelet Volume 9.1 fL (9.4-12.4); Monocytes # (auto) 1.27 K/uL (0.11-0.59); Monocytes % (auto) 11.7 %; Neutrophils # (auto) 7.96 K/uL (1.40-6.50); Neutrophils % (auto) 73.2 %; Platelet Count 272 K/uL (130-400); RDW Coefficient of Variation 13.1 % (11.5-14.5); RDW Standard Deviation 41.2 fL (36.4-46.3); Red Blood Count 3.67 M/uL (4.20-5.40); White Blood Count 10.86 K/ul (4.8-10.8)
[2023-03-06 08:27] LABS: Estimated Average Glucose 171 mg/dl; Hemoglobin A1C 7.6 % (4.5-5.6)
[2023-03-06] MEDS ORDERED: METOPROLOL TARTRATE 25 MG TAB PO SCH (09:00)
--- NOTE | 2023-03-06 09:14 | Palliative Care Consultation ---
Date of Consultation March 06, 2023 Assessment & Plan (1) Palliative care by specialist: Met with pt. Provided overview of Palliative Medicine, a subspecialty that provides specialized medical care for people living with a serious illness by offering a focus on quality of life. Palliative Medicine is often conflated with hospice: I advised patient/family that Palliative and hospice can be partners but we are not the same. It is important to understand the difference so that we may be informed, and not afraid. Palliative Medicine works to improve QOL through reduction of symptom burden/more control over their illness, for both the patient and family. Palliative medicine clinicians are board certified, s pecially-trained and another member of the patient's medical care team. We often provide an extra layer of support because our care is based on the needs of the patient, not the prognosis; as such, it's appropriate at any age/advancing stage of a serious illness and can be provided along with curative treatment. Palliative Medicine clinicians are also trained in advanced communication methodologies, to facilitate complex discussions about advanced illness planning, which are needed to help assure that the treatment choices match the patient's goals, aka delivering Goal Concordant care. Finally, we discussed that hospice is a visiting nurse service that focuses on care delivered at the very end of life for patients with terminal illness, with life expectancy less than 6 month. (2) Advanced care planning/counseling discussion: ACP discussion with pt at bedside x 45min We reviewed that all chronic/progressive disease has a declining trajectory over time where facets of patient self-identity and independence are lost. Every acute event leads to a further decline, resulting- many times, in a new baseline. Advised that the greatest priority is to determine what matters most to pt, then family and to develop a plan of care that is aligned with those priorities.Advance illness planning conversations are conducted to review goals and expectations, support shared decision-making, and engage in disease specific advance care planning. This type of advance care planning is sometimes referred to as 'preparedness planning. It is used to review the risks and benefits of offered therapy, elicit and deepen understanding of the underlying illness and therapeutic options, ensure adequate psychosocial support, address existential concerns and coping, and engage in end-of-life planning. Preparedness planning is not meant to replace informed consent discussions. Palliative medicine plays a role in the process of deepening a patients understanding of this specific medical intervention and ensuring this treatment aligns with their goals of care remains a central tenet of the planning conversation. Agnes tells me she and dtr have been discussing home hospice. Dtr lives with agnes at Agnes's home in [facility]. She wants to return home and not come back to hospital. She does not wan rehab. She states she and dtr have discussed this and dtr will be in agreement. Agnes states she is suffering. She no longer enjoys anything about her life, has no QOL and everything always hurts. She has not been able to eat or drink sufficiently. She is chronically dehydrated, weak and frustrated. Nothing to date has helped. She does not believe there is a cure for her issues at this junction. She wants to have more pain relief and comfort. She is open to hospice. She says she just wants to be comfortable and be at home, in peace. We discussed the goals of hospice as a patient service and the goals of care; we discussed EOL trajectories and transitions rodolfo the emotional impact of realizing mortality as a concrete reality from prior abstract considerations. Pt was reassured that no matter where they are along this trajectory, they are not alone - their medical team will remain by their side through their journey. Discussed the pros/cons of accepting help when especially weakened and distressed by pain-which would also help provide relief/decrease caregiver burden/strain. I provided education about the hospice benefit: an interdisciplinary program offered by nurses, nurses aides, social workers, chaplains and a director medical affairs for patients with a terminal condition and a life expectancy of less than 6 months. This is covered by Medicare at 100%/no out of pocket expense to patient and all meds/supplies needed by patient for the reason they are on hospice are paid for/covered by hospice. The goal is assure quality of life of the patient in their home setting (home, detention, inpatient hospice setting) by providing symptoms management, psychosocial and spiritual support. However, they cannot offer 24 hours care and if the family is unable to provide that care, they will have to consider personal care with out of pocket cost vs. detention placement. We discussed the goals of hospice as a patient service and the goals of care; we discussed EOL trajectories and transitions rodolfo the emotional impact of realizing mortality as a concrete reality from prior abstract considerations. Pt was reassured that no matter where they are along this trajectory, they are not alone - their medical team will remain by their side through their journey. Discussed the pros/cons of accepting help when especially weakened and distressed by pain-which would also help provide relief/decrease caregiver burden/strain. (3) Generalized pain: Agnes states pain is all over and uncontrolled. IV Morphine previously given in 2mg dose was helpful but id not last. She wants better pain relief. (4) Weakness generalized: (5) Refractory nausea and vomiting: (6) Gastroparesis: (7) Munoz's esophagus: (8) DM type 2 with diabetic peripheral neuropathy: (9) GERD with esophagitis: (10) PTSD (post-traumatic stress disorder): (11) SVT (supraventricular tachycardia): (12) SSS (sick sinus syndrome): Plan * Will add Roxanol 5mg PO q3h prn and IV MS 2mg q4h prn very severe BTP unrelieved by oral meds * Pt wants home with hospice, no rehab. She feels dtr is in agreement but dtr presently not at bedside to confirm. I will call and update records after I speak with dtr. Of note, pt states dtr will be here tomorrow to visit, so perhaps final arrangements can be confirmed at that time * I have updated and reviewed case with Dr Nesbitt. Thank you for allowing us to participate in the ongoing care of this patient. Please don't hesitate to call or page with any additional concerns. Dr. Carley Bonilla DNP Director, Palliative Care History of Present Illness Reason for Consultation: goals of care, severe gastroparesis Attending Physician: Marcial Nesbitt MD History of Present Illness Agnes David is an unfortunate 72yo female with very severe, [id number] gastroparesis. She is in severe pain. She cannot tolerate an PO. She is markedly dehydrated, ketotic and poor PS. PMH: hiatial hernia S/P Saji fundoplication in 2020, Munoz's esophagus, SSS S/P pacemaker placement in 2021, DMII, previous CVA, tardive dyskinesia, and chronic nausea/vomiting She came to [facility] ED last night with c/o intractable n/v, dehydration and progressive generalized weakness. She is covid negative. CT head negative. CXR --> no acute process. CT of the abd/pelvis wo con reported: "1. No acute process within the abdomen or pelvis on unenhanced exam. 2. No bowel obstruction. 3. Colonic diverticulosis. No evidence for acute diverticulitis." per admitting note: "patient was recently seen in the GI clinic on 01/10 after her last EGD on 12/17/22. Findings were consistent with short segment munoz's esophagus; therapeutic dilation was also performed at that time. At the time of the exam the patient was lying in bed and appears uncomfortable, her daughter/POA is also sitting bedside, history was obtained from both. Since her fundoplication in 2020 the patient has had ongoing issues with intractable nausea/vomiting. She has lost approximately 130 lbs since then. She had a gastric emptying study last month at [facility] which was positive, per the patient's daughter. The patient has an appointment with a Gastroparesis specialist down in [place] on May 05. Since 02/27 the patient has had intractable nausea and vomiting after eating. They reported that she is even vomiting protein shakes at this point. The patient denies chocking on any emesis or having in go down her trachea. She denies recent fever, chills, chest pain, SOB, abd pain, hematemesis, coffee ground emesis, dysuria, hematuria, increased urinary frequency, diarrhea, LE swelling, and recent trauma. She has had progressive generalized weakness to the point that she is too weak to get out of bed. Her peripheral neuropathy has been exacerbated over the past 2 weeks. The patient looked at me and said "I just want the pain to go away". Due to the patient's severe clinical decline I had a long discussion with she and her daughter regarding goals of care and their wishes moving forward. I explained that I am concerned she is so malnourished to the point where she may not recover. At this time I don't think she would be able to wait until May 05 to see her Gastroparesis specialist if her symptoms remain this severe. The patient has a living will and is a DNR/DNI. I explained that I would like to have the [facility] GI team evaluate her again and have her evaluated by our Mental Health Specialist to see what options she has at this point. I discussed the possibility of having the patient evaluated by Palliative Medicine, the patient and her daughter are in agreement. I also spoke to the patient and her daughter regarding the possible need for Hospice on discharge due to her clinical decline and poor quality of life. The patient and her daughter expressed that they would like to discuss h ospice if the patient has a poor prognosis moving forward. We explained that we will try and treat the patient's pain as best we can, but opioids will worsen her gastroparesis in the long run, the patient and her daughter expressed understanding." Allergies Allergy/AdvReac Type Severity Reaction Status Date / Time adhesive Allergy Intermediate ITCHY RASH Verified 01/27/23 16:00 camphor [From Sarna Original] Allergy Intermediate ITCHY, Verified 01/27/23 16:01 BLISTERY RASH latex Allergy Intermediate itching Verified 01/27/23 16:00 menthol [From Sarna Original] Allergy Intermediate ITCHY, Verified 01/27/23 16:01 BLISTERY RASH methyl salicylate Allergy Intermediate ITCHY, Verified 01/27/23 16:00 [From Icy Hot] BLISTERING RASH nickel Allergy Intermediate swelling Verified 01/27/23 16:00 and redness sulfamethoxazole [Bactrim] Allergy Intermediate THROAT Verified 01/27/23 16:00 FELT FULL, MOUTH ULCERS trimethoprim [Bactrim] Allergy Intermediate THROAT Verified 01/27/23 16:00 FELT FULL, MOUTH ULCERS chlorpromazine Allergy Unknown CAN'T Verified 01/27/23 16:00 REMEMBER aspirin [From Aggrenox] AdvReac Intermediate MADE Verified 01/27/23 16:00 HEADACHE WORSE cyclobenzaprine AdvReac Intermediate psych Verified 01/27/23 16:00 [From Flexeril] complications dipyridamole [From Aggrenox] AdvReac Intermediate MADE Verified 01/27/23 16:00 HEADACHE WORSE loratadine AdvReac Intermediate AGITATED, Verified 01/27/23 16:00 IF CONTAINS DECONGESTANT--BECOMES MEAN oxycodone AdvReac Intermediate NAUSEA/VOMI Verified 01/27/23 16:00 TING prazosin AdvReac Intermediate ABD Verified 01/27/23 16:00 PAIN/NAUSEA/VOMITING Home Medications Medication Instructions Recorded Confirmed Type albuterol sulfate 90 mcg/actuation 2 puff inhalation Q6H PRN 09/25/22 03/05/23 Rx aerosol inhaler (Proventil HFA) shortness of breath or wheezing #8.5 grams pen needle, diabetic 32 gauge x #100 ea 10/03/22 03/05/23 Rx 5/32" (BD Ultra-Fine Shreya Pen Needle) blood sugar diagnostic (OneTouch #100 ea 10/30/22 03/05/23 Rx Ultra Test strips) gabapentin 100 mg capsule 100 mg PO QPM 11/11/22 03/05/23 History gabapentin 300 mg capsule 300 mg PO TID 11/11/22 03/05/23 History pantoprazole 40 mg tablet,delayed 40 mg PO QAM 11/11/22 03/05/23 History release (Protonix) blood-glucose meter #1 ea 11/13/22 03/05/23 Rx lancets (OneTouch UltraSoft #200 ea 11/18/22 03/05/23 Rx Lancets) metoprolol tartrate 25 mg tablet 12.5 mg PO DAILY 12/04/22 03/05/23 History aspirin 81 mg tablet,delayed 81 mg PO QAM 12/11/22 03/05/23 History release (Adult Low Dose Aspirin) atorvastatin 40 mg tablet 40 mg PO QAM 12/11/22 03/05/23 History buspirone 5 mg tablet See Rx Instructions .Route .COMPLEX 12/11/22 03/05/23 History cholecalciferol (vitamin D3) 50 50 mcg PO QAM 12/11/22 03/05/23 History mcg (2,000 unit) capsule empagliflozin 25 mg tablet 25 mg PO QAM 12/11/22 03/05/23 History (Jardiance) fluticasone propionate 50 2 spray intranasal DAILY PRN 12/11/22 03/05/23 History mcg/actuation nasal Allergy Symptoms spray,suspension (Flonase Allergy Relief) blood sugar diagnostic (OneTouch #100 ea 12/16/22 03/05/23 Rx Verio test strips) insulin glargine 100 unit/mL (3 10 unit subcut QPM 01/02/23 03/05/23 History mL) subcutaneous pen (Lantus Solostar U-100 Insulin) metformin 1,000 mg tablet 1,000 mg PO BID 01/02/23 03/05/23 History lisinopril 10 mg tablet 5 mg PO QAM 01/27/23 03/05/23 History venlafaxine 75 mg capsule,extended 75 mg PO DAILY 03/05/23 03/05/23 History release 24 hr Patient History Medical History (Updated 03/06/23 @ 13:41 by Carley Bonilla, DISHA) Advanced care planning/counseling discussion Anxiety Asthma, mild persistent inhaler daily/prn, nebulizer prn Dehydration recently admitted to [facility] for this (12/04/22) Depression DM type 2 with diabetic peripheral neuropathy Dyslipidemia Generalized pain GERD with esophagitis GERD and medium-sized hiatus hernia with associated Aravind's erosions (dx [address] Portillo) s/p lap Saji Fundoplication by Dr. Peralta at [facility] in May of 2021 History of COVID-19 diagnosed 08/2022--admitted to [facility]-- HTN (hypertension) Intractable nausea and vomiting Iron deficiency anemia Major depressive disorder Metabolic acidosis CORINA (obstructive sleep apnea) device recalled and never got another device Osteoarthritis Palliative care by specialist PTSD (post-traumatic stress disorder) Refractory nausea and vomiting RLS (restless legs syndrome) SSS (sick sinus syndrome) Stroke 2002--due to high blood pressure---speech deficit, otherwise no other is sues--was cleared from neurologist Tardive dyskinesia Vitamin D deficiency Weakness generalized Surgical History Amputation toe Hammer toe History of appendectomy History of bilateral oophorectomy History of bladder surgery vaginal sling History of bunionectomy History of cardiac cath "a long time ago"--no stents placed History of cataract surgery right History of cholecystectomy History of colonoscopy History of dilatation and curettage History of esophagogastroduodenoscopy (EGD) History of hysterectomy History of knee replacement bilateral History of repair of hiatal hernia History of tonsillectomy History of tooth extraction Pacemaker medtronic[facility]--follows S/P cardiac pacemaker procedure medtronic S/P cervical spinal fusion normal ROM S/P repair of paraesophageal hernia Status post rotator cuff repair Family History Daughter Cervical cancer Father Gallbladder cancer Colorectal cancer Aunt Diabetes Breast cancer Brother Heart disease Suicide Mother Schizophrenia Suicide Grandmother (Paternal) Breast cancer Grandfather (Paternal) Myocardial infarction Other Family history not known due to adoption Denies family history of Ovarian cancer Prostate cancer Social History Smoking Status: Never smoker Second Hand Exposure: No; Do You Dip or Chew Tobacco: No; Hx Alcohol Use: No Hx Substance Use: No Preferred Language: Syrian Communication Ability: Impaired Visual Impairment: Limited Hearing Ability: Normal Roof Designer Required: No Beliefs That Will Affect Care: None marital status: / Current Living Situation: Family Current Living Situation Comment: Lives [facility] the [facility] current occupational status: retired How many Children do You have: 0 Other Information That Helps Us Care for You: No Feels Safe at Home: Yes Safety Concerns: Feels Safe At This Time Childhood Exposure to Second-Hand Smoke: Yes Diet: low carbohydrate and regular caffeine: Yes during the past year weight has: remained stable Dental Care, Regularly: Yes Physical Activity Frequency: Does not Exercise Seatbelt Use: always Sunscreen Use: Yes Do you think of yourself as: straight/heterosexual Gender Identity: Female Assistive Devices: Glasses Review of Systems Review of Systems: All systems reviewed & are unremarkable except as noted in Subjective Physical Exam Constitutional: + acute distress, + ill appearing, + frail appearing and + malnourished Eyes: PERRL, conjunctivae normal, anicteric sclerae ENMT: Mouth: + dry oral mucous membranes, + poor dentition and + chipped teeth Neck: trachea midline, no thyromegaly Respiratory: normal respiratory effort and able to speak in complete sentences Auscultation: + diminished lung sounds, + crackles and + rhonchi Cardiovascular: Rate/Rhythm: regular rate and regular rhythm Vessels: + JVD (mild) Gastrointestinal (Abdomen): Inspection/Auscultation: + high-pitched sounds Percussion/Palpation: + abdomen tender and + guarding Musculoskeletal: generalized weakness Skin: + turgor decreased and + dry skin Neurologic: slight dysarthria, awake and alert/oriented x3; Psychiatric: Orientation: alert, oriented x 3 and cooperative Eye Contact: good eye contact Mood: + depressed mood Thought Process: clear/coherent thought process Thought Content: + hopelessness Suicidal Thoughts: denies suicidal thoughts, denies suicidal plan and denies suicidal intent Homicidal Thoughts: denies homicidal thoughts, denies homicidal plan and denies homicidal intent Cognition: recent memory grossly intact, remote memory grossly intact, attention grossly intact and language grossly intact Estimated Intelligence: consistent with education level Insight: good insight Judgment: good judgement Results & Data Vital Signs (Past 12 Hours) Vital Signs Temp Pulse Pulse Resp BP Pulse Ox O2 Del Method 03/06/23 08:48 36.5 C 72 17 94/57 L 99 Nasal Cannula 03/06/23 03:00 36.6 C 101 H 20 120/73 98 Nasal Cannula 03/06/23 00:55 94 H 03/05/23 22:00 36.6 C 99 H 20 122/66 96 Room Air O2 Flow Rate 03/06/23 08:48 2 03/06/23 03:00 2 03/06/23 00:55 03/05/23 22:00 Laboratory Results data reviewed, see HPI Diagnostic Findings data reviewed, see HPI PG Care Time/CCT Total # of Minutes Spent Total Time Spent: 90 Total Time Spent with Patient: Total time spent is greater than 50% in coordination of care (as documented) at patient's floor/unit and/or counseling patient: 45min Mary CP 45min in consultation/chart revuew, d/w teams and nursing [place] [address] IN/OBS CONSULT LVL 5,80M Patient Type New History Comprehensive Exam Comprehensive Medical Decision Making High Complexity Diagnoses Palliative care by specialist Z51.5 Advanced care planning/counseling discussion Z71.89 Generalized pain R52 Weakness generalized R53.1 Refractory nausea and vomiting R11.2 Gastroparesis K31.84 Munoz's esophagus K22.70 DM type 2 with diabetic peripheral neuropathy E11.42 GERD with esophagitis K21.00 PTSD (post-traumatic stress disorder) F43.10 SVT (supraventricular tachycardia) I47.1 SSS (sick sinus syndrome) I49.5
[2023-03-06] MEDS: ASPIRIN 81 MG ECTAB PO SCH (09:19)
[2023-03-06] MEDS: LACTATED RINGER'S 1,000 ML IV SCH (09:19)
[2023-03-06] MEDS: GABAPENTIN 300 MG CAP PO SCH ×3 (09:20→19:37)
[2023-03-06] MEDS: lisinopril 5 MG TAB PO SCH (09:20)
[2023-03-06] MEDS: VENLAFAXINE HCL XR 75 MG CAPXR PO SCH (09:20)
[2023-03-06] MEDS: busPIRone 5 MG TAB PO SCH ×2 (09:20→19:37)
[2023-03-06] MEDS: LANTUS PER UNIT CHARGE SQ SCH ×2 (09:21→19:37)
[2023-03-06] MEDS: PANTOprazole 40 MG in SYRINGE 0 ML IV SCH (10:35)
[2023-03-06] MEDS: METOCLOPRAMIDE HCL INJ 5 MG/ML 2 ML VIAL IV SCH ×3 (10:35→20:54)
--- NOTE | 2023-03-06 10:47 | Gastrointestinal Consultation ---
Date of Consultation March 06, 2023 Assessment & Plan (1) Refractory nausea and vomiting: (2) Gastroparesis: Patient is a 72 y.o. female with gastroparesis and Cortez's esophagus admitted with intractable nausea with vomiting and failure to thrive. -Given neurological side effects, including tremor and concerns for stroke like sx while on this medication previously, would not recommend ongoing use of Reglan. -Maximize antiemetic therapy. -Continue supportive management with IV fluid resuscitation. -Consider diet advancement to clear liquids to determine tolerability. -Patient is scheduled for evaluation by GI motility at a tertiary center in April. Thank you for allowing us to participate in the care of this patient. If you have any questions or concerns, please do not hesitate to contact us. Supervising Physician Co-Signing Physician Notes Agree with MARGOTH Santacruz as above Abd: Soft, NT, ND, +BS Continue current therapy and supportive care History of Present Illness Reason for Consultation: Gastroparesis, Failure to thrive Requesting Physician: Augusto Chapa PA-C Attending Physician: Marcial Nesbitt MD History of Present Illness Patient is a 72 y.o. female with a history of Cortez's esophagus and mild gastroparesis admitted with intractable nausea with vomiting and failure to thrive. She was last seen in our office by me on 01/10/23 after EGD with dilation by Dr. Dior which was performed on 12/17/22 and notable for a gastric bezoar. At that time of evaluation, she had a pending GES which was performed on 01/13/23 which demonstrated upper limits of normal T 1/2 emptying time. Patient was prescribed Reglan 5 mg TID by her PCP but states this medication was discontinued approximately one month ago due to concerning neurological side effects mimicking a stroke. She has a known tremor which began one year ago and she reports the tremor was not exacerbated while on the medication. Since being off Reglan, she has had worsened symptoms of nausea with vomiting and presented to the ER with significant dehydration. Patient has been receiving Reglan 5 mg IV q r hours. Has been started on LR at 80 ml/hr. Palliative consult has been obtained. Outpatient appointment is pending for GI motility in April. Allergies Allergy/AdvReac Type Severity Reaction Status Date / Time adhesive Allergy Intermediate ITCHY RASH Verified 01/27/23 16:00 camphor [From Sarna Original] Allergy Intermediate ITCHY, Verified 01/27/23 16:01 BLISTERY RASH latex Allergy Intermediate itching Verified 01/27/23 16:00 menthol [From Sarna Original] Allergy Intermediate ITCHY, Verified 01/27/23 16:01 BLISTERY RASH methyl salicylate Allergy Intermediate ITCHY, Verified 01/27/23 16:00 [From Icy Hot] BLISTERING RASH nickel Allergy Intermediate swelling Verified 01/27/23 16:00 and redness sulfamethoxazole [Bactrim] Allergy Intermediate THROAT Verified 01/27/23 16:00 FELT FULL, MOUTH ULCERS trimethoprim [Bactrim] Allergy Intermediate THROAT Verified 01/27/23 16:00 FELT FULL, MOUTH ULCERS chlorpromazine Allergy Unknown CAN'T Verified 01/27/23 16:00 REMEMBER aspirin [From Aggrenox] AdvReac Intermediate MADE Verified 01/27/23 16:00 HEADACHE WORSE cyclobenzaprine AdvReac Intermediate psych Verified 01/27/23 16:00 [From Flexeril] complications dipyridamole [From Aggrenox] AdvReac Intermediate MADE Verified 01/27/23 16:00 HEADACHE WORSE loratadine AdvReac Intermediate AGITATED, Verified 01/27/23 16:00 IF CONTAINS DECONGESTANT--BECOMES MEAN oxycodone AdvReac Intermediate NAUSEA/VOMI Verified 01/27/23 16:00 TING prazosin AdvReac Intermediate ABD Verified 01/27/23 16:00 PAIN/NAUSEA/VOMITING Home Medications Medication Instructions Recorded Confirmed Type albuterol sulfate 90 mcg/actuation 2 puff inhalation Q6H PRN 09/25/22 03/05/23 Rx aerosol inhaler (Proventil HFA) shortness of breath or wheezing #8.5 grams pen needle, diabetic 32 gauge x #100 ea 10/03/22 03/05/23 Rx 5/32" (BD Ultra-Fine Shreya Pen Needle) blood sugar diagnostic (OneTouch #100 ea 10/30/22 03/05/23 Rx Ultra Test strips) gabapentin 100 mg capsule 100 mg PO QPM 11/11/22 03/05/23 History gabapentin 300 mg capsule 300 mg PO TID 11/11/22 03/05/23 History pantoprazole 40 mg tablet,delayed 40 mg PO QAM 11/11/22 03/05/23 History release (Protonix) blood-glucose meter #1 ea 11/13/22 03/05/23 Rx lancets (OneTouch UltraSoft #200 ea 11/18/22 03/05/23 Rx Lancets) metoprolol tartrate 25 mg tablet 12.5 mg PO DAILY 12/04/22 03/05/23 History aspirin 81 mg tablet,delayed 81 mg PO QAM 12/11/22 03/05/23 History release (Adult Low Dose Aspirin) atorvastatin 40 mg tablet 40 mg PO QAM 12/11/22 03/05/23 History buspirone 5 mg tablet See Rx Instructions .Route .COMPLEX 12/11/22 03/05/23 History cholecalciferol (vitamin D3) 50 50 mcg PO QAM 12/11/22 03/05/23 History mcg (2,000 unit) capsule empagliflozin 25 mg tablet 25 mg PO QAM 12/11/22 03/05/23 History (Jardiance) fluticasone propionate 50 2 spray intranasal DAILY PRN 12/11/22 03/05/23 History mcg/actuation nasal Allergy Symptoms spray,suspension (Flonase Allergy Relief) blood sugar diagnostic (OneTouch #100 ea 12/16/22 03/05/23 Rx Verio test strips) insulin glargine 100 unit/mL (3 10 unit subcut QPM 01/02/23 03/05/23 History mL) subcutaneous pen (Lantus Solostar U-100 Insulin) metformin 1,000 mg tablet 1,000 mg PO BID 01/02/23 03/05/23 History lisinopril 10 mg tablet 5 mg PO QAM 01/27/23 03/05/23 History venlafaxine 75 mg capsule,extended 75 mg PO DAILY 03/05/23 03/05/23 History release 24 hr Patient History Medical History (Updated 03/06/23 @ 13:41 by Carley Bonilla DNP) Advanced care planning/counseling discussion Anxiety Asthma, mild persistent inhaler daily/prn, nebulizer prn Dehydration recently admitted to [facility] for this (12/04/22) Depression DM type 2 with diabetic peripheral neuropathy Dyslipidemia Generalized pain GERD with esophagitis GERD and medium-sized hiatus hernia with associated Aravind's erosions (dx [address] Portillo) s/p lap Saji Fundoplication by Dr. Peralta at [facility] [place] of [place] History of COVID-19 diagnosed 08/2022--admitted to [facility]-- HTN (hypertension) Intractable nausea and vomiting Iron deficiency anemia Major depressive disorder Metabolic acidosis CORINA (obstructive sleep apnea) device recalled and never got another device Osteoarthritis Palliative care by specialist PTSD (post-traumatic stress disorder) Refractory nausea and vomiting RLS (restless legs syndrome) SSS (sick sinus syndrome) Stroke 2002--due to high blood pressure---speech deficit, otherwise no other issues--was cleared from neurologist Tardive dyskinesia Vitamin D deficiency Weakness generalized Surgical History Amputation toe Hammer toe History of appendectomy History of bilateral oophorectomy History of bladder surgery vaginal sling History of bunionectomy History of cardiac cath "a long time ago"--no stents placed History of cataract surgery right History of cholecystectomy History of colonoscopy History of dilatation and curettage History of esophagogastroduodenoscopy (EGD) History of hysterectomy History of knee replacement bilateral History of repair of hiatal hernia History of tonsillectomy History of tooth extraction Pacemaker medtronic--placed 01/2022 @ [facility]--follows S/P cardiac pacemaker procedure medtronic S/P cervical spinal fusion normal ROM S/P repair of paraesophageal hernia Status post rotator cuff repair Family History Daughter Cervical cancer Father Gallbladder cancer Colorectal cancer Aunt Diabetes Breast cancer Brother Heart disease Suicide Mother Schizophrenia Suicide Grandmother (Paternal) Breast cancer Grandfather (Paternal) Myocardial infarction Other Family history not known due to adoption Denies family history of Ovarian cancer Prostate cancer Social History Smoking Status: Never smoker Second Hand Exposure: No; Do You Dip or Chew Tobacco: No; Hx Alcohol Use: No Hx Substance Use: No Preferred Language: Amharic Communication Ability: Impaired Visual Impairment: Limited Hearing Ability: Normal Front Desk Lead Required: No Beliefs That Will Affect Care: None marital status: / Current Living Situation: Family Current Living Situation Comment: Lives at [facility] [place] current occupational status: retired How many Children do You have: 0 Other Information That Helps Us Care for You: No Feels Safe at Home: Yes Safety Concerns: Feels Safe At This Time Childhood Exposure to Second-Hand Smoke: Yes Diet: low carbohydrate and regular caffeine: Yes during the past year weight has: remained stable Dental Care, Regularly: Yes Physical Activity Frequency: Does not Exercise Seatbelt Use: always Sunscreen Use: Yes Do you think of yourself as: straight/heterosexual Gender Identity: Female Assistive Devices: Glasses Review of Systems Constitutional: + weakness and + anorexia Respiratory: no problem reported Cardiovascular: no problem reported Gastrointestinal: as per Subjective / HPI Physical Exam Constitutional: + frail appearing Eyes: EOM intact bilaterally Respiratory: normal respiratory effort Auscultation: lungs clear to a uscultation bilaterally Cardiovascular: Rate/Rhythm: regular rate and regular rhythm Gastrointestinal (Abdomen): normal bowel sounds, soft, nontender, no hepatosplenomegaly Psychiatric: A+Ox3, euthymic affect Results & Data Vital Signs (Past 12 Hours) Vital Signs Temp Pulse Pulse Resp BP Pulse Ox O2 Del Method 03/06/23 08:48 36.5 C 72 17 94/57 L 99 Nasal Cannula 03/06/23 03:00 36.6 C 101 H 20 120/73 98 Nasal Cannula 03/06/23 00:55 94 H O2 Flow Rate 03/06/23 08:48 2 03/06/23 03:00 2 03/06/23 00:55 Diagnostic Findings Laboratory Results WBC 10.86 K/ul (4.8-10.8) H 03/06/23 06:32 RBC 3.67 M/uL (4.20-5.40) L 03/06/23 06:32 Hgb 10.6 g/dl (12.0-16.0) L D 03/06/23 06:32 Hct 32.0 % (37.0-47.0) L 03/06/23 06:32 MCV 87.2 fL (80.0-100.0) 03/06/23 06:32 MCH 28.9 pg (25.0-34.0) 03/06/23 06:32 MCHC 33.1 g/dL (32.0-36.0) 03/06/23 06:32 RDW Std Deviation 41.2 fL (36.4-46.3) 03/06/23 06:32 RDW Coeff of Peggy 13.1 % (11.5-14.5) 03/06/23 06:32 Plt Count 272 K/uL (130-400) 03/06/23 06:32 MPV 9.1 fL (9.4-12.4) L 03/06/23 06:32 Immature Gran % (Auto) 0.5 % 03/06/23 06:32 Neut % (Auto) 73.2 % 03/06/23 06:32 Lymph % (Auto) 13.7 % 03/06/23 06:32 Villalba % (Auto) 11.7 % 03/06/23 06:32 Eos % (Auto) 0.3 % 03/06/23 06:32 Baso % (Auto) 0.6 % 03/06/23 06:32 Neut # (Auto) 7.96 K/uL (1.40-6.50) H 03/06/23 06:32 Lymph # (Auto) 1.49 K/uL (1.2-3.4) 03/06/23 06:32 Villalba # (Auto) 1.27 K/uL (0.11-0.59) H 03/06/23 06:32 Eos # (Auto) 0.03 K/uL (0-0.50) 03/06/23 06:32 Baso # (Auto) 0.06 K/uL (0-0.2) 03/06/23 06:32 Immature Gran # (Auto) 0.05 K/uL (0.01-0.20) 03/06/23 06:32 ESR 20 mm/hr (0-30) 03/05/23 12:00 PT 10.9 Seconds (9.0-12.0) 03/05/23 12:00 INR 1.0 (0.9-1.1) 03/05/23 12:00 Sodium 140 mmol/L (136-145) 03/06/23 06:32 Potassium 3.9 mmol/L (3.5-5.1) 03/06/23 06:32 Chloride 107 mmol/L (98-107) 03/06/23 06:32 Carbon Dioxide 20 mmol/L (21-32) L 03/06/23 06:32 Anion Gap 13 (3-11) H 03/06/23 06:32 BUN 41 mg/dl (6-23) H 03/06/23 06:32 Creatinine 0.62 mg/dl (0.6-1.2) 03/06/23 06:32 Est Cr Clr Drug Dosing 71.1 ml/min 03/06/23 06:32 Est GFR ( Amer) 104.4 ml/min 03/06/23 06:32 Est GFR (Non-Af Amer) 90.1 ml/min 03/06/23 06:32 BUN/Creatinine Ratio 66.1 (10-20) H 03/06/23 06:32 Glucose 93 mg/dl (70-99(Fasting)) 03/06/23 06:32 POC Glucose 88 mg/dl (70-99) 03/06/23 05:36 Estimat Average Glucose 171 mg/dl 03/06/23 06:32 Hemoglobin A1c 7.6 % (4.5-5.6) H 03/06/23 06:32 Lactate 1.2 mmol/L (0.4-2.0) 03/05/23 14:15 Calcium 9.0 mg/dl (8.6-10.3) 03/06/23 06:32 Phosphorus 4.9 mg/dl (2.5-4.9) 03/05/23 12:00 Magnesium 1.8 mg/dl (1.7-2.4) 03/06/23 06:32 Total Bilirubin 0.8 mg/dl (0.2-1.0) 03/06/23 06:32 AST 21 U/L (13-39) 03/06/23 06:32 ALT 18 U/L (7-52) 03/06/23 06:32 Alkaline Phosphatase 56 U/L (34-104) 03/06/23 06:32 Total Creatine Kinase 35 U/L (26-192) 03/05/23 14:21 Troponin I High Sens 6.6 pg/ml (0-14) 03/05/23 12:00 C-Reactive Protein < 0.50 mg/dl (0-0.5) 03/05/23 12:00 Total Protein 5.6 gm/dl (6.0-8.3) L D 03/06/23 06:32 Albumin 3.4 gm/dl (3.4-5.0) 03/06/23 06:32 Globulin 2.2 gm/dl (2.5-4.0) L 03/06/23 06:32 Albumin/Globulin Ratio 1.5 (0.9-2) 03/06/23 06:32 TSH 0.252 uIu/ml (0.300-4.500) L 03/05/23 12:00 Free T4 1.23 ng/dl (0.61-1.60) 03/05/23 12:00 Urine Color Yellow 03/05/23 12:45 Urine Appearance Clear (Clear) 03/05/23 12:45 Urine pH 5.0 (4.5-7.5) 03/05/23 12:45 Ur Specific [place] 1.031 (1.000-1.030) H 03/05/23 12:45 Urine Protein Negative (Negative) 03/05/23 12:45 Urine Glucose (UA) 3+ (Negative) H 03/05/23 12:45 Urine Ketones 4+ (Negative) H 03/05/23 12:45 Urine Blood Negative (Negative) 03/05/23 12:45 Urine Nitrite Negative (Negative) 03/05/23 12:45 Urine Bilirubin Negative (Negative) 03/05/23 12:45 Urine Urobilinogen Negative (Negative) 03/05/23 12:45 Ur Leukocyte Esterase Negative (Negative) 03/05/23 12:45 SARS-CoV-2, RNA, NAAT NEGATIVE (NEGATIVE) 03/05/23 Unknown Impressions Chest X-Ray 03/05/23 11:34 XR chest 1V portable HISTORY: 72 years-old Female weakness acute weakness COMPARISON: 01/27/2023 TECHNIQUE: AP view of the chest FINDINGS: Cardiac silhouette is enlarged. Dual lead left subclavian pacer. Atherosclerosis of the aorta. Left atrial septal occlusion device. No pneumothorax, pleural effusion, airspace consolidation or pulmonary edema. Degenerative changes of the shoulders and spine. Cholecystectomy. Cervical spinal fusion hardware. Chronic deformity of the distal right clavicle. IMPRESSION: No acute process. ACT 112: Negative or not required by law. The above report was generated using voice recognition software. It may contain grammatical, syntax or spelling errors. Electronically signed by: Maykel Lainez M.D. 03/05/2023 12:[address] 03/05/23 11:48 CT head/brain wo con CLINICAL HISTORY: 72 years-old Female with weakness. Acute weakness TECHNIQUE: Multiple axial CT images of the head were obtained without contrast. A dose lowering technique was utilized adhering to the principles of ALARA. COMPARISON: 12/05/2022. FINDINGS: No acute intracranial hemorrhage, midline shift, intracranial mass, hydrocephalus, territorial ischemia or abnormal extra-axial collection. Involutional changes with chronic microvascular ischemic disease. The calvarium is intact. Right-sided lens repair. The paranasal sinuses, mastoid air cells, and middle ear cavities are clear. IMPRESSION: No acute intracranial abnormality. ACT 112: Negative or not required by law. The above report was generated using voice recognition software. It may contain grammatical, syntax or spelling errors. Electronically signed by: Maykel Lainez M.D. 03/05/2023 1:34 PM Abdomen/Pelvis CT 03/05/23 11:49 CT OF THE ABDOMEN AND PELVIS WITHOUT CONTRAST CLINICAL HISTORY: Vomiting. Possible obstruction. COMPARISON STUDY: CT of the abdomen and pelvis October 14, 2022 and KUB January 27, 2023. TECHNIQUE: Axial images of the abdomen and pelvis were obtained without IV contrast. Images were reviewed in the axial, sagittal, and coronal planes. Automated exposure control was utilized for the study. A dose lowering technique was utilized adhering to the principles of ALARA. FINDINGS: Lung bases are unremarkable. Evaluation of the abdomen and pelvis is suboptimal on this unenhanced exam. No pneumatosis, free air or portal venous gas is present. There is no biliary ductal dilatation status post attila cystectomy. There are no urinary calculi. No hydronephrosis is present. Spleen, adrenal glands and pancreas are unremarkable. There is no evidence for a bowel obstruction. Colonic diverticulosis is present without evidence for acute diverticulitis. There is no lymphadenopathy. No fluid collection is present. No acute fractures are identified within visualized skeletal structures. IMPRESSION: 1. No acute process within the abdomen or pelvis on unenhanced exam. 2. No bowel obstruction. 3. Colonic diverticulosis. No evidence for acute diverticulitis. ACT 112: Negative or not required by law. Electronically signed by: Jeffry Morgan M.D. 03/05/2023 1:39 PM PG Care Time/CCT Total # of Minutes Spent Total Time Spent with Patient: Total time spent is greater than 50% in coordination of care (as documented) at patient's floor/unit and/or counseling patient: Coding Level of Care Code 32795 INT INP/OBS CARE 3/75MIN Diagnoses Refractory nausea and vomiting R11.2 Gastroparesis K31.84
--- NOTE | 2023-03-06 12:50 | Hospitalist Progress Note ---
Date of Service March 06, 2023 Assessment & Plan (1) Adult failure to thrive: Plan: Supportive care. OT and PT assessments requested. She will either need SNF placement or home with hospice. (2) Gastroparesis: Plan: Chronic. With intractable nausea and vomiting. Scheduled IV Reglan for now. Appreciate gastroenterology consultation and recommendations. (3) Cortez's esophagus: Plan: Protonix therapy (4) SVT (supraventricular tachycardia): Plan: Stable. -Continue metoprolol (5) DM type 2 with diabetic peripheral neuropathy: Plan: ADA diet. Holding metformin and Jardiance. She is now on low-dose Lantus therapy. Sliding scale coverage as needed (6) HTN (hypertension): Plan: Stable . Continue lisinopril (7) Dyslipidemia: Plan: Will discontinue statin at this point (8) PTSD (post-traumatic stress disorder): Plan: Supportive care. Continue Venlafaxine and Buspar (9) CORINA (obstructive sleep apnea): Plan: Holding CPAP due to persistent nausea and vomiting and high risk for aspiration Plan To be determined. She will either need SNF placement or possibly go home with hospice care Admission and Anticipated Discharge Date Admission Date: March 05, 2023 Subjective Alert and oriented frail appearing elderly female. GI consultation noted. Palliative care evaluation pending. Continue scheduled intravenous Reglan for now. Will allow full liquid diet. Continue low-flow IV fluids for now. Review of Systems Review of Systems: Constitutional-no fever or chills ENT-no blurred vision, no double vision, no epistaxis, no sore throat Respiratory-no cough, no wheezing, no shortness of breath Cardiac-no palpitations, no chest pain, no syncope GI-persistent nausea. Persistent diffuse abdominal pain. Denies melena, denies hematochezia -no urinary retention, no urinary incontinence, no dysuria, no hematuria Musculoskeletal-no joint pain, no muscle tenderness Skin-no bruising, no rashes, no pruritus Neuro-no isolated weakness, no paresthesia, no weakness Psych-depressed affect Physical Exam Physical Exam: General-cachectic appearing elderly female. Alert and oriented. No fevers, no chills HEENT-head atraumatic and normocephalic, pupils equal and reactive to light, extraocular muscles intact Neck-no lymphadenopathy or thyromegaly, trachea midline Chest-clear to auscultation percussion. No rales wheezing or rhonchi Cardiac-regular rate and rhythm, normal S1 and S2, no murmurs Abdomen-normal bowel sounds, no hepatosplenomegaly. No distention. Diffuse abdominal tenderness. No rebound or guarding Extremities-no cyanosis, clubbing, or edema Neuro-cranial nerves II through XII intact, motor and sensory function within normal limits, strength symmetrical with generalized weakness, no focal deficits Psych-depressed affect Results & Data Results & Data Vital Signs (Past 12 Hours) Vital Signs Temp Pulse Pulse Resp BP Pulse Ox O2 Del Method 03/06/23 12:03 36.6 C 64 17 104/62 98 Nasal Cannula 03/06/23 10:46 81 03/06/23 10:43 Nasal Cannula 03/06/23 08:48 36.5 C 72 17 94/57 L 99 Nasal Cannula 03/06/23 03:00 36.6 C 101 H 20 120/73 98 Nasal Cannula 03/06/23 00:55 94 H O2 Flow Rate 03/06/23 12:03 2 03/06/23 10:46 03/06/23 10:43 2 03/06/23 08:48 2 03/06/23 03:00 2 03/06/23 00:55 Laboratory Results 03/06/23 06:32 03/06/23 06:32 PG Care Time/CCT Total # of Minutes Spent Total Time Spent with Patient: Total time spent is greater than 50% in coordination of care (as documented) at patient's floor/unit and/or counseling patient: Coding Level of Care Code 75272 SUB INP/OBS CARE 3/50MIN Diagnoses Adult failure to thrive R62.7 Gastroparesis K31.84 Cortez's esophagus K22.70 SVT (supraventricular tachycardia) I47.1 DM type 2 with diabetic peripheral neuropathy E11.42 HTN (hypertension) I10 Dyslipidemia E78.5 PTSD (post-traumatic stress disorder) F43.10 CORINA (obstructive sleep apnea) G47.33
[2023-03-06] MEDS: MoRPHine SULFATE 2 MG/ML CARP IV PRN ×2 (15:35→19:31)
[2023-03-06] MEDS: D5W AND NSS 1,000 ML IV SCH (18:59)
[2023-03-06] MEDS: ENOXAPARIN INJ 40 MG/0.4 ML SYR SQ SCH (19:27)
[2023-03-06] MEDS: METOPROLOL TARTRATE 25 MG TAB PO SCH (19:37)
--- NOTE | 2023-03-06 22:32 | Palliative Family Discussion ---
Date of Service March 06, 2023 Patient Directed Conference Time of [id number] Participants: Carley Bonilla DNP Patient participation: no Patient Support System: dtr Darcy/pt and Darcy live together in [facility] Other Healthcare Provider Participation: None Meeting Location: teleconference Advanced Directive available: no The patient's surrogate medical decision maker participated: yes - Darcy A family meeting was held for [employer]. This meeting was necessary for determining the appropriate course of treatment. Topics of Discussion Topics of Discussion: 1. Progressive weakness , decline, poor intake, refractory gastroparesis 2. Multiple therapies to date w/o relief 3. Pt & dtr have been discussing hospice. Darcy met w/her brothers last night and everyone in agreement for comfort care with hospice at home. They support pt decision to shift away from aggressive care, they don't want SNF or rehab, they're aware Pt is in a general state of continuous decline. Other Content of Meetin. Opportunity given for participants to speak and ask questions. 2. Participants were assured of attention to patient comfort. 3. Reassurance provided. 4. Support was provided for informed, good-roderick decisions. We discussed the goals of hospice as a patient service and the goals of care; we discussed EOL trajectories and transitions rodolfo the emotional impact of realizing mortality as a concrete reality from prior abstract considerations. Pt was reassured that no matter where they are along this trajectory, they are not alone - their medical team will remain by their side through their journey. Discussed the pros/cons of accepting help when especially weakened and distressed by pain-which would also help provide relief/decrease caregiver burden/strain. I provided education about the hospice benefit: an interdisciplinary program offered by nurses, nurses aides, social workers, chaplains and a medical affairs specialist for patients with a terminal condition and a life expectancy of less than 6 months. This is covered by Medicare at 100%/no out of pocket expense to patient and all meds/supplies needed by patient for the reason they are on hospice are paid for/covered by hospice. The goal is assure quality of life of the patient in their home setting (home, senior care, inpatient hospice setting) by providing symptoms management, psychosocial and spiritual support. However, they cannot offer 24 hours care and if the family is unable to provide that care, they will have to consider personal care with out of pocket cost vs. senior care placement. We discussed the goals of hospice as a patient service and the goals of care; we discussed EOL trajectories and transitions rodolfo the emotional impact of realizing mortality as a concrete reality from prior abstract considerations. Pt was reassured that no matter where they are along this trajectory, they are not alone - their medical team will remain by their side through their journey. Discussed the pros/cons of accepting help when especially weakened and distressed by pain-which would also help provide relief/decrease caregiver burden/strain. 5. Emotions expressed by family were acknowledged and addressed. 6. Follow-up Outpatient: none 7. Plan of Care: family & pt desire home hospice discharge , with focus on QOL & sx mgt, no return to hospital , no more invasive testing, interventions etc. Dtr coming to visit Friday - will meet with CM to finalize plans. She indicates no additional questions or concerns from Pall med and so we have not scheduled a time to meet, she advised all questions were answered to her apparent satisfaction, concerns now are about the logistics and arrangement sot bring pt home-they would like her brought home via transport and brought into the home (no ramp.) 8. Darcy & I reviewed what to expect in days/weeks ahead given pt decline & reducing intake. I provided education about the Dying process: Discussed changes pt may move through in the dying process including but not limited to sleeping more, disorientation when awake, restlessness, diminished senses/inability to respond to stimulus although ability to be aware of them remains intact longer, and changes in body temperatures, skin changes/mottling/cyanosis, respiratory pattern changes, and oral secretions. Family verbalized understanding. The goal is to assure a peaceful . We also reviewed there can sometimes be an EOL Rally: When a person facing the end of life rallies, they seem to become "more stable" - may want to talk or even begin taking PO; this phenomenon is usually seen as a sudden burst of energy before . This period of perking up can be accompanied by such a notable change in mental clarity that is often referred to as terminal lucidity. This change in cognition and behavior goes against everything families learn about the physical signs that the end of life is near. It is important to note that evidence-based data is elusive, if nonexistent. Theories support that it may be a search for a final, strong connection. Also, as organs shut down, they can release a steroid like compound that briefly rouses the body - in the specific case of brain tumors, swelling occurs in the confined space of the skull. The edema shrinks as EOL care patients are weaned off food and drink, waking up the brain a bit. Families and caregivers may grasp at what seems to be a turnaround in a loved ones health, however, the EOL Rally is a hallmark pre- sign. It is not uncommon for patients to show improvement before : they may want to talk while others may become restless or act as if they need to start preparing for a trip. Some patients will become more relaxed yet remain tuned in to what is going on around them, others will show signs of physical stability when, seconds before, they seemed on the verge of letting go. A rally can last for a few moments or even days. Short or long, these temporary improvements can have a profound effect on loved ones who are keeping guo. Like a moment of clarity for someone who has dementia, a rally is one last opportunity to connect with a loved one. Each persons experience is unique and impossible to predict with total accuracy. Life is full of questions, and some of them simply are not meant to be answered. Read more: https://www.wst.cn.[employer]//well/uma-xzhxboo-lk-dex-he-hpvi-rallies.html Time Involved in Meeting: I spent 45minutes overall addressing this case: 0/previously done in medical data review/discussion with referring provider(s) and/or preparation for the visit 0 in direct interaction with the patient - see consult 35 Advance Care Planning/Goals of Care discussions as detailed above in note (must be >16min) 5 in subsequent review and synthesis of assessment and plan 5 in communicating with other providers regarding the patient's case: primary team
[2023-03-07] MEDS: INSULIN ASPART PER UNIT CHARGE SC SCH ×3 (00:24→12:31)
[2023-03-07] MEDS: MoRPHine SULFATE 2 MG/ML CARP IV PRN ×5 (00:43→20:19)
[2023-03-07] MEDS: METOCLOPRAMIDE HCL INJ 5 MG/ML 2 ML VIAL IV SCH ×4 (02:23→20:18)
[2023-03-07 07:10] LABS: Basophils # (auto) 0.04 K/uL (0-0.2); Basophils % (auto) 0.6 %; Eosinophils # (auto) 0.08 K/uL (0-0.50); Eosinophils % (auto) 1.1 %; Hematocrit (blood only) 31.4 % (37.0-47.0); Hemoglobin 10.2 g/dl (12.0-16.0); Immature Granulocytes # (auto) 0.03 K/uL (0.01-0.20); Immature Granulocytes % (auto) 0.4 %; Lymphocytes # (auto) 1.04 K/uL (1.2-3.4); Lymphocytes % (auto) 14.9 %; Mean Corpuscular Hemoglobin 28.7 pg (25.0-34.0); Mean Corpuscular Hgb Conc 32.5 g/dL (32.0-36.0); Mean Corpuscular Volume 88.5 fL (80.0-100.0); Mean Platelet Volume 9.2 fL (9.4-12.4); Monocytes % (auto) 8.6 %; Neutrophils # (auto) 5.18 K/uL (1.40-6.50); Neutrophils % (auto) 74.4 %; Platelet Count 240 K/uL (130-400); RDW Standard Deviation 42.4 fL (36.4-46.3); Red Blood Count 3.55 M/uL (4.20-5.40); White Blood Count 6.97 K/ul (4.8-10.8)
[2023-03-07 07:36] LABS: BUN Creatinine Ratio 64.4 (10-20); Calcium 8.9 mg/dl (8.6-10.3); Creatinine Clr Calc Pharmacy 97.8 ml/min; Est GFR (Non-African American) 100.1 ml/min; Potassium 3.6 mmol/L (3.5-5.1)
[2023-03-07] MEDS: lisinopril 5 MG TAB PO SCH (08:53)
[2023-03-07] MEDS: busPIRone 5 MG TAB PO SCH ×2 (08:53→20:19)
[2023-03-07] MEDS: METOPROLOL TARTRATE 25 MG TAB PO SCH ×2 (08:54→20:19)
[2023-03-07] MEDS: VENLAFAXINE HCL XR 75 MG CAPXR PO SCH (08:56)
[2023-03-07] MEDS: ASPIRIN 81 MG ECTAB PO SCH (08:56)
[2023-03-07] MEDS: GABAPENTIN 300 MG CAP PO SCH ×3 (08:56→20:19)
[2023-03-07] MEDS: LANTUS PER UNIT CHARGE SQ SCH (10:03)
[2023-03-07] MEDS: D5W AND NSS 1,000 ML IV SCH (11:55)
[2023-03-07] MEDS: PANTOprazole 40 MG in SYRINGE 0 ML IV SCH (11:56)
--- NOTE | 2023-03-07 13:02 | Hospitalist Progress Note ---
Date of Service March 07, 2023 Assessment & Plan (1) Adult failure to thrive: Plan: Supportive care. She has elected to go home with hospice care which has yet to be arranged . (2) Gastroparesis: Plan: Chronic. With intractable nausea and vomiting. She is receiving scheduled IV Reglan and as needed Phenergan has been added today, March 07. Appreciate gastroenterology consultation and recommendations. (3) Cortez's esophagus: Plan: Protonix therapy (4) SVT (supraventricular tachycardia): Plan: Stable. -Continue metoprolol (5) DM type 2 with diabetic peripheral neuropathy: Plan: ADA diet. Holding metformin and Jardiance. She is now on low-dose Lantus therapy. Sliding scale coverage as needed (6) HTN (hypertension): Plan: Stable . Continue lisinopril (7) Dyslipidemia: Plan: Will discontinue statin at this point (8) PTSD (post-traumatic stress disorder): Plan: Supportive care. Continue Venlafaxine and Buspar (9) CORIAN (obstructive sleep apnea): Plan: Holding CPAP due to persistent nausea and vomiting and high risk for aspiration Plan Home with hospice when arrangements are finalized Admission and Anticipated Discharge Date Admission Date: March 07, 2023 Subjective Intractable nausea and vomiting despite scheduled IV Reglan. We will add as needed IV Phenergan. Palliative care consultation noted. She has elected to go home with hospice care which has yet to be arranged Review of Systems Review of Systems: Constitutional-no fever or chills ENT-no blurred vision, no double vision, no epistaxis, no sore throat Respiratory-no cough, no wheezing, no shortness of breath Cardiac-no palpitations, no chest pain, no syncope GI-persistent nausea. Persistent diffuse abdominal pain. Denies melena, denies hematochezia -no urinary retention, no urinary incontinence, no dysuria, no hematuria Musculoskeletal-no joint pain, no muscle tenderness Skin-no bruising, no rashes, no pruritus Neuro-no isolated weakness, no paresthesia, no weakness Psych-depressed affect Physical Exam Physical Exam: General-cachectic appearing elderly female. Alert and oriented. No fevers, no chills HEENT-head atraumatic and normocephalic, pupils equal and reactive to light, extraocular muscles intact Neck-no lymphadenopathy or thyromegaly, trachea midline Chest-clear to auscultation percussion. No rales wheezing or rhonchi Cardiac-regular rate and rhythm, normal S1 and S2, no murmurs Abdomen-normal bowel sounds, no hepatosplenomegaly. No distention. Diffuse abdominal tenderness. No rebound or guarding Extremities-no cyanosis, clubbing, or edema Neuro-cranial nerves II through XII intact, motor and sensory function within n ormal limits, strength symmetrical with generalized weakness, no focal deficits Psych-depressed affect Results & Data Results & Data Vital Signs (Past 12 Hours) Vital Signs Temp Pulse Pulse Resp BP BP Pulse Ox 03/07/23 11:51 36.4 C L 60 18 133/77 100 03/07/23 07:58 36.5 C 59 L 18 104/62 99 03/07/23 07:46 60 03/07/23 03:00 36.5 C 62 20 145/73 H 100 O2 Del Method O2 Flow Rate 03/07/23 11:51 Nasal Cannula 2 03/07/23 07:58 Nasal Cannula 2 03/07/23 07:46 03/07/23 03:00 Nasal Cannula 2 Laboratory Results 03/07/23 06:13 03/07/23 06:13 PG Care Time/CCT Total # of Minutes Spent Total Time Spent with Patient: Total time spent is greater than 50% in coordination of care (as documented) at patient's floor/unit and/or counseling patient: Coding Level of Care Code 07192 SUB INP/OBS CARE 3/50MIN Diagnoses Adult failure to thrive R62.7 Gastroparesis K31.84 Cortez's esophagus K22.70 SVT (supraventricular tachycardia) I47.1 DM type 2 with diabetic peripheral neuropathy E11.42 HTN (hypertension) I10 Dyslipidemia E78.5 PTSD (post-traumatic stress disorder) F43.10 CORINA (obstructive sleep apnea) G47.33
[2023-03-07] MEDS: PROMETHAZINE HCL 12.5 MG in SODIUM CHLORIDE 0.9% 50 ML IV PRN ×2 (13:24→22:48)
--- NOTE | 2023-03-07 14:12 | Palliative Family Discussion ---
Date of Service March 07, 2023 Patient Directed Conference Time of Meetin- 120pm 30min ACP discussion face to face with pt and her daughter Participants: Carley Bonilla DNP Patient participation: yes Patient Support System: daughter at bedside Other Healthcare Provider Participation: Adriana/LAUREANO The patient's surrogate medical decision maker participated: yes dtr A family meeting was held for [employer]. This meeting was necessary for determining the appropriate course of treatment. Topics of Discussion Topics of Discussion: 1. Generalized decline 2. Refractory gastroparesis, persistent n/v, chronic malnutrition, declining PS 3. Patient does not want any more aggressive treatments. Nothing has helped and she is aware there is no curative options to bring about dramatic improvement. She states "I want to be comfortable, not poked and prodded anymore and have this pain be better. that's all i want now." Other Content of Meetin. Opportunity given for participants to speak and ask questions. 2. Participants were assured of attention to patient comfort. 3. Reassurance provided. 4. Support was provided for informed, good-roderick decisions. We discussed the goals of hospice as a patient service and the goals of care; we discussed EOL trajectories and transitions rodolfo the emotional impact of realizing mortality as a concrete reality from prior abstract considerations. Pt was reassured that no matter where they are along this trajectory, they are not alone - their medical team will remain by their side through their journey. Discussed the pros/cons of accepting help when especially weakened and distressed by pain-which would also help provide relief/decrease caregiver burden/strain. 5. Emotions expressed by family were acknowledged and addressed. 6. They elect [facility]. Adriana will submit referral. patient will need transport home 7. Plan of Care: transition to comfort care. simplify meds, no more labs or testing. no escalation of care. orders written. Time Involved in Meeting: I spent [] minutes overall addressing this case: [] in medical data review/discussion with referring provider(s) and/or preparation for the visit [] in direct interaction with the patient [] [] Advance Care Planning/Goals of Care discussions as detailed above in note (must be >16min) [] in subsequent review and synthesis of assessment and plan [] in communicating with other providers regarding the patient's case: []
[2023-03-07] MEDS ORDERED: LORazepam 2 MG/1 ML VIAL IV PRN (14:18)
[2023-03-07] MEDS ORDERED: LORazepam 0.5 MG TAB PO PRN (14:18)
[2023-03-07] MEDS: PHENAZOPYRIDINE HCL 100 MG TAB PO SCH (20:17)
[2023-03-07] MEDS: MoRPHine SULFATE 10 MG/0.5 ML UDP PO PRN (22:49)
[2023-03-07] MEDS ORDERED: GLUCAGON FOR INJ 1 MG VIAL SQ PRN (23:00)
[2023-03-07] MEDS ORDERED: GLUCOSE 40% GEL 15 GM TUBE PO PRN (23:00)
[2023-03-07] MEDS ORDERED: GLUCOSE 10 TAB/TUBE PO PRN (23:00)
[2023-03-07] MEDS ORDERED: DEXTROSE 50% 50 ML SYRINGE IV PRN (23:00)
[2023-03-07] MEDS ORDERED: CARBOHYDRATES FOR HYPOGLYCEMIA PO PRN (23:00)
[2023-03-08] MEDS: METOCLOPRAMIDE HCL INJ 5 MG/ML 2 ML VIAL IV SCH ×4 (02:49→20:05)
[2023-03-08] MEDS: MoRPHine SULFATE 2 MG/ML CARP IV PRN ×3 (05:51→19:57)
[2023-03-08] MEDS: MoRPHine SULFATE 10 MG/0.5 ML UDP PO PRN ×2 (08:10→17:53)
[2023-03-08] MEDS: GABAPENTIN 300 MG CAP PO SCH ×3 (09:21→19:58)
[2023-03-08] MEDS: VENLAFAXINE HCL XR 75 MG CAPXR PO SCH (09:21)
[2023-03-08] MEDS: ASPIRIN 81 MG ECTAB PO SCH (09:21)
[2023-03-08] MEDS: PHENAZOPYRIDINE HCL 100 MG TAB PO SCH ×3 (09:21→19:59)
[2023-03-08] MEDS: busPIRone 5 MG TAB PO SCH ×2 (09:21→19:58)
[2023-03-08] MEDS: METOPROLOL TARTRATE 25 MG TAB PO SCH ×2 (09:23→19:58)
[2023-03-08] MEDS: PANTOprazole 40 MG in SYRINGE 0 ML IV SCH (09:25)
--- NOTE | 2023-03-08 13:21 | Discharge Summary ---
Date of Service March 08, 2023 Admission HPI Per Admitting Provider Agnes is a 72 year old female with a PMH significant for hiatial hernia S/P Saji fundoplication in 2020, Munoz's esophagus, SSS S/P pacemaker placement in 2021, DMII, previous CVA, tardive dyskinesia, and chronic nausea/vomiting who presented to the [facility] ED on 03/05/23 for intractable nausea/vomiting, dehydration, and generalized weakness. In the ED the patient was initially tachycardic at 128 but otherwise stable. Labs were significant for an initial lactate of 2.2, BUN of 51, AG of 21 with bicarb of 19, and covid [address] of the head was read as no acute findings. Chest xray was read as no acute proc ess. CT of the abd/pelvis wo con was read as "1. No acute process within the abdomen or pelvis on unenhanced exam. 2. No bowel obstruction. 3. Colonic diverticulosis. No evidence for acute diverticulitis.". Prior to admission the patient was given 1500 mL NSS, 1L LR, a dose of cefepime, 1gm IV tylenol, 4mg IV zofran, 40 mg IV pantoprazole, and 20 mg IV famotidine. Per chart review, the patient was recently seen in the GI clinic on 01/10 after her last EGD on 12/17/22. Findings were consistent with short segment munoz's esophagus; therapeutic dilation was also performed at that time. At the time of the exam the patient was lying in bed and appears uncomfortable, her daughter/POA is also sitting bedside, history was obtained from both. Since her fundoplication in 2020 the patient has had ongoing issues with intractable nausea/vomiting. She has lost approximately 130 lbs since then. She had a gastric emptying study last month at [facility] which was positive, per the patient's daughter. The patient has an appointment with a Gastroparesis specialist down in [place] on May 05. Since 02/27 the patient has had intractable nausea and vomiting after eating. They reported that she is even vomiting protein shakes at this point. The patient denies chocking on any emesis or having in go down her trachea. She denies recent fever, chills, chest pain, SOB, abd pain, hematemesis, coffee ground emesis, dysuria, hematuria, increased urinary frequency, diarrhea, LE swelling, and recent trauma. She has had progressive generalized weakness to the point that she is too weak to get out of bed. Her peripheral neuropathy has been exacerbated over the past 2 weeks. The patient looked at me and said "I just want the pain to go away". Due to the patient's severe clinical decline I had a long discussion with she and her daughter regarding goals of care and their wishes moving forward. I explained that I am concerned she is so malnourished to the point where she may not recover. At this time I don't think she would be able to wait until May 05 to see her Gastroparesis specialist if her symptoms remain this severe. The patient has a living will and is a DNR/DNI. I explained that I would like to have the [facility] team evaluate her again and have her evaluated by our Human Resources Support Specialist to see what options she has at this point. I discussed the possibility of having the patient evaluated by Palliative Medicine, the patient and her daughter are in agreement. I also spoke to the patient and her daughter regarding the possible need for Hospice on discharge due to her clinical decline and poor quality of life. The patient and her daughter expressed that they would like to discuss hospice if the patient has a poor prognosis moving forward. We explained that we will try and treat the patient's pain as best we can, but opioids will worsen her gastroparesis in the long run, the patient and her daughter expressed understanding. Please refer to Dr. Geronimo's attestation for any changes to the treatment plan Principal Diagnosis Adult failure to thrive, chronic gastroparesis, intractable nausea and vomiting Discharge Exam General-cachectic appearing elderly female. Alert and oriented. No fevers, no chills HEENT-head atraumatic and normocephalic, pupils equal and reactive to light, extraocular muscles intact Neck-no lymphadenopathy or thyromegaly, trachea midline Chest-clear to auscultation percussion. No rales wheezing or rhonchi Cardiac-regular rate and rhythm, normal S1 and S2, no murmurs Abdomen-normal bowel sounds, no hepatosplenomegaly. No distention. Diffuse abdominal tenderness. No rebound or guarding Extremities-no cyanosis, clubbing, or edema Neuro-cranial nerves II through XII intact, motor and sensory function within normal limits, strength symmetrical with generalized weakness, no focal deficits Psych-depressed affect Discharge Data Allergies Allergy/AdvReac Type Severity Reaction Status Date / Time adhesive Allergy Intermediate ITCHY RASH Verified 01/27/23 16:00 camphor [From Sarna Original] Allergy Intermediate ITCHY, Verified 01/27/23 16:01 BLISTERY RASH latex Allergy Intermediate itching Verified 01/27/23 16:00 menthol [From Sarna Original] Allergy Intermediate ITCHY, Verified 01/27/23 16:01 BLISTERY RASH methyl salicylate Allergy Intermediate ITCHY, Verified 01/27/23 16:00 [From Icy Hot] BLISTERING RASH nickel Allergy Intermediate swelling Verified 01/27/23 16:00 and redness sulfamethoxazole [Bactrim] Allergy Intermediate THROAT Verified 01/27/23 16:00 FELT FULL, MOUTH ULCERS trimethoprim [Bactrim] Allergy Intermediate THROAT Verified 01/27/23 16:00 FELT FULL, MOUTH ULCERS chlorpromazine Allergy Unknown CAN'T Verified 01/27/23 16:00 REMEMBER aspirin [From Aggrenox] AdvReac Intermediate MADE Verified 01/27/23 16:00 HEADACHE WORSE cyclobenzaprine AdvReac Intermediate psych Verified 01/27/23 16:00 [From Flexeril] complications dipyridamole [From Aggrenox] AdvReac Intermediate MADE Verified 01/27/23 16:00 HEADACHE WORSE loratadine AdvReac Intermediate AGITATED, Verified 01/27/23 16:00 IF CONTAINS DECONGESTANT--BECOMES MEAN oxycodone AdvReac Intermediate NAUSEA/VOMI Verified 01/27/23 16:00 TING prazosin AdvReac Intermediate ABD Verified 01/27/23 16:00 PAIN/NAUSEA/VOMITING Consultations 03/05/23 15:19 ED Decision to Admit Stat 03/05/23 16:41 Consult Gastroenterology Routine 03/05/23 16:58 Consult Palliative Care Routine Ordered Studies 03/05/23 11:48 CT head/brain wo con Stat 03/05/23 11:49 CT abd pelvis wo con Stat Hospital Course (1) Adult failure to thrive: Supportive care. She has elected to go home with hospice care which has been arranged . (2) Gastroparesis: Chronic. With intractable nausea and vomiting. She is receiving scheduled IV Reglan while hospitalized and as needed Phenergan was added on March 07. Appr eciate gastroenterology consultation and recommendations. (3) Munoz's esophagus: Protonix therapy (4) SVT (supraventricular tachycardia): Stable. Continue metoprolol (5) DM type 2 with diabetic peripheral neuropathy: ADA diet. Holding metformin and Jardiance. She is on low-dose Lantus therapy while hospitalized. Sliding scale coverage as needed. Oral intake is poor and she is comfort care measures. All diabetic medications will be discontinued (6) HTN (hypertension): Stable . Treated with lisinopril (7) Dyslipidemia: Will discontinue statin at this point (8) PTSD (post-traumatic stress disorder): Supportive care. Continue Venlafaxine and Buspar (9) CORINA (obstructive sleep apnea): Holding CPAP due to persistent nausea and vomiting and high risk for aspiration Plan Home with hospice today, March 08 Total Time Total Time Spent Total Time Spent (In Minutes): 40 minutes Discharge Plan Discharge Items Patient Disposition: Hospice - Home Reason For Visit: NAUSEA/VOMITING, FAILURE TO THRIVE Discharge Diagnosis: Failure to thrive, chronic gastroparesis, intractable nausea and vomiting Condition on Discharge: Fair Activity: As commented below Activity Comment: Bedrest Non-emergency contact: Primary Care Provider Call non-emergency contact if: you have any medication questions Follow-up/Referrals: Jennifer Che CRNP [Primary Care Provider] - Diet: Other - See Diet Comment Addtl Attending Provider Instructions: Hospice services will provide continuing care at home Pending Studies at Discharge: No Stand-Alone Forms: [facility] Medications and DC Order Prescriptions: New morphine concentrate 100 mg/5 mL (20 mg/mL) Solution 5 mg PO Q3H PRN (Reason: pain) Qty: 20 0RF albuterol sulfate [Ventolin HFA] 90 mcg/actuation Hfa Aerosol Inhaler 2 puff inhalation Q6H PRN (Reason: shortness of breath or wheezing) Qty: 6.7 0RF Discontinued (DME) OneTouch Ultra Test Strip See Rx Instructions .ROUTE .MEDSUPPLY Qty: 100 0RF Rx Instructions: Check blood sugar before meals and at bedtime (DME) lancets [OneTouch UltraSoft Lancets] Misc See Rx Instructions .Route Qty: 200 3RF Rx Instructions: Check blood sugar before meals and at bedtime (DME) OneTouch Verio test strips Strip See Rx Instructions .Route Qty: 100 3RF Rx Instructions: Check blood sugar before meals and at bedtime metformin 1,000 mg tablet 1,000 mg PO BID Patient Comments: 01/02/23: Prescribed 1000mg BID, but patient takes 2000mg once daily (DME) pen needle, diabetic [BD Ultra-Fine Shreya Pen Needle] 32 gauge x 5/32" needle See Rx Instructions .ROUTE .MEDSUPPLY Qty: 100 3RF Rx Instructions: As directed (DME) blood-glucose meter Kit See Rx Instructions .Route Qty: 1 0RF Rx Instructions: E11.42 check BSG four times daily metoprolol tartrate 25 mg tablet 12.5 mg PO DAILY albuterol sulfate [Proventil HFA] 90 mcg/actuation HFA aerosol inhaler 2 puff inhalation Q6H PRN (Reason: shortness of breath or wheezing) Qty: 8.5 0RF insulin glargine [Lantus Solostar U-100 Insulin] 100 unit/mL (3 mL) insulin pen 10 unit subcut QPM Hold Instructions: Hypoglycemia pantoprazole [Protonix] 40 mg tablet,delayed release (DR/EC) 40 mg PO QAM gabapentin 300 mg capsule 300 mg PO TID Rx Instructions: PER ORDER--Take by mouth three times daily, TOTAL DOSE AT HS 400 MG. gabapentin 100 mg capsule 100 mg PO QPM Rx Instructions: TOTAL DOSE QPM 400 MG--Take with 300 MG CAP. lisinopril 10 mg tablet 5 mg PO QAM atorvastatin 40 mg tablet 40 mg PO QAM buspirone 5 mg tablet See Rx Instructions .ROUTE .COMPLEX Rx Instructions: 2 tabs in the morning and 1 tab in the evening orally; aspirin [Adult Low Dose Aspirin] 81 mg tablet,delayed release (DR/EC) 81 mg PO QAM fluticasone propionate [Flonase Allergy Relief] 50 mcg/actuation spray,suspension 2 spray intranasal DAILY PRN (Reason: Allergy Symptoms) Rx Instructions: administer into each nostril cholecalciferol (vitamin D3) 50 mcg (2,000 unit) capsule 50 mcg PO QAM Jardiance 25 mg tablet 25 mg PO QAM venlafaxine 75 mg capsule,extended release 24hr 75 mg PO DAILY Discharge Orders: Discharge Order (Routine); Ordered 03/08/23 Ordered By: Marcial Delcid/Other Patient Handouts: Managing Type 2 Diabetes Admission Data Admit Date/Time: 03/07/23 12:26 Attending Provider: Marcial Nesbitt Admit Provider: Liban Geronimo Primary Care Provider: Jennifer Che Other Providers: [facility] ; Liban Geronimo ; Lenny Guerrier ; Christelle Chandra ; Carley Bonilla Coding Level of Care Code 56577 INP/OBS DISCH >30 MIN Diagnoses Adult failure to thrive R62.7 Gastroparesis K31.84 Munoz's esophagus K22.70 SVT (supraventricular tachycardia) I47.1 DM type 2 with diabetic peripheral neuropathy E11.42 HTN (hypertension) I10 Dyslipidemia E78.5 PTSD (post-traumatic stress disorder) F43.10 CORINA (obstructive sleep apnea) G47.33
--- NOTE | 2023-03-08 15:47 | Hospitalist Progress Note ---
Date of Service March 08, 2023 Assessment & Plan (1) Adult failure to thrive: Plan: Supportive care. She has elected to go home with hospice care which has been arranged . (2) Gastroparesis: Plan: Chronic. With intractable nausea and vomiting. She is receiving scheduled IV Reglan while hospitalized and as needed Phenergan was added on March 07. Appreciate gastroenterology consultation and recommendations. (3) Cortez's esophagus: Plan: Protonix therapy (4) SVT (supraventricular tachycardia): Plan: Stable. Continue metoprolol (5) DM type 2 with diabetic peripheral neuropathy: Plan: ADA diet. Holding metformin and Jardiance. She is on low-dose Lantus therapy while hospitalized. Sliding scale coverage as needed. Oral intake is poor and she is comfort care measures. All diabetic medications will be discontinued (6) HTN (hypertension): Plan: Stable . Treated with lisinopril (7) Dyslipidemia: Plan: Will discontinue statin at this point (8) PTSD (post-traumatic stress disorder): Plan: Supportive care. Continue Venlafaxine and Buspar (9) CORINA (obstructive sleep apnea): Plan: Holding CPAP due to persistent nausea and vomiting and high risk for aspiration Plan Home with hospice hopefully tomorrow, March 09 Admission and Anticipated Discharge Date Admission Date: March 07, 2023 Subjective Stable overall. Anticipated discharge to home today with hospice has been postponed due to transportation problems Review of Systems Review of Systems: Constitutional-no fever or chills ENT-no blurred vision, no double vision, no epistaxis, no sore throat Respiratory-no cough, no wheezing, no shortness of breath Cardiac-no palpitations, no chest pain, no syncope GI-persistent nausea. Persistent diffuse abdominal pain. Denies melena, denies hematochezia -no urinary retention, no urinary incontinence, no dysuria, no hematuria Musculoskeletal-no joint pain, no muscle tenderness Skin-no bruising, no rashes, no pruritus Neuro-no isolated weakness, no paresthesia, no weakness Psych-depressed affect Physical Exam Physical Exam: General-cachectic appearing elderly female. Alert and oriented. No fevers, no chills HEENT-head atraumatic and normocephalic, pupils equal and reactive to light, extraocular muscles intact Neck-no lymphadenopathy or thyromegaly, trachea midline Chest-clear to auscultation percussion. No rales wheezing or rhonchi Cardiac-regular rate and rhythm, normal S1 and S2, no murmurs Abdomen-normal bowel sounds, no hepatosplenomegaly. No distention. Diffuse abdominal tenderness. No rebound or guarding Extremities-no cyanosis, clubbing, or edema Neuro-cranial nerves II through XII intact, motor and sensory function within normal limits, strength symmetrical with generalized weakness, no focal deficits Psych-depressed affect Results & Data Results & Data Vital Signs (Past 12 Hours) Vital Signs Pulse BP Pulse Ox O2 Del Method O2 Flow Rate 03/08/23 08:15 59 L 129/70 99 Nasal Cannula 2 03/08/23 08:15 Nasal Cannula 2 Laboratory Results 03/07/23 06:13 03/07/23 06:13 PG Care Time/CCT Total # of Minutes Spent Total Time Spent with Patient: Total time spent is greater than 50% in coordination of care (as documented) at patient's floor/unit and/or counseling patient: Coding Level of Care Code 87999 SUB INP/OBS CARE 2/35MIN Diagnoses Adult failure to thrive R62.7 Gastroparesis K31.84 Cortez's esophagus K22.70 SVT (supraventricular tachycardia) I47.1 DM type 2 with diabetic peripheral neuropathy E11.42 HTN (hypertension) I10 Dyslipidemia E78.5 PTSD (post-traumatic stress disorder) F43.10 CORINA (obstructive sleep apnea) G47.33
[2023-03-09] MEDS: METOCLOPRAMIDE HCL INJ 5 MG/ML 2 ML VIAL IV SCH ×3 (02:12→13:03)
[2023-03-09] MEDS: MoRPHine SULFATE 10 MG/0.5 ML UDP PO PRN ×2 (08:14→15:09)
[2023-03-09] MEDS: busPIRone 5 MG TAB PO SCH (08:16)
[2023-03-09] MEDS: GABAPENTIN 300 MG CAP PO SCH ×2 (08:16→13:03)
[2023-03-09] MEDS: VENLAFAXINE HCL XR 75 MG CAPXR PO SCH (08:16)
[2023-03-09] MEDS: PHENAZOPYRIDINE HCL 100 MG TAB PO SCH ×2 (08:16→13:03)
[2023-03-09] MEDS: ASPIRIN 81 MG ECTAB PO SCH (08:16)
[2023-03-09] MEDS: METOPROLOL TARTRATE 25 MG TAB PO SCH (08:19)
--- NOTE | 2023-03-09 08:59 | Discharge Summary ---
Date of Service March 09, 2023 Admission HPI Per Admitting Provider Agnes is a 72 year old female with a PMH significant for hiatial hernia S/P Saji fundoplication in 2020, Munoz's esophagus, SSS S/P pacemaker placement in 2021, DMII, previous CVA, tardive dyskinesia, and chronic nausea/vomiting who presented to the [facility] ED on 03/05/23 for intractable nausea/vomiting, dehydration, and generalized weakness. In the ED the patient was initially tachycardic at 128 but otherwise stable. Labs were significant for an initial lactate of 2.2, BUN of 51, AG of 21 with bicarb of 19, and covid [address] of the head was read as no acute findings. Chest xray was read as no acute proc ess. CT of the abd/pelvis wo con was read as "1. No acute process within the abdomen or pelvis on unenhanced exam. 2. No bowel obstruction. 3. Colonic diverticulosis. No evidence for acute diverticulitis.". Prior to admission the patient was given 1500 mL NSS, 1L LR, a dose of cefepime, 1gm IV tylenol, 4mg IV zofran, 40 mg IV pantoprazole, and 20 mg IV famotidine. Per chart review, the patient was recently seen in the GI clinic on 01/10 after her last EGD on 12/17/22. Findings were consistent with short segment munoz's esophagus; therapeutic dilation was also performed at that time. At the time of the exam the patient was lying in bed and appears uncomfortable, her daughter/POA is also sitting bedside, history was obtained from both. Since her fundoplication in 2020 the patient has had ongoing issues with intractable nausea/vomiting. She has lost approximately 130 lbs since then. She had a gastric emptying study last month at [facility] which was positive, per the patient's daughter. The patient has an appointment with a Gastroparesis specialist down in [place] on May 05. Since 02/27 the patient has had intractable nausea and vomiting after eating. They reported that she is even vomiting protein shakes at this point. The patient denies chocking on any emesis or having in go down her trachea. She denies recent fever, chills, chest pain, SOB, abd pain, hematemesis, coffee ground emesis, dysuria, hematuria, increased urinary frequency, diarrhea, LE swelling, and recent trauma. She has had progressive generalized weakness to the point that she is too weak to get out of bed. Her peripheral neuropathy has been exacerbated over the past 2 weeks. The patient looked at me and said "I just want the pain to go away". Due to the patient's severe clinical decline I had a long discussion with she and her daughter regarding goals of care and their wishes moving forward. I explained that I am concerned she is so malnourished to the point where she may not recover. At this time I don't think she would be able to wait until May 05 to see her Gastroparesis specialist if her symptoms remain this severe. The patient has a living will and is a DNR/DNI. I explained that I would like to have the [facility] GI team evaluate her again and have her evaluated by our Logistics Support to see what options she has at this point. I discussed the possibility of having the patient evaluated by Palliative Medicine, the patient and her daughter are in agreement. I also spoke to the patient and her daughter regarding the possible need for Hospice on discharge due to her clinical decline and poor quality of life. The patient and her daughter expressed that they would like to discuss hospice if the patient has a poor prognosis moving forward. We explained that we will try and treat the patient's pain as best we can, but opioids will worsen her gastroparesis in the long run, the patient and her daughter expressed understanding. Please refer to Dr. Geronimo's attestation for any changes to the treatment plan Principal Diagnosis Adult failure to thrive, chronic gastroparesis, intractable nausea and vomiting Discharge Data Allergies Allergy/AdvReac Type Severity Reaction Status Date / Time adhesive Allergy Intermediate ITCHY RASH Verified 01/27/23 16:00 camphor [From Sarna Original] Allergy Intermediate ITCHY, Verified 01/27/23 16:01 BLISTERY RASH latex Allergy Intermediate itching Verified 01/27/23 16:00 menthol [From Sarna Original] Allergy Intermediate ITCHY, Verified 01/27/23 16:01 BLISTERY RASH methyl salicylate Allergy Intermediate ITCHY, Verified 01/27/23 16:00 [From Icy Hot] BLISTERING RASH nickel Allergy Intermediate swelling Verified 01/27/23 16:00 and redness sulfamethoxazole [Bactrim] Allergy Intermediate THROAT Verified 01/27/23 16:00 FELT FULL, MOUTH ULCERS trimethoprim [Bactrim] Allergy Intermediate THROAT Verified 01/27/23 16:00 FELT FULL, MOUTH ULCERS chlorpromazine Allergy Unknown CAN'T Verified 01/27/23 16:00 REMEMBER aspirin [From Aggrenox] AdvReac Intermediate MADE Verified 01/27/23 16:00 HEADACHE WORSE cyclobenzaprine AdvReac Intermediate psych Verified 01/27/23 16:00 [From Flexeril] complications dipyridamole [From Aggrenox] AdvReac Intermediate MADE Verified 01/27/23 16:00 HEADACHE WORSE loratadine AdvReac Intermediate AGITATED, Verified 01/27/23 16:00 IF CONTAINS DECONGESTANT--BECOMES MEAN oxycodone AdvReac Intermediate NAUSEA/VOMI Verified 01/27/23 16:00 TING prazosin AdvReac Intermediate ABD Verified 01/27/23 16:00 PAIN/NAUSEA/VOMITING Consultations 03/05/23 15:19 ED Decision to Admit Stat 03/05/23 16:41 Consult Gastroenterology Routine 03/05/23 16:58 Consult Palliative Care Routine Ordered Studies 03/05/23 11:48 CT head/brain wo con Stat 03/05/23 11:49 CT abd pelvis wo con Stat Total Time Total Time Spent Total Time Spent (In Minutes): 40 minutes Discharge Plan Discharge Items Patient Disposition: Hospice - Home Reason For Visit: NAUSEA/VOMITING, FAILURE TO THRIVE Discharge Diagnosis: Failure to thrive, chronic gastroparesis, intractable nausea and vomiting Condition on Discharge: Fair Activity: As commented below Activity Comment: Bedrest Non-emergency contact: Primary Care Provider Call non-emergency contact if: you have any medication questions Follow-up/Referrals: Jennifer Che CRNP [Primary Care Provider] - Diet: Other - See Diet Comment Addtl Attending Provider Instructions: Hospice services will provide continuing care at home Pending Studies at Discharge: No Stand-Alone Forms: My [employer] Medications and DC Order Prescriptions: New morphine concentrate 100 mg/5 mL (20 mg/mL) Solution 5 mg PO Q3H PRN (Reason: pain) Qty: 20 0RF albuterol sulfate [Ventolin HFA] 90 mcg/actuation Hfa Aerosol Inhaler 2 puff inhalation Q6H PRN (Reason: shortness of breath or wheezing) Qty: 6.7 0RF morphine concentrate 100 mg/5 mL (20 mg/mL) solution 10 mg PO Q3H PRN (Reason: pain) Qty: 30 0RF Discontinued (DME) OneTouch Ultra Test Strip See Rx Instructions .ROUTE .MEDSUPPLY Qty: 100 0RF Rx Instructions: Check blood sugar before meals and at bedtime (DME) lancets [OneTouch UltraSoft Lancets] Misc See Rx Instructions .Route Qty: 200 3RF Rx Instructions: Check blood sugar before meals and at bedtime (DME) OneTouch Verio test strips Strip See Rx Instructions .Route Qty: 100 3RF Rx Instructions: Check blood sugar before meals and at bedtime metformin 1,000 mg tablet 1,000 mg PO BID Patient Comments: 01/02/23: Prescribed 1000mg BID, but patient takes 2000mg once daily (DME) pen needle, diabetic [BD Ultra-Fine Shreya Pen Needle] 32 gauge x 5/32" needle See Rx Instructions .ROUTE .MEDSUPPLY Qty: 100 3RF Rx Instructions: As directed ([facility]) blood-glucose meter Kit See Rx Instructions .Route Qty: 1 0RF Rx Instructions: E11.42 check BSG four times daily metoprolol tartrate 25 mg tablet 12.5 mg PO DAILY albuterol sulfate [Proventil HFA] 90 mcg/actuation HFA aerosol inhaler 2 puff inhalation Q6H PRN (Reason: shortness of breath or wheezing) Qty: 8.5 0RF insulin glargine [Lantus Solostar U-100 Insulin] 100 unit/mL (3 mL) insulin pen 10 unit subcut QPM Hold Instructions: Hypoglycemia pantoprazole [Protonix] 40 mg tablet,delayed release (DR/EC) 40 mg PO QAM gabapentin 300 mg capsule 300 mg PO TID Rx Instructions: PER ORDER--Take by mouth three times daily, TOTAL DOSE AT HS 400 MG. gabapentin 100 mg capsule 100 mg PO QPM Rx Instructions: TOTAL DOSE QPM 400 MG--Take with 300 MG CAP. lisinopril 10 mg tablet 5 mg PO QAM atorvastatin 40 mg tablet 40 mg PO QAM buspirone 5 mg tablet See Rx Instructions .ROUTE .COMPLEX Rx Instructions: 2 tabs in the morning and 1 tab in the evening orally; aspirin [Adult Low Dose Aspirin] 81 mg tablet,delayed release (DR/EC) 81 mg PO QAM fluticasone propionate [Flonase Allergy Relief] 50 mcg/actuation spray,suspension 2 spray intranasal DAILY PRN (Reason: Allergy Symptoms) Rx Instructions: administer into each nostril cholecalciferol (vitamin D3) 50 mcg (2,000 unit) capsule 50 mcg PO QAM Jardiance 25 mg tablet 25 mg PO QAM venlafaxine 75 mg capsule,extended release 24hr 75 mg PO DAILY Discharge Orders: Discharge Order (Routine); Ordered 03/09/23 Ordered By: Marcial Delcid/Other Patient Handouts: Managing Type 2 Diabetes Admission Data Admit Date/Time: 03/07/23 12:26 Attending Provider: Marcial Nesbitt Admit Provider: Liban Geronimo Primary Care Provider: Jennifer Che Other Providers: [facility] ; Liban Geronimo ; Lenny Guerrier ; Christelle Chandra ; Carley Bonilla Coding Level of Care Code 69878 INP/OBS DISCH >30 MIN Diagnoses
--- NOTE | 2023-03-09 09:57 | Discharge Summary ---
Date of Service March 09, 2023 Admission HPI Per Admitting Provider Agnes is a 72 year old female with a PMH significant for hiatial hernia S/P Saji fundoplication in 2020, Munoz's esophagus, SSS S/P pacemaker placement in 2021, DMII, previous CVA, tardive dyskinesia, and chronic nausea/vomiting who presented to the [facility] ED on 03/05/23 for intractable nausea/vomiting, dehydration, and generalized weakness. In the ED the patient was initially tachycardic at 128 but otherwise stable. Labs were significant for an initial lactate of 2.2, BUN of 51, AG of 21 with bicarb of 19, and covid [address] of the head was read as no acute findings. Chest xray was read as no acute proc ess. CT of the abd/pelvis wo con was read as "1. No acute process within the abdomen or pelvis on unenhanced exam. 2. No bowel obstruction. 3. Colonic diverticulosis. No evidence for acute diverticulitis.". Prior to admission the patient was given 1500 mL NSS, 1L LR, a dose of cefepime, 1gm IV tylenol, 4mg IV zofran, 40 mg IV pantoprazole, and 20 mg IV famotidine. Per chart review, the patient was recently seen in the GI clinic on 01/10 after her last EGD on 12/17/22. Findings were consistent with short segment munoz's esophagus; therapeutic dilation was also performed at that time. At the time of the exam the patient was lying in bed and appears uncomfortable, her daughter/POA is also sitting bedside, history was obtained from both. Since her fundoplication in 2020 the patient has had ongoing issues with intractable nausea/vomiting. She has lost approximately 130 lbs since then. She had a gastric emptying study last month at [facility] which was positive, per the patient's daughter. The patient has an appointment with a Gastroparesis specialist down in [place] on May 05. Since 02/27 the patient has had intractable nausea and vomiting after eating. They reported that she is even vomiting protein shakes at this point. The patient denies chocking on any emesis or having in go down her trachea. She denies recent fever, chills, chest pain, SOB, abd pain, hematemesis, coffee ground emesis, dysuria, hematuria, increased urinary frequency, diarrhea, LE swelling, and recent trauma. She has had progressive generalized weakness to the point that she is too weak to get out of bed. Her peripheral neuropathy has been exacerbated over the past 2 weeks. The patient looked at me and said "I just want the pain to go away". Due to the patient's severe clinical decline I had a long discussion with she and her daughter regarding goals of care and their wishes moving forward. I explained that I am concerned she is so malnourished to the point where she may not recover. At this time I don't think she would be able to wait until May 05 to see her Gastroparesis specialist if her symptoms remain this severe. The patient has a living will and is a DNR/DNI. I explained that I would like to have the [facility] GI team evaluate her again and have her evaluated by our Diesel Engine Fitter to see what options she has at this point. I discussed the possibility of having the patient evaluated by Palliative Medicine, the patient and her daughter are in agreement. I also spoke to the patient and her daughter regarding the possible need for Hospice on discharge due to her clinical decline and poor quality of life. The patient and her daughter expressed that they would like to discuss hospice if the patient has a poor prognosis moving forward. We explained that we will try and treat the patient's pain as best we can, but opioids will worsen her gastroparesis in the long run, the patient and her daughter expressed understanding. Please refer to Dr. Geronimo's attestation for any changes to the treatment plan Principal Diagnosis Adult failure to thrive, intractable nausea and vomiting Discharge Data Allergies Allergy/AdvReac Type Severity Reaction Status Date / Time adhesive Allergy Intermediate ITCHY RASH Verified 01/27/23 16:00 camphor [From Sarna Original] Allergy Intermediate ITCHY, Verified 01/27/23 16:01 BLISTERY RASH latex Allergy Intermediate itching Verified 01/27/23 16:00 menthol [From Sarna Original] Allergy Intermediate ITCHY, Verified 01/27/23 16:01 BLISTERY RASH methyl salicylate Allergy Intermediate ITCHY, Verified 01/27/23 16:00 [From Icy Hot] BLISTERING RASH nickel Allergy Intermediate swelling Verified 01/27/23 16:00 and redness sulfamethoxazole [Bactrim] Allergy Intermediate THROAT Verified 01/27/23 16:00 FELT FULL, MOUTH ULCERS trimethoprim [Bactrim] Allergy Intermediate THROAT Verified 01/27/23 16:00 FELT FULL, MOUTH ULCERS chlorpromazine Allergy Unknown CAN'T Verified 01/27/23 16:00 REMEMBER aspirin [From Aggrenox] AdvReac Intermediate MADE Verified 01/27/23 16:00 HEADACHE WORSE cyclobenzaprine AdvReac Intermediate psych Verified 01/27/23 16:00 [From Flexeril] complications dipyridamole [From Aggrenox] AdvReac Intermediate MADE Verified 01/27/23 16:00 HEADACHE WORSE loratadine AdvReac Intermediate AGITATED, Verified 01/27/23 16:00 IF CONTAINS DECONGESTANT--BECOMES MEAN oxycodone AdvReac Intermediate NAUSEA/VOMI Verified 01/27/23 16:00 TING prazosin AdvReac Intermediate ABD Verified 01/27/23 16:00 PAIN/NAUSEA/VOMITING Consultations 03/05/23 15:19 ED Decision to Admit Stat 03/05/23 16:41 Consult Gastroenterology Routine 03/05/23 16:58 Consult Palliative Care Routine Ordered Studies 03/05/23 11:48 CT head/brain wo con Stat 03/05/23 11:49 CT abd pelvis wo con Stat Total Time Total Time Spent Total Time Spent (In Minutes): 40 minutes Discharge Plan Discharge Items Patient Disposition: Hospice - Home Reason For Visit: NAUSEA/VOMITING, FAILURE TO THRIVE Discharge Diagnosis: Failure to thrive, chronic gastroparesis, intractable nausea and vomiting Condition on Discharge: Fair Activity: As commented below Activity Comment: Bedrest Non-emergency contact: Primary Care Provider Call non-emergency contact if: you have any medication questions Follow-up/Referrals: Jennifer Che CRNP [Primary Care Provider] - Diet: Other - See Diet Comment Addtl Attending Provider Instructions: Hospice services will provide continuing care at home Pending Studies at Discharge: No Stand-Alone Forms: My [facility] [place] Medications and DC Order Prescriptions: New albuterol sulfate [Ventolin HFA] 90 mcg/actuation Hfa Aerosol Inhaler 2 puff inhalation Q6H PRN (Reason: shortness of breath or wheezing) Qty: 6.7 0RF morphine concentrate 100 mg/5 mL (20 mg/mL) solution 10 mg PO Q3H PRN (Reason: pain) Qty: 30 0RF Discontinued (DME) OneTouch Ultra Test Strip See Rx Instructions .ROUTE .MEDSUPPLY Qty: 100 0RF Rx Instructions: Check blood sugar before meals and at bedtime (DME) lancets [OneTouch UltraSoft Lancets] Misc See Rx Instructions .Route Qty: 200 3RF Rx Instructions: Check blood sugar before meals and at bedtime (DME) OneTouch Verio test strips Strip See Rx Instructions .Route Qty: 100 3RF Rx Instructions: Check blood sugar before meals and at bedtime metformin 1,000 mg tablet 1,000 mg PO BID Patient Comments: 01/02/23: Prescribed 1000mg BID, but patient takes 2000mg once daily (DME) pen needle, diabetic [BD Ultra-Fine Shreya Pen Needle] 32 gauge x 5/32" needle See Rx Instructions .ROUTE .MEDSUPPLY Qty: 100 3RF Rx Instructions: As directed (DME) blood-glucose meter Kit See Rx Instructions .Route Qty: 1 0RF Rx Instructions: E11.42 check BSG four times daily metoprolol tartrate 25 mg tablet 12.5 mg PO DAILY albuterol sulfate [Proventil HFA] 90 mcg/actuation HFA aerosol inhaler 2 puff inhalation Q6H PRN (Reason: shortness of breath or wheezing) Qty: 8.5 0RF insulin glargine [Lantus Solostar U-100 Insulin] 100 unit/mL (3 mL) insulin pen 10 unit subcut QPM Hold Instructions: Hypoglycemia pantoprazole [Protonix] 40 mg tablet,delayed release (DR/EC) 40 mg PO QAM gabapentin 300 mg capsule 300 mg PO TID Rx Instructions: PER ORDER--Take by mouth three times daily, TOTAL DOSE AT HS 400 MG. gabapentin 100 mg capsule 100 mg PO QPM Rx Instructions: TOTAL DOSE QPM 400 MG--Take with 300 MG CAP. lisinopril 10 mg tablet 5 mg PO QAM atorvastatin 40 mg tablet 40 mg PO QAM buspirone 5 mg tablet See Rx Instructions .ROUTE .COMPLEX Rx Instructions: 2 tabs in the morning and 1 tab in the evening orally; aspirin [Adult Low Dose Aspirin] 81 mg tablet,delayed release (DR/EC) 81 mg PO QAM fluticasone propionate [Flonase Allergy Relief] 50 mcg/actuation spray,suspen william 2 spray intranasal DAILY PRN (Reason: Allergy Symptoms) Rx Instructions: administer into each nostril cholecalciferol (vitamin D3) 50 mcg (2,000 unit) capsule 50 mcg PO QAM Jardiance 25 mg tablet 25 mg PO QAM venlafaxine 75 mg capsule,extended release 24hr 75 mg PO DAILY Discharge Orders: Discharge Order (Routine); Ordered 03/09/23 Ordered By: Marcial Delcid/Other Patient Handouts: Managing Type 2 Diabetes Admission Data Admit Date/Time: 03/07/23 12:26 Attending Provider: Marcial Nesbitt Admit Provider: Liban Geronimo Primary Care Provider: Jennifer Che Other Providers: [facility] ; Liban Geronimo ; Lenny Guerrier ; Christelle Chandra ; Carley Bonilla Coding Level of Care Code 18847 INP/OBS DISCH >30 MIN Diagnoses
[2023-03-09] MEDS: PANTOprazole 40 MG in SYRINGE 0 ML IV SCH (10:21)
[2023-03-09] MEDS: MoRPHine SULFATE 2 MG/ML CARP IV PRN (10:21)
== END 2023-03-09 16:19 | disposition hospice, home (50) ==
LOC: ED 11:06 → 2N 11:06 → SUATTDRO 16:40 → 2N 18:09 → 3W 03-07 16:47